=== PATIENT | female | born 1980 | race Caucasian/White ===

== ENCOUNTER 2020-05-28 09:29 | Outpatient (CLI) | payer BC, SELFPAY ==
--- NOTE | ~2020-05-28 | XR_ITS ---
EXAMINATION: XR knee RT min 4V DATE: 05/28/2020 09:55 INDICATION: Right knee pain TECHNIQUE: Four views of the right knee were obtained. COMPARISON: None. FINDINGS: Alignment is normal. No fracture or osteochondral lesion. There is mild tricompartmental os teoarthritis characterized by tiny marginal osteophytes. No joint effusion/synovitis. Soft tissues a re unremarkable. IMPRESSION: 1. No acute osseous abnormality. Reviewed, dictated and finalized at location A.
[2020-05-28 09:49] LABS: Basophils Absolute Auto 0.04 K/mm3 (0.00-0.10); Basophils Percent Auto 0.5 % (0.0-1.0); Eosinophils Absolute Auto 0.14 K/mm3 (0.02-0.50); Eosinophils Percent Auto 1.9 % (1.0-6.0); Hematocrit 36.4 % (35.0-49.0); Hemoglobin 12.1 g/dL (12.0-15.0); Immature Granulocyte Absolute 0.03 K/mm3 (0.00-0.00); Immature Granulocyte Percent A 0.4 % (0.0-0.0); Lymphocytes Absolute Auto 2.71 K/mm3 (1.10-4.50); Lymphocytes Percent Auto 36.5 % (18.0-42.0); Mean Corpuscular HGB Conc 33.2 g/dL (32.0-36.0); Mean Corpuscular Volume 81.3 fL (78.0-102.0); Mean Platelet Volume 9.9 fl (9.2-11.8); Monocytes Percent Auto 6.7 % (2.0-11.0); Platelet Count Result 242 K/mm3 (150-420); Red Blood Count 4.48 M/mm3 (4.20-5.40); Red Cell Distribution Width 13.2 % (11.6-14.4); White Blood Count 7.4 K/mm3 (4.8-10.8)
[2020-05-28 11:13] LABS: Alanine Aminotransferase 22 U/L (14-59); Albumin Level 3.8 g/dL (3.4-5.0); Alkaline Phosphatase 83 U/L (46-116); Anion Gap 13.1 mmol/L (7-16); Aspartate Amino Transferase 16 U/L (15-37); Bilirubin,Total 0.5 mg/dL (0.00-1.00); Blood Urea Nitrogen 10 mg/dL (7-18); Calcium 8.5 mg/dL (8.5-10.1); Carbon Dioxide 25 mmol/L (21-32); Chloride 105 mmol/L (98-108); Cholesterol 187 mg/dL (0-200); Estimated Glomerular Filt Rate > 60; Free T3 2.27 pg/mL (2.18-3.98); Free T4 Free Thyroxine 1.13 ng/dL (0.76-1.46); Glucose 104 mg/dL (70-99); HDL Direct 49 mg/dL (40-60); LDL Cholesterol Calculated 118 mg/dL (<130); Osmolality Calculated 287 mOsm/kg (285-295); Potassium 4.1 mmol/L (3.5-5.1); Sodium 139 mmol/L (136-145); Thyroid Stimulating Hormone 1.31 uIU/mL (0.36-3.74); Triglycerides 99 mg/dL (0-150)
== END 2020-05-28 09:30 | disposition home or self-care (01) ==
LOC: CHSLAB 09:35
PROVIDERS: PCP Internal Medicine; Visit Provider Internal Medicine
DX: R53.83 Other fatigue (principal); I10 Essential (primary) hypertension; M25.561 Pain in right knee
CPT/HCPCS: 36415; 73564; 80053; 80061; 84439; 84443; 84481; 85025

== ENCOUNTER 2021-11-07 16:37 | Emergency (ER) | payer BC, SELFPAY ==
[2021-11-07 16:42] VITALS: BP 183/102; PULSE 84; RESP 16; TEMP 37.1; O2SAT 100
--- NOTE | 2021-11-07 16:52 | ED.URI ---
HPI - URI/Sore Throat General Chief Complaint: Upper Respiratory Infection Stated Complaint: SORE THROAT/HEADACHE/FEVER/EARACHE Time Seen by Provider: 11/07/21 16:52 Source: patient and RN notes reviewed Mode of arrival: ambulatory Limitations: no limitations History of Present Illness HPI Narrative: 41-year-old female presents with concern for left ear pain. She reports pressure behind her eyes, sore throat, headache. Reports symptoms started yesterday. She denies [id number] intervention. She denies cough, shortness of breath, body aches, chills, sweats. Reports fever yesterday. MD elicited complaint: cough and sore throat Related Data Allergies Allergy/AdvReac Type Severity Reaction Status Date / Time No Known Allergies Allergy Unverified 07/19/15 12:09 Review of Systems Review of Systems: CONSTITUTIONAL: Denies malaise, chills, sweats. Reports fever yesterday. EYES: Denies visual changes, redness, or discharge. ENT: Denies rhinorrhea, congestion. Reports sinus pain, otalgia and sore throat. CARDIOVASCULAR: Denies chest pain, palpitations, or edema. RESPIRATORY: Denies cough. Denies dyspnea. GASTROINTESTINAL: Denies abdominal pain, nausea, vomiting, diarrhea SKIN: Denies rash or itching. MUSCULOSKELETAL: Denies myalgia. NEUROLOGIC: Reports headache. All systems reviewed & are unremarkable except as noted in HPI and below PMFSH Comments At time of signature, agree with nursing past medical, surgical, social and family history. There is no relevant family history pertinent to the presenting complaint Exam Narrative: GENERAL: Well-appearing, well-nourished, and in no acute distress. HEAD: Normocephalic EYES: PERRLA, conjunctivae clear ENT: Nares clear. Mucous membranes moist. TM pearly valdez with sharp light reflex bilaterally; no tragal tenderness. Oropharynx not erythematous without lesions. Tonsils not enlarged and without exudate, no drooling, no hoarseness, no trismus, uvula midline. NECK: Supple. No lymphadenopathy CHEST: Clear to auscultation, breath sounds equal. No wheezing, rhonchi, rales, or stridor. No respiratory distress, speaks in full sentences. HEART: Regular rate and rhythm. No murmur heard. SKIN: Warm, dry, no rash. NEURO: Alert and oriented x3. PSYCH: Normal mood and affect Course Course Emergency Course: Patient is aware of diagnosis, understands and agrees to treatment plan. Anticipatory guidance given. Patient agrees to follow-up as directed and is aware of reasons to seek care at the emergency department. Portions of this record may have been created with voice recognition software Vital Signs Vital signs: Vital Signs Temperature 98.8 F 11/07/21 16:42 Pulse Rate 84 11/07/21 16:42 Respiratory Rate 16 11/07/21 16:42 Blood Pressure 183/102 H 11/07/21 16:42 Pulse Oximetry 100 11/07/21 16:42 Temperature 98.8 F 11/07/21 16:42 Pulse Rate 84 11/07/21 16:42 Respiratory Rate 16 11/07/21 16:42 Blood Pressure 183/102 H 11/07/21 16:42 Pulse Oximetry 100 11/07/21 16:42 Reviewed. MDM - URI/Sore Throat MDM Narrative Medical decision making narrative: Differential diagnosis considered: Hernandez virus, strep pharyngitis, allergic rhinitis, upper respiratory tract infection, sinusitis, rhinosinusitis, nasopharyngitis. viral pharyngitis, otitis media, otitis externa, pneumonia, bronchitis, viral cough syndrome, viral syndrome, and influenza. Exam findings show no acute concerns or changes; patient is non-toxic appearing and is in no distress. Patient is appropriate for outpatient treatment and follow-up. Lab Data Attestation: I reviewed the patient's lab results. Critical Care Time Critical Care Time Critical Care Time: No Discharge Plan Discharge Clinical Impression: Upper respiratory infection Qualifiers: URI type: unspecified viral URI Qualified Code(s): J06.9 - Acute upper respiratory infection, unspecified Patient Disposition: Home, Self-Care Condit
[2021-11-08 13:33] LABS: SARS-CoV-2 RNA PCR Negative
== END 2021-11-07 17:20 | disposition home or self-care (01) ==
PROVIDERS: Emergency Provider Nurse Practitioner; PCP Internal Medicine
DX: J06.9 Acute upper respiratory infection, unspecified (principal); Z20.822 Contact with and (suspected) exposure to COVID-19
CPT/HCPCS: 87426; 99213; C9803; G0463; U0003; U0005

== ENCOUNTER 2021-12-29 07:26 | Outpatient (CLI) | payer BC, SELFPAY ==
--- NOTE | ~2021-12-29 | MM_ITS ---
EXAMINATION: MM screening julia BI w kalpana HISTORY: Screening TECHNIQUE: Craniocaudal and mediolateral oblique 3-D tomosynthesis images were obtained and synthetic 2-D images were generated. CAD analysis was submitted and interpreted. COMPARISON: No prior mammogram is available for comparison at this institution. BREAST PARENCHYMAL COMPOSITION: There are scattered areas of fibroglandular density. FINDINGS: There is a focal mass in the upper outer quadrant of the left breast posteriorly. There are no suspicious masses, calcifications or architectural distortion in the right breast to suggest vanessa gnancy. IMPRESSION: 1. Focal mass upper outer quadrant of the left breast posteriorly. 2. Additional mammographic views and possible breast ultrasound are recommended. BI-RADS Category 0: Incomplete: Needs additional imaging evaluation. Reviewed, dictated and finalized at location A. CAL RECORDS SUPERVISOR IMPRESSION: 1. Focal mass upper outer quadrant of the left breast posteriorly. 2. Additional mammographic views and possible breast ultrasound are recommended . BI-RADS Category 0: Incomplete: Needs additional imaging evaluation.
== END 2021-12-29 07:27 | disposition home or self-care (01) ==
LOC: CHSIMG 07:27
PROVIDERS: PCP Internal Medicine; Visit Provider Obstetrics & Gynecology
DX: Z12.31 Encounter for screening mammogram for malignant neoplasm of breast (principal)
CPT/HCPCS: 77063; 77067

== ENCOUNTER 2022-01-08 09:40 | Outpatient (CLI) | payer BC, SELFPAY ==
--- NOTE | ~2022-01-08 | MMUS_ITS ---
EXAMINATION: MM diagnostic julia LT w kalpana, US breast LT limited HISTORY: Left breast mass on baseline screening mammogram TECHNIQUE: Additional 3-D tomosynthesis images of the left breast were performed and synthetic 2-D im ages were generated. CAD analysis was submitted and interpreted. High resolution limited left breast ultrasound was performed. COMPARISON: 12/29/2021 FINDINGS: MAMMOGRAPHIC FINDINGS: There is an approximately 11 mm oval, obscured, equal density mass in the outer breast at the 3:00 lo cation 12 cm from the nipple. ULTRASOUND: There is a 9 mm x 5 mm, hypoechoic, irregular mass with indistinct margins at the 2:00 location 8 cm from the nipple with no posterior features or internal vascularity. IMPRESSION: 1. Indeterminate left breast mass. 2. Ultrasound-guided biopsy is recommended. BI-RADS category 4, suspicious findings. Reviewed, dictated and finalized at location A. ENT SERVICE REP IMPRESSION: 1. Indeterminate left breast mass. 2. Ultrasound-guided biopsy is recommended. BI-RADS category 4, suspicious findings.
== END 2022-01-08 09:41 | disposition home or self-care (01) ==
PROVIDERS: PCP Internal Medicine; Visit Provider Obstetrics & Gynecology
DX: R92.8 Other abnormal and inconclusive findings on diagnostic imaging of breast (principal)
CPT/HCPCS: 76642; 77061; 77065; G0279

== ENCOUNTER 2022-02-10 07:33 | Outpatient (CLI) | payer BC, SELFPAY ==
[2022-02-10 07:53] LABS: Basophils Absolute Auto 0.07 K/mm3 (0.00-0.10); Basophils Percent Auto 0.7 % (0.0-1.0); Eosinophils Absolute Auto 0.21 K/mm3 (0.02-0.50); Eosinophils Percent Auto 2.2 % (1.0-6.0); Hematocrit 37.7 % (35.0-49.0); Hemoglobin 11.6 g/dL (12.0-15.0); Immature Granulocyte Absolute 0.03 K/mm3 (0.00-0.00); Immature Granulocyte Percent A 0.3 % (0.0-0.0); Lymphocytes Absolute Auto 3.86 K/mm3 (1.10-4.50); Lymphocytes Percent Auto 40.6 % (18.0-42.0); Mean Corpuscular HGB Conc 30.8 g/dL (32.0-36.0); Mean Corpuscular Hemoglobin 22.9 pg (27.0-31.0); Mean Corpuscular Volume 74.4 fL (78.0-102.0); Mean Platelet Volume 9.6 fl (9.2-11.8); Monocytes Absolute Auto 0.66 K/mm3 (0.10-0.90); Monocytes Percent Auto 6.9 % (2.0-11.0); Neutrophils Absolute Auto 4.7 K/mm3 (1.7-7.2); Neutrophils Percent Auto 49.3 % (50.0-70.0); Platelet Count Result 334 K/mm3 (150-420); Red Blood Count 5.07 M/mm3 (4.20-5.40); White Blood Count 9.5 K/mm3 (4.8-10.8)
[2022-02-10 08:03] LABS: Hemoglobin A1C 6.8 % (<5.7)
[2022-02-10 08:49] LABS: Alanine Aminotransferase 23 U/L (14-59); Albumin Level 3.8 g/dL (3.4-5.0); Alkaline Phosphatase 93 U/L (46-116); Anion Gap 8 mmol/L (8-16); Aspartate Amino Transferase 12 U/L (15-37); Bilirubin,Total 0.3 mg/dL (0.00-1.00); Blood Urea Nitrogen 13 mg/dL (7-18); Calcium 8.9 mg/dL (8.5-10.1); Carbon Dioxide 26 mmol/L (21-32); Chloride 103 mmol/L (98-108); Cholesterol 214 mg/dL (0-200); Estimated Glomerular Filt Rate > 60; Folic Acid 15.7 ng/mL (8.6->20); Glucose 127 mg/dL (70-99); HDL Direct 53 mg/dL (40-60); LDL Cholesterol Calculated 135 mg/dL (<130); Osmolality Calculated 286 mOsm/kg (285-295); Potassium 4.4 mmol/L (3.5-5.1); Sodium 137 mmol/L (136-145); Total Protein 6.9 g/dL (6.4-8.2); Triglycerides 130 mg/dL (0-150); Vitamin B12 269 pg/mL (193-986)
== END 2022-02-10 07:34 | disposition home or self-care (01) ==
LOC: CHSLAB 07:36
PROVIDERS: PCP Internal Medicine; Visit Provider Internal Medicine
DX: E11.9 Type 2 diabetes mellitus without complications (principal); I10 Essential (primary) hypertension
CPT/HCPCS: 36415; 80053; 80061; 82607; 82746; 83036; 85025

== ENCOUNTER 2022-10-06 08:21 | Outpatient (CLI) | payer BC, SELFPAY ==
[2022-10-06 08:56] LABS: Hematocrit 32.6 % (35.0-49.0); Hemoglobin 10.4 g/dL (12.0-15.0); Mean Corpuscular HGB Conc 31.9 g/dL (32.0-36.0); Mean Corpuscular Hemoglobin 24.3 pg (27.0-31.0); Mean Corpuscular Volume 76.2 fL (78.0-102.0); Mean Platelet Volume 9.6 fl (9.2-11.8); Platelet Count Result 250 K/mm3 (150-420); Red Blood Count 4.28 M/mm3 (4.20-5.40); Red Cell Distribution Width 13.8 % (11.6-14.4); White Blood Count 6.7 K/mm3 (4.8-10.8)
[2022-10-06 10:37] LABS: Alanine Aminotransferase 22 U/L (14-59); Albumin Level 3.5 g/dL (3.4-5.0); Alkaline Phosphatase 75 U/L (46-116); Anion Gap 9 mmol/L (8-16); Aspartate Amino Transferase 14 U/L (15-37); Bilirubin,Total 0.5 mg/dL (0.00-1.00); Blood Urea Nitrogen 11 mg/dL (7-18); Calcium 8.6 mg/dL (8.5-10.1); Carbon Dioxide 25 mmol/L (21-32); Chloride 105 mmol/L (98-108); Estimated Glomerular Filt Rate > 60; Ferritin 10 ng/mL (8-252); Folic Acid 11.8 ng/mL (8.6->20); Glucose 99 mg/dL (70-99); Iron 28 ug/dL (50-170); Lipase 114 U/L (73-393); Magnesium 1.8 mg/dL (1.8-2.4); Osmolality Calculated 287 mOsm/kg (285-295); Percent Iron Saturation 6 % (12-57); Potassium 4.2 mmol/L (3.5-5.1); Sodium 139 mmol/L (136-145); Total Protein 6.7 g/dL (6.4-8.2); Vitamin B12 228 pg/mL (193-986)
[2022-10-08 19:30] LABS: Vitamin D 25 Hydroxy 10 ng/mL (30-100)
[2022-10-10 07:44] LABS: Alpha-Tocopherol 8.7 mg/L (5.7-19.9); Beta-Gamma Tocopherol 1.2 mg/L (<=4.3); Vitamin A 28 mcg/dL (38-98)
[2022-10-10 15:10] LABS: Zinc 41 mcg/dL (60-130)
[2022-10-10 15:17] LABS: Vitamin B1 7 nmol/L (8-30)
[2022-10-10 22:29] LABS: Parathyroid Intact 67 pg/mL (14-64)
[2022-10-16 14:37] LABS: Vitamin K1 88 pg/mL (130-1500)
== END 2022-10-06 08:22 | disposition home or self-care (01) ==
LOC: CHSLAB 08:25
PROVIDERS: PCP Internal Medicine
DX: E66.01 Morbid (severe) obesity due to excess calories (principal); Z98.84 Bariatric surgery status; E56.9 Vitamin deficiency, unspecified; E55.9 Vitamin D deficiency, unspecified; K91.2 Postsurgical malabsorption, not elsewhere classified
CPT/HCPCS: 36415; 80053; 82306; 82525; 82607; 82728; 82746; 83540; 83550; 83690; 83735; 83970; 84425; 84446; 84590; 84597; 84630; 85027

== ENCOUNTER 2023-02-05 15:32 | Outpatient (RCR) | payer BC, SELFPAY ==
--- NOTE | 2023-02-05 16:18 | PTOPEVAL1 ---
Assessment and note entered by Db Jensen Evaluation Information Assessment Status Evaluation Diagnosis left elbow pain Onset 05/11/22 Subjective Information Pt. recalls no particular incident that initiated her pain. She describes her pain in the middle 1/ 3 of the left bicep and tricep mm. She describes pain with reaching behind her back to hook her bra . She states that she went to unplug something yesterday and felt sharp pain. she reports that she cannot sleep on the left side due to pain. She states that she also has difficulty lifting the arm away from her body. She will get occasional numbness in the ring and little finger. She reports that she is capable of completing her job despite the pain. She reports that her goal for therapy is to reduce her pain. Reported Pain Level Pain Score 0: Self Report Assessment PT Clinical Summary Pt. is a 42 year old female who enters the clinic with left arm pain. She presents with indication of possible left long head of biceps pathology as well as possibel adhesive capsulitis of the left shoulder. She currently presents with impaired proximal left u.e. strength, decreased ROM and pain. Continued skilled PT is indicated in order to improve these areas to allow for improved IADL performance. Plan of Care Interventions Electrical Stimulation,Hot Pack/Cold Pack,Manual Therapy,Patient/Caregiver Educati,Therapeutic Activities,Therapeutic Exercise,Self-Care/Home Management PT Services Indicated Yes Treatment Frequency and 2x/week x 12 visits Duration These treatments will address the objective and functional deficits as defined above. The patient will be advanced safely and appropriately in order for the patient to progress towards his/her prior level of function. Additional exercises will be introduced and as well as a comprehensive home exercise program upon discharge, if needed, ?to ensure carryover of functional gains achieved in the clinic. This treatment plan has been reviewed and agreement upon by the patient.
== END 2023-02-27 08:46 | disposition home or self-care (01) ==
LOC: CHSPT 15:32
DX: M25.522 Pain in left elbow (principal)
CPT/HCPCS: 97014; 97110; 97140; 97161; G0283

== ENCOUNTER → 2023-03-27 11:26 | Outpatient (CLI) | payer BC, SELFPAY ==
--- NOTE | ~2023-03-27 | MR_ITS ---
MRI of the left shoulder Technique: Axial proton-density fat-sat images, coronal proton density fat-sat and T2 fat-sat images, and sagittal T1-weighted and T2 fat-sat images were acquired. Clinical History: Impingement syndrome Findings: There is no significant degenerative change at the AC joint. No subacromial spur. Coracocla vicular, coracoacromial, coracohumeral ligaments are intact. Supraspinatus and infraspinatus tendons are intact, without partial or full-thickness tear. Subscapul luis alfredo tendon is intact. Tendon of long head of the biceps is intact. No labral tear identified. Inferior glenohumeral ligament is intact, with possible mild thickening. No degenerative change or ef fusion of the glenohumeral joint. No fluid distention of the subacromial/subdeltoid bursa. No muscle atrophy or edema. Impression: Possible mild thickening of inferior glenohumeral ligament. Correlate for possibility of adhesive cap sulitis. No other significant findings. Reviewed, dictated and finalized at [facility]. Impression: Possible mild thickening of inferior glenohumeral ligament. Correlate for possi bility of adhesive capsulitis. No other significant findings.
== END ==
PROVIDERS: PCP Internal Medicine; Visit Provider Physician Assistant Surgical
DX: M75.42 Impingement syndrome of left shoulder (principal)
CPT/HCPCS: 73221

== ENCOUNTER 2023-05-03 14:21 | Outpatient (CLI) | payer BC, SELFPAY ==
--- NOTE | ~2023-05-03 | MM_ITS ---
EXAMINATION: MM screening julia BI w k[place] HISTORY: Screening mammogram TECHNIQUE: Craniocaudal and mediolateral oblique 3-D tomosynthesis images were obtained and synthetic 2-D images were generated. CAD analysis was submitted and interpreted. COMPARISON: diagnostic left mammogram and limited left breast ultrasound 12/29/2021 bilateral screening mammogram BREAST PARENCHYMAL COMPOSITION: There are scattered areas of fibroglandular density. FINDINGS: Interval resolution of previously reported mass in the posterior upper outer left breast si nce December 29, 2021. There is no evidence of suspicious mass, calcification, or architectural disto rtion to suggest malignancy in either breast. There has been no suspicious interval change. IMPRESSION: 1. No mammographic evidence of malignancy. 2. Recommend routine screening mammography in one year. BI-RADS Category 1: Negative Reviewed, dictated and finalized at location A.
== END 2023-05-03 14:22 | disposition home or self-care (01) ==
LOC: CHSIMG 14:22
PROVIDERS: PCP Internal Medicine; Visit Provider Obstetrics & Gynecology
DX: Z12.31 Encounter for screening mammogram for malignant neoplasm of breast (principal)
CPT/HCPCS: 77063; 77067

== ENCOUNTER 2023-07-17 16:16 | Emergency (ER) | payer BC, SELFPAY ==
[2023-07-17 16:20] VITALS: BP 151/98; PULSE 60; RESP 14; TEMP 36.7; O2SAT 100
--- NOTE | 2023-07-17 16:58 | ED.ANIMALBIT ---
HPI - Animal Bite General Chief Complaint: Animal Bite Stated Complaint: cat scratch Time Seen by Provider: 07/17/23 16:58 Source: patient Mode of arrival: ambulatory Limitations: no limitations History of Present Illness HPI narrative: 43-year-old female with a history of hypertension, diabetes mellitus presents to the ER with -- abrasions on her right medial wrist caused by her cat bite. She thinks is more likely to be a bite rather than a scratch. No bleeding. Cat is domesticated. complaint: animal bite Onset (ago): hour(s) ( 8 hours ago) Animal: cat Description of animal: household pet Mechanism: bite Location: other ( wrist) Pain description: other ( no pain) Associated symptoms: none Related Data Home Medications Medication Instructions Recorded Confirmed lisinopril 2.5 mg tablet 2.5 mg PO DAILY 02/22/23 07/17/23 semaglutide 0.25 mg or 0.5 mg (2 0.25 mg subcut WEEKLY 02/22/23 07/17/23 mg/3 mL) subcutaneous pen injector (Ozempic) Allergies Allergy/AdvReac Type Severity Reaction Status Date / Time No Known Allergies Allergy Verified 07/17/23 16:32 Review of Systems Review of Systems: All systems reviewed & are unremarkable except as noted in HPI and below PMFSH Past Medical History Medical History Sensitivity to medication [place] Surgical History Surgical History History of gastric surgery (~2015) Gastric sleeve History of gastric surgery Revision Sleeve History of hysterectomy Family History Family History Other Breast cancer Father Diabetes mellitus Acute myocardial infarction Mother Diabetes mellitus Social History Social History Smoking status: Former smoker Tobacco type: cigarettes Alcohol intake: current Substance use: current Substance use type: other Other substance usage details: Gummies Lack of Transportation: No Lack of Food: Never True Current Housing: I Have Housing Concerned About Future Housing: No Difficulty Paying Gas/Electric Bills: No Difficulty Paying for Meds: No Currently Unemployed: No Education: Associate Degree Difficulty w/ Childcare or Family Care: No Exam Const: General: cooperative, healthy appearing and comfortable HENMT: Head: normal to inspection, No palpable skull fracture present, normocephalic and atraumatic Ears: hearing grossly normal bilaterally, external ears normal and TM's normal bilaterally Face/Nose/Sinus: Normal external nose present, Normal nares present and No nasal polyps present Mouth: Yes Normal oral and palatal mucosa present, Yes lip normal and Yes tongue normal Throat: posterior oropharynx normal, tonsils normal and uvula midline Eyes: General: appearance normal, both eyes and all related structures Visual Contreras: normal visual contreras by confrontation Alignment and Position: alignment normal Periorbital: periorbital findings normal Eyelids: eyelids normal Conjunctivae: conjunctivae normal Sclera: sclerae normal Cornea: corneas normal Pupils: Equal, round and reactive pupils present EOM: EOMs intact bilaterally Direct Ophthalmoscopy: normal light reflex Neck: Neck: normal visual inspection, full ROM, no lymphadenopathy, no meningeal signs and trachea midline Thyroid: thyroid normal Carotids: normal carotid upstroke Lymphatic: no lymphadenopathy noted Chest: Chest palpation & inspection: normal inspection of the chest Resp: Effort & Inspection: normal respiratory effort Auscultation: clear to auscultation bilaterally Cardio: Jugular venous distension: no JVD Palpation: normal PMI Rate: regular rate Rhythm: regular rhythm Heart sounds: S1 normal heart sound present and S2 normal heart sound present GI: Inspection: normal to inspection Other: or
[2023-07-17 17:20] VITALS: BP 125/63; PULSE 79; RESP 16; O2SAT 99
[2023-07-17 18:08] VITALS: BP 136/78; PULSE 62; RESP 16; TEMP 36.5; O2SAT 99
== END 2023-07-17 18:18 | disposition home or self-care (01) ==
PROVIDERS: Emergency Provider Internal Medicine Critical Care Medicine
DX: S61.551A Open bite of right wrist, initial encounter (principal); I10 Essential (primary) hypertension; E11.9 Type 2 diabetes mellitus without complications; Z87.891 Personal history of nicotine dependence; W55.01XA Bitten by cat, initial encounter
CPT/HCPCS: 99283

== ENCOUNTER 2023-08-24 10:53 | Outpatient (CLI) | payer BC, SELFPAY ==
[2023-08-24 11:12] LABS: Basophils Absolute Auto 0.06 K/mm3 (0.00-0.10); Basophils Percent Auto 0.7 % (0.0-1.0); Eosinophils Absolute Auto 0.14 K/mm3 (0.02-0.50); Eosinophils Percent Auto 1.5 % (1.0-6.0); Hemoglobin 11.5 g/dL (12.0-15.0); Immature Granulocyte Absolute 0.04 K/mm3 (0.00-0.00); Immature Granulocyte Percent A 0.4 % (0.0-0.0); Lymphocytes Absolute Auto 3.55 K/mm3 (1.10-4.50); Lymphocytes Percent Auto 38.8 % (18.0-42.0); Mean Corpuscular HGB Conc 31.9 g/dL (32.0-36.0); Mean Corpuscular Hemoglobin 24.5 pg (27.0-31.0); Mean Corpuscular Volume 76.6 fL (78.0-102.0); Mean Platelet Volume 9.2 fl (9.2-11.8); Monocytes Absolute Auto 0.63 K/mm3 (0.10-0.90); Monocytes Percent Auto 6.9 % (2.0-11.0); Neutrophils Absolute Auto 4.7 K/mm3 (1.7-7.2); Neutrophils Percent Auto 51.7 % (50.0-70.0); Platelet Count Result 331 K/mm3 (150-420); White Blood Count 9.2 K/mm3 (4.8-10.8)
[2023-08-24 11:20] LABS: Hemoglobin A1C 5.7 % (<5.7)
[2023-08-24 11:39] LABS: Alanine Aminotransferase 23 U/L (14-59); Albumin Level 3.6 g/dL (3.4-5.0); Alkaline Phosphatase 73 U/L (46-116); Anion Gap 11 mmol/L (8-16); Aspartate Amino Transferase 12 U/L (15-37); Bilirubin,Total 0.5 mg/dL (0.00-1.00); Blood Urea Nitrogen 11 mg/dL (7-18); Calcium 9.1 mg/dL (8.5-10.1); Carbon Dioxide 26 mmol/L (21-32); Chloride 103 mmol/L (98-108); Cholesterol 196 mg/dL (0-200); Estimated Glomerular Filt Rate > 60; Free T3 2.53 pg/mL (2.18-3.98); Free T4 Free Thyroxine 1.34 ng/dL (0.76-1.46); Glucose 101 mg/dL (70-99); HDL Direct 60 mg/dL (40-60); LDL Cholesterol Calculated 115 mg/dL (<130); Osmolality Calculated 289 mOsm/kg (285-295); Potassium 4.1 mmol/L (3.5-5.1); Sodium 140 mmol/L (136-145); Thyroid Stimulating Hormone 0.91 uIU/mL (0.36-3.74); Total Protein 6.5 g/dL (6.4-8.2); Triglycerides 104 mg/dL (0-150)
== END 2023-08-24 10:54 | disposition home or self-care (01) ==
LOC: CHSLAB 10:54
PROVIDERS: PCP Internal Medicine; Visit Provider Internal Medicine
DX: R53.83 Other fatigue (principal); I10 Essential (primary) hypertension; E11.9 Type 2 diabetes mellitus without complications
CPT/HCPCS: 36415; 80053; 80061; 83036; 84439; 84443; 84481; 85025

== ENCOUNTER 2023-11-05 09:46 | Emergency (ER) | payer BC, SELFPAY ==
--- NOTE | ~2023-11-05 | CT_ITS ---
EXAMINATION: CT abdomen pelvis wo con DATE: 11/05/2023 10:36 INDICATION: Right lower quadrant pain TECHNIQUE: Computed tomography (CT) of the abdomen and pelvis was performed without intravenous contr ast. The dose-length product was 842.60 mGy-cm. Automated exposure control and iterative reconstructi on technique were employed. COMPARISON: CT dated 03/17/2019 FINDINGS: There are surgical changes of gastric bypass. There is a surgical anastomosis of multiple s mall bowel segments proximally. It the more distal anastomosis there is intraluminal soft tissue at t he anastomotic line which may represent a soft tissue mass or intussusception. There are cholecystect siria clips. Lung bases are unremarkable. Status post cholecystectomy. The liver, spleen, pancreas, adrenal glands and kidneys are unremarkable. No evidence for appendicitis. Nonobstructive bowel pattern. No free ai r or free fluid. No abnormal pelvic masses or fluid collections. IMPRESSION: 1. Multiple surgical anastomosis of the proximal small bowel. At the distal anastomosis there is intr aluminal soft tissue adjacent to the surgical sutures which may represent soft tissue mass or intussu sception, images 97-109 and coronal images 45-50. Cannot exclude malignancy. Reviewed, dictated and finalized at location L. ICULUM ASSISTANT IMPRESSION: 1. Multiple surgical anastomosis of the proximal small bowel. At the distal nidhi stomosis there is intraluminal soft tissue adjacent to the surgical sutures whi ch may represent soft tissue mass or intussusception, images 97-109 and coronal images 45-50. Cannot exclude malignancy.
--- NOTE | 2023-11-05 09:47 | ED.ABDPAIN ---
HPI - Abdominal Pain General Chief Complaint: Abdominal Pain Stated Complaint: abdominal pain Time Seen by Provider: 11/05/23 09:47 Source: patient Mode of arrival: ambulatory Limitations: no limitations History of Present Illness HPI narrative: Patient is a 43-year-old female with right lower quadrant abdominal pain for the pas day. She has had multiple prior abdominal surgeries. MD elicited complaint: abdominal pain Pertinent past history: other ( recurrent abdominal surgeries and gastric bypass) Onset (ago): day(s) (1) Pain Consistency: constant Location: RLQ Severity: moderate Pain scale (0-10): 5 Quality: sharp Radiation: none Migration to: no migration Exacerbating factors: nothing Relieving factors: nothing Associated symptoms: denies other symptoms Related Data Home Medications Medication Instructions Recorded Confirmed semaglutide 0.25 mg or 0.5 mg (2 0.25 mg subcut WEEKLY 02/22/23 11/05/23 mg/3 mL) subcutaneous pen injector (Ozempic) Allergies Allergy/AdvReac Type Severity Reaction Status Date / Time No Known Allergies Allergy Verified 11/05/23 09:51 Review of Systems Review of Systems: All systems reviewed & are unremarkable except as noted in HPI and below Constitutional: Constitutional: Reports no additional constitutional complaints Eyes: Eyes: Reports no additional eye complaints ENT: Reports system reviewed and no additional complaints, except as documented Cardiovascular: Cardiovascular: Reports no additional cardiovascular complaints Respiratory: Respiratory: Reports no additional respiratory complaints Gastrointestinal: Gastrointestinal: Reports no additional gastrointestinal complaints Genitourinary: Genitourinary: Reports no additional female genitourinary complaints Musculoskeletal: Musculoskeletal: Reports no additional musculoskeletal complaints Integumentary/Breasts: Skin/Breast: Reports system reviewed and no additional complaints, except as docu Neurologic: Reports system reviewed and no additional complaints, except as documented Psychiatric: Psychiatric: Reports no additional psychiatric complaints Endocrine: Endocrine: Reports no additional endocrine complaints Hematologic/Lymphatic: Hematologic/Lymphatic: Reports no additional hematologic/lymphatic complaints Allergic/Immunologic: Allergic/Immunologic: Reports no additional allergic/immunologic complaints PMFSH Past Medical History Medical History Sensitivity to medication [place] Surgical History Surgical History History of gastric surgery (~2015) Gastric sleeve History of gastric surgery Revision Sleeve History of hysterectomy Family History Family History Other Breast cancer Father Diabetes mellitus Acute myocardial infarction Mother Diabetes mellitus Social History Social History Smoking status: Former smoker Tobacco type: cigarettes Alcohol intake: current Substance use: current Substance use type: other Other substance usage details: Gummies Lack of Transportation: No Lack of Food: Never True Current Housing: I Have Housing Concerned About Future Housing: No Difficulty Paying Gas/Electric Bills: No Difficulty Paying for Meds: No Currently Unemployed: No Education: Associate Degree Difficulty w/ Childcare or Family Care: No Exam Const: General: healthy appearing Nutritional Appearance: well nourished Orientation/consciousness: patient oriented x3 HENMT: Head: normal to inspection Ears: external ears normal Face/Nose/Sinus: Normal external nose present Eyes: Conjunctivae: conjunctivae normal Pupils: Equal, round and reactive pupils present EOM: EOMs intact bilaterally Neck: Neck: normal visual inspection Chest: [place]
[2023-11-05 09:50] VITALS: BP 172/118; PULSE 91; RESP 18; TEMP 36.6; O2SAT 98
[2023-11-05 10:03] LABS: Basophils Absolute Auto 0.05 K/mm3 (0.00-0.10); Basophils Percent Auto 0.6 % (0.0-1.0); Eosinophils Absolute Auto 0.15 K/mm3 (0.02-0.50); Eosinophils Percent Auto 1.9 % (1.0-6.0); Hematocrit 37.6 % (35.0-49.0); Hemoglobin 11.7 g/dL (12.0-15.0); Immature Granulocyte Absolute 0.04 K/mm3 (0.00-0.00); Immature Granulocyte Percent A 0.5 % (0.0-0.0); Lymphocytes Absolute Auto 2.71 K/mm3 (1.10-4.50); Lymphocytes Percent Auto 34.7 % (18.0-42.0); Mean Corpuscular HGB Conc 31.1 g/dL (32.0-36.0); Mean Corpuscular Hemoglobin 23.7 pg (27.0-31.0); Mean Corpuscular Volume 76.1 fL (78.0-102.0); Mean Platelet Volume 9.2 fl (9.2-11.8); Monocytes Absolute Auto 0.57 K/mm3 (0.10-0.90); Monocytes Percent Auto 7.3 % (2.0-11.0); Neutrophils Absolute Auto 4.3 K/mm3 (1.7-7.2); Platelet Count Result 334 K/mm3 (150-420); Red Blood Count 4.94 M/mm3 (4.20-5.40); Red Cell Distribution Width 13.2 % (11.6-14.4); White Blood Count 7.8 K/mm3 (4.8-10.8)
[2023-11-05 10:04] LABS: Appearance Urine Clear (Clear); Bilirubin Urine Negative (Negative); Blood Urine Negative (Negative); Color Urine Yellow (Yellow); Glucose Urine UA Negative (Negative); Ketones Urine Trace (Negative); Leukocyte Esterase Ur Trace LEU/UL (Negative); Nitrate Urine Negative (Negative); Protein Urine Trace (Negative); Specific Grav Ur >= 1.030 (1.010-1.020); Urobilinogen Urine 0.2 mg/dL (0.2-1.0)
[2023-11-05 10:06] LABS: Add Urine Microscopic? YES; Bacteria Urine Trace /hpf; RBC Urine None seen /hpf (0-2); Squamous Epithelial Cell Urine Moderate /hpf (Few); WBC Urine 0-3 /hpf (0-3)
[2023-11-05 10:26] LABS: Alanine Aminotransferase 21 U/L (14-59); Albumin Level 3.5 g/dL (3.4-5.0); Alkaline Phosphatase 70 U/L (46-116); Anion Gap 9 mmol/L (8-16); Aspartate Amino Transferase 11 U/L (15-37); Bilirubin,Total 0.5 mg/dL (0.00-1.00); Blood Urea Nitrogen 8 mg/dL (7-18); Calcium 8.9 mg/dL (8.5-10.1); Carbon Dioxide 28 mmol/L (21-32); Chloride 98 mmol/L (98-108); Estimated CRCL calculation 87 ml/min; Estimated Glomerular Filt Rate > 60; Glucose 95 mg/dL (70-99); Lipase 44 U/L (16-77); Osmolality Calculated 278 mOsm/kg (285-295); Potassium 3.9 mmol/L (3.5-5.1); Sodium 135 mmol/L (136-145)
--- NOTE | 2023-11-05 11:00 | PC.NURSE ---
PT DENIES ANY NEEDS OR COMPLAINTS AT THIS TIME. PT IS AWAITING RETURN CALL FROM SURGEON AT [facility]. WILL CONTINUE TO MONITOR.
[2023-11-05 11:37] LABS: Lactic Acid Reflex 1.2 mmol/L (0.4-2.0)
--- NOTE | 2023-11-05 12:11 | PC.NURSE ---
AT 1142, THIS RN CALLS DR RODRIGUEZ'S OFFICE AND WAS INFORMED THE INNOVATION MANAGER FROM [facility] WAS ON THE OTHER LINE PLACING THE CONSULT TO DR RODRIGUEZ. DR RODRIGUEZ CALLED BACK AND PT IS TO BE FOLLOWED UP OUT PT IN HIS OFFICE.
[2023-11-05] MEDS: KETOROLAC (*BKC) 60 MG/2 ML VIAL IM (12:18)
[2023-11-05 12:30] VITALS: BP 170/98; PULSE 88; RESP 18; O2SAT 98
== END 2023-11-05 12:30 | disposition home or self-care (01) ==
PROVIDERS: Emergency Provider Emergency Medicine; PCP Internal Medicine
DX: R10.31 Right lower quadrant pain (principal); Z87.891 Personal history of nicotine dependence
CPT/HCPCS: 36415; 74176; 80053; 81001; 83605; 83690; 85025; 96372; 99284; J1885

== ENCOUNTER 2024-09-12 08:41 | Outpatient (CLI) | payer BC, SELFPAY ==
[2024-09-12 08:56] LABS: Basophils Absolute Auto 0.08 K/mm3 (0.00-0.10); Basophils Percent Auto 0.8 % (0.0-1.0); Eosinophils Absolute Auto 0.17 K/mm3 (0.02-0.50); Eosinophils Percent Auto 1.6 % (1.0-6.0); Hematocrit 40.4 % (35.0-49.0); Hemoglobin 13.9 g/dL (12.0-15.0); Immature Granulocyte Absolute 0.04 K/mm3 (0.00-0.00); Immature Granulocyte Percent A 0.4 % (0.0-0.0); Lymphocytes Absolute Auto 4.45 K/mm3 (1.10-4.50); Lymphocytes Percent Auto 41.9 % (18.0-42.0); Mean Corpuscular HGB Conc 34.4 g/dL (32-36); Mean Corpuscular Hemoglobin 29.6 pg (27.0-31.0); Mean Corpuscular Volume 86.1 fL (78.0-102.0); Mean Platelet Volume 9.8 fl (9.2-11.8); Monocytes Absolute Auto 0.72 K/mm3 (0.10-0.90); Monocytes Percent Auto 6.8 % (2.0-11.0); Neutrophils Absolute Auto 5.15 K/mm3 (1.70-7.20); Neutrophils Percent Auto 48.5 % (50.0-70.0); Platelet Count Result 305 K/mm3 (150-420); Red Blood Count 4.69 M/mm3 (4.20-5.40); Red Cell Distribution Width 12.4 % (11.6-14.4); White Blood Count 10.6 K/mm3 (4.8-10.8)
[2024-09-12 09:12] LABS: Hemoglobin A1C 4.7 % (<5.7)
[2024-09-12 09:39] LABS: Alanine Aminotransferase 29 U/L (14-59); Albumin Level 3.8 g/dL (3.4-5.0); Alkaline Phosphatase 70 U/L (46-116); Anion Gap 11 mmol/L (4-12); Aspartate Amino Transferase 16 U/L (15-37); Bilirubin,Total 0.6 mg/dL (0.00-1.00); Blood Urea Nitrogen 9 mg/dL (7-18); Calcium 9.1 mg/dL (8.5-10.1); Carbon Dioxide 28 mmol/L (21-32); Chloride 102 mmol/L (98-108); Cholesterol 170 mg/dL (0-200); Estimated Glomerular Filt Rate > 60; Free T3 2.35 pg/mL (2.18-3.98); Free T4 Free Thyroxine 1.16 ng/dL (0.76-1.46); Glucose 93 mg/dL (70-99); HDL Direct 50 mg/dL (40-60); LDL Cholesterol Calculated 88 mg/dL (<130); Osmolality Calculated 290 mOsm/kg (285-295); Potassium 3.8 mmol/L (3.5-5.1); Sodium 141 mmol/L (136-145); Thyroid Stimulating Hormone 0.87 uIU/mL (0.36-3.74); Total Protein 6.9 g/dL (6.4-8.2); Triglycerides 161 mg/dL (0-150)
== END 2024-09-12 08:42 | disposition home or self-care (01) ==
LOC: CHSLAB 08:43
PROVIDERS: PCP Internal Medicine; Visit Provider Internal Medicine
DX: I10 Essential (primary) hypertension (principal); R73.03 Prediabetes
CPT/HCPCS: 36415; 80053; 80061; 83036; 84439; 84443; 84481; 85025

== ENCOUNTER 2025-01-04 11:49 | Outpatient (RCR) | payer BC, SELFPAY ==
--- NOTE | 2025-01-04 13:02 | OPREHPOC ---
Outpatient Therapy Plan of Care This is a Multidisciplinary Plan of Care that may contain components documented by all disciplines (PT, OT, and ST.) PT Problem 1 PT Problem #1 Knowledge Deficit PT Goal 1 Goal / Goal Update Independent with HEP. Target Visit 2 PT Problem 2 PT Problem #2 Pain PT Goal 1 Goal / Goal Update Pt to note no more than 3/10 pain when performing stairs. Target Visit 4 PT Problem 3 PT Problem #3 Impaired Strength PT Goal 1 Goal / Goal Update Pt to improve gross lower extremity strength to 5/ 5. Pt to improve gross lower extremity strength to 5/ 5 for improved dynamic stability around the knee for performing stairs. Target Visit 4
--- NOTE | 2025-01-04 13:02 | PTOPEVAL1 ---
Assessment and note entered by Chel Daigle, PT Evaluation Information Assessment Status Evaluation Diagnosis Chondromalacia, R knee ICD-10 Condition Codes (PT) Pain in right knee M25.561 Other ICD-10 Condition Codes ( M94.261 PT) Onset 09/11/24 Subjective Information Mrs. Cox reports she was going down stairs in September when she heard her knee pop, and since then she's continued to have trouble going down stairs. Going up the stairs actually hurts worse than going down, and pain is also increased with standing after prolonged sitting. 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 She reports a sharp shooting pain in the knee, however she got a steroid shot one week ago and has been pain-free since. She did get an x-ray which showed her kneecap is shifted to the right . Reported Pain Level Pain Score 0: Self Report Assessment PT Clinical Summary Mrs. Cox is a 44 year old female with complaints of R knee pain after going down stairs in September. She is not painful at this time due to receiving a steroid shot one week ago, but prior to the shot she noted sharp pain in the knee when going up>down stairs and upon standing up after a period of prolonged sitting, and her pain has been interfering with her ability to work. She demonstrates slight deficits in lower extremity strength as well as pain with patellar mobilizations and quad activation. She will benefit from skilled therapy intervention to improve on these deficits and return to prior level of function. Plan of Care Interventions Electrical Stimulation,Gait Training,Hot Pack/Cold Pack,Intermittent Compression Pump,Manual Therapy ,Neuro Re-education,Patient/Caregiver Education, Therapeutic Activities,Therapeutic Exercise,Self- Care/Home Management PT Services Indicated Yes Treatment Frequency and 1x/week for 4 visits Duration These treatments will address the objective and functional deficits as defined above. The patient will be advanced safely and appropriately in order for the patient to progress towards his/her prior level of function. Additional exercises will be introduced and as well as a comprehensive home exercise program upon discharge, if needed, ?to ensure carryover of functional gains achieved in the clinic. This treatment plan has been reviewed and agreement upon by the patient.
--- NOTE | 2025-02-12 13:33 | PTOPDC ---
Assessment and note entered by Chel Daigle, PT Evaluation Information Assessment Status Discharge - Pt Not Present Diagnosis Chondromalacia, R knee ICD-10 Condition Codes (PT) Pain in right knee M25.561 Other ICD-10 Condition Codes ( M94.261 PT) Onset 09/11/24 Subjective Information Mrs. Cox reports she was going down stairs in September when she heard her knee pop, and since then she's continued to have trouble going down stairs. Going up the stairs actually hurts worse than going down, and pain is also increased with standing after prolonged sitting. 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 She reports a sharp shooting pain in the knee, however she got a steroid shot one week ago and has been pain-free since. She did get an x-ray which showed her kneecap is shifted to the right . Assessment PT Clinical Summary Mrs. Melina Cox has attended 3 total skilled physical therapy visits addressing R knee pain due to chondromalacia. She reports she is feeling improved and would like to be discharged from PT at this time. Plan of Care PT Services Indicated Yes
--- NOTE | 2025-02-12 13:35 | PTOPDC ---
Assessment and note entered by Chel Daigle, PT Evaluation Information Assessment Status Discharge - Pt Not Present Diagnosis Chondromalacia, R knee ICD-10 Condition Codes (PT) Pain in right knee M25.561 Other ICD-10 Condition Codes ( M94.261 PT) Onset 09/11/24 Subjective Information Mrs. Cox reports she was going down stairs in September when she heard her knee pop, and since then she's continued to have trouble going down stairs. Going up the stairs actually hurts worse than going down, and pain is also increased with standing after prolonged sitting. 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 She reports a sharp shooting pain in the knee, however she got a steroid shot one week ago and has been pain-free since. She did get an x-ray which showed her kneecap is shifted to the right . Assessment PT Clinical Summary Mrs. Melina Cox has attended 3 total skilled physical therapy visits addressing R knee pain due to chondromalacia. She reports she is feeling improved and would like to be discharged from PT at this time. Plan of Care PT Services Indicated Yes
== END 2025-01-18 20:00 | disposition home or self-care (01) ==
LOC: CHSPT 11:49
PROVIDERS: Visit Provider Physician Assistant Surgical
DX: M94.261 Chondromalacia, right knee (principal)
CPT/HCPCS: 97110; 97112; 97161; 97530

== ENCOUNTER 2025-02-19 14:49 | Outpatient (CLI) | payer BC, SELFPAY ==
--- NOTE | ~2025-02-19 | MM_ITS ---
EXAMINATION: MM screening julia BI w kalpana HISTORY: Screening TECHNIQUE: Craniocaudal and mediolateral oblique 3-D tomosynthesis images were obtained and synthetic 2-D images were generated. CAD analysis was submitted and interpreted. COMPARISON: Comparison to multiple prior studies sequentially, with oldest reviewed study dated 12/29. BREAST PARENCHYMAL COMPOSITION: Not dense: There are scattered areas of fibroglandular density. FINDINGS: There is no evidence of suspicious mass, calcification, or architectural distortion to sugg est malignancy in either breast. There has been no suspicious interval change. IMPRESSION: 1. No mammographic evidence of malignancy. 2. Recommend routine screening mammography in one year. BI-RADS Category 1: Negative Reviewed, dictated and finalized at location A.
--- OUTSIDE RECORDS SUMMARY | 2025-02-19 14:51 | XMS_ITS | Clinical Summary ---
Author Organization [facility] Address [facility] [place] [address] Care Team Providers Care Risk Control Analyst Name Role Phone Unavailable Primary Care Provider Unavailabl e Social History Tobacco Use Types Packs/Day Years Used Date Smoking Tobacco: Never Assessed Comments Unknown Sex and Gender Information Value Date Recorded Sex Assigned at Not on file Legal Sex Female 4:36 PM CDT Gender Identity Not on file Sexual Orientation Not on file Plan of Treatment Health Maintenance Due Date Last Done Comments Cervical Cancer Screening Pa p Smear (Age 30 to 64) Every 3 Years 1980 Colorectal Cancer Screening Colonoscopy (10 Years) 1980 Annual Physical 02/15/1983 Hepatitis C 02/15/1998 DTaP, Tdap and Td Vaccines ( 1 - Tdap) 02/15/1999 Hepatitis B Vaccines (1 of 3 - 19+ 3-dose series) 02/15/1999 Cervical Cancer Screening Pa p with HPV Testing (Age 30 to 64) Every 5 Years 02/15/2010 Cervical Cancer Screening with HPV 02/15/2010 Mammogram Screening 2020 COVID-19 Vaccine (2023-2 5 season) 2024 HPV Vaccines Aged Out No longer eligi ble based on patient's age to complete this topic Meningococcal B Vaccine Aged Out No l onger eligible based on patient's age to complete this topic Meningococcal Vaccine Aged Out No phil layla eligible based on patient's age to complete this topic Pneumococcal Vaccine: Pediat rics (0 to 5 Years) and At-Risk Patients (6 to 64 Years) Aged Out No longer eligible b ased on patient's age to complete this topic RSV Immunizations Under 20 Months Aged Out No longer eligible based on patient's age to complete this topic
--- OUTSIDE RECORDS SUMMARY | 2025-02-19 14:52 | XMS_ITS | Clinical Summary ---
Author Organization [facility] Address [address] [facility] [address] [place] [address] Phone Care Team Providers Care Winter Sports Manager Name Role Phone Db Liz MD Primary Care Provider [phone] Allergies Active Allergy Reactions Criticality Noted Date Comments Nsaids (Non-Steroidal Anti-Inflammatory Drug) Other (See Comments) 10/28/2019 Gastric bypass surgery Medications lisinopriL (PRINIVIL) 10 mg tablet Take 10 mg by mouth daily. Active HYDROcodone-alan taminophen (NORCO) 5-325 mg tabletIndicatio ns:Breast mass, left Take 1 Tablet by mouth every 4 hours as needed for Pain, Moderate. Max Daily Amount: 6 Tablets 6 Tablet 03/02/2022 2:18 PM CDT 03/02/2022 Active Active Problems Problem Noted Date Diagnosed Date Breast mass, left 03/02/2022 Immunizations Immunization Administration Dates Next Due Influenza Seasonal Unspecified Formulation IM Family History Medical History Relation Name Comments Diabetes Father Hypertension Father Breast Cancer Maternal Aunt Diabetes Mother Relation Name Status Comments Father Alive Maternal Aunt Mother Alive Social History Tobacco Use Types Packs/Day Years Used Date Smoking Tobacco: Former Cigarettes 0.3 5 0 06/09/1996 - 06/09/2001 Smokeless Tobacco: Never Alcohol Use Standard Drinks/Week Comments Yes 0 (1 standard drink = 0.6 oz pur e alcohol) 1/month Comments No Sex and Gender Information Value Date Recorded Sex Assigned at Not on file Legal Sex Female 2:42 PM CDT Gender Identity Not on file Sexual Orientation Not on file Last Filed Vital Signs Vital Sign Reading Time Taken Comments Blood Pressure 119/76 03/02/2022 2:01 PM CDT Pulse 69 03/02/2022 2:01 PM CDT Temperature 35.9 C (96.7 F) 03/02/2022 2:01 PM CDT Respiratory Rate 18 03/02/2022 2:01 PM CDT Oxygen Saturation 98% 03/02/2022 2:01 PM CDT Inhaled Oxygen Concentration - - Weight 103.3 kg (227 lb 10.6 oz) 2021 11:18 AM CDT Height 160 cm (5' 3 ) 03/02/2022 11:18 AM CDT Body Mass Index 40.33 03/02/2022 11:18 AM CDT Plan of Treatment Health Maintenance Due Date Last Done Comments PNEUMOCOCCAL VACCINE 0-49 YEARS (1 of 2 - PCV) 02/15/1986 DIABETES ANNUAL FOOT EXAM 02/15/1998 DIABETES ANNUAL RETINAL EXAM 02/15/1998 DIABETES MICROALBUMIN ANNUAL SCREEN 02/15/1998 LDL CHOLESTEROL ANNUAL 02/15/1998 DTAP/TDAP/TD VACCINES (1 - Tdap) 02/15/1999 HEPATITIS B VACCINES (1 of 3 - 19+ 3-dose series) 02/15/1999 PAP SMEAR 02/15/2010 BREAST CANCER SCREENING 01/08/2023 01/08/20 22, 12/29/2021 DIABETES HBA1C Q 6 MONTHS 05/28/2024 11/28/2023 INFLUENZA VACCINE (#1) 2024 7, 09/09/2013 COLORECTAL SCREENING 02/15/2025 Colorectal Cancer Screening 02/15/2025 FIT-DNA Q 3 years 02/15/2025 FIT/FOBT Q 1 year 02/15/2025 Flex Sig/CT Colonography Q 5 years 02/15/2025 HPV VACCINES Aged Out No longer eligi ble based on patient's age to complete this topic Procedures Procedure Name Priority Date/Time Associated Diagnosis Comments MAMMO DIAG UNI LEFT 3D JAVAN W OR WO CAD Routine 01/08/2022 from Last 3 Months or Most Recently Relevant to Health Maintenance Results * MAMMO DIAG UNI LEFT 3D JAVAN W OR WO CAD (01/08/2022) Anatomical Region Laterality Modality Breast Left Mammography us Abstract Provider MAMMO ORDERABLES Edited Result - Final from Last 3 Months or Most Recently Relevant to Health Maintenance Insurance BCBS BLUE ACCESS/TRUE BLUE PPO [employer] * Guarantor: [employer] MED [facility] (OM) Account Type Relation to Patient Date of Phone Billing Address Corporate Other [address] [address] * Guarantor: [id number] Account Type Relation to Patient Date of Phone Billing Address Workers Comp Employer * Guarantor: [id number] Account Type Relation to Patient Date of Phone Billing Address Workers Comp Employer Advance Directives For more information, please contact: [phone] * Full Code (Latest Code Status on File) Date Activated Date Inactivated Comments 09/24/2018 4:10 PM 09/25/2018 4:49 PM * Full Code Date Activated Date Inactivated Comments 06/17/2015 7:08 AM 06/17/2015 10:28 AM * Full Code Date Activated Date Inactivated Comments 06/17/2015 6:01 AM 06/17/2015 7:08 AM Care Teams Winter Sports Manager Relationship Specialty [place] [address] [place] [id number] PCP - General Internal Medicine 06/15/15
--- OUTSIDE RECORDS SUMMARY | 2025-02-19 14:52 | XMS_ITS | Clinical Summary ---
Author Organization [facility] Address [address] [place] [place] [address] Care Team Providers Care Care Management Assistant Name Role Phone Db Liz MD Primary Care Provider [phone] Source Comments [facility],non-owned Affiliates and Associated Physician Practices is amultiple site organization consisting of ambulatory clinics and hospital sitesin [place], [place], [place] and [place]. This disclosure is being madepursuant to the Care Everywhere program and may not contain all information available regarding this patient. Last updated 18.[facility] Allergies Active Allergy Reactions Criticality Noted Date Comments Hydrocodone-Acetaminophen Vomiting Low 11/27/2023 Tramadol works best Nsaids Other Low 10/28/2019 Gastric bypass surgery Medications * Be aware that medications may not be up to date on this document. Alwaysverify current medications with the patient. Medication Sig Dispensed Refills Start Date End Date Status lisinopril (Prinivil; Zestril) 10 MG tablet Take 1 (one) tablet by mouth once daily 07/06/2022 Active omeprazole (PriLOSEC) 20 MG capsule Take 1 (one) capsule by mouth daily before breakfast Active vitamin D, ergocalciferol, (Drisdol) 1.25 MG (69292 UT) capsule Take 1 (one) capsule by mouth every 7 days 12 capsule 02/17/2024 Active Active Problems Problem Noted Date Diagnosed Date Iron deficiency anemia 12/13/2023 Complications of gastric bypass surgery 11/27/19 24 S/P gastric bypass 02/03/2019 Encounters Date Type Department Care Team Description 01/19/2025 Refill [facility] [address] [place] [address], [address] [place] [address] Maryse Griffin, TOWER HOIST OPERATOR-STAMP ANALYST Refill Request from Last 3 Months Immunizations Name Administration Dates Next Due Angie Steven primary monovalent 12+ yr 0.5mL ,01/18/2021 Family History Medical History Relation Name Comments Diabetes - Type 2 Father Hypertension Father CAD (Coronary Artery Disease) Maternal Grandmother CVA Maternal Grandmother Diabetes - Type 2 Mother Hypertension Mother Relation Name Status Comments Father Maternal Grandmother Mother Social History Tobacco Use Types Packs/Day Years Used Date Smoking Tobacco: Former Cigarettes 0.5 3 1 998 - 2000 Smokeless Tobacco: Never Tobacco Cessation:Counseling Given: Not Answered Alcohol Use Standard Drinks/Week Comments Yes 0 (1 standard drink = 0.6 oz pur e alcohol) rare AUDIT-C Answer Date Recorded Q1: How often do you have a drink containing alc ohol? Monthly or less 11/27/2023 Q2: How many drinks containi ng alcohol do you have on a typical day when you are drinking? 1 or 2 11/27/2023 Q3: How often do you have si x or more drinks on one occasion? Never 11/27/2023 Sex and Gender Information Value Date Recorded Sex Assigned at Not on file Gender Identity Not on file Sexual Orientation Not on file Last Filed Vital Signs Vital Sign Reading Time Taken Comments Blood Pressure 123/71 01/16/2024 2:29 PM FAN BLADE TRUER Pulse 79 01/16/2024 2:29 PM FAN BLADE TRUER Temperature 36.6 C (97.8 F) 01/16/2024 2:29 PM FAN BLADE TRUER Respiratory Rate 18 01/16/2024 2:29 PM FAN BLADE TRUER Oxygen Saturation 100% 01/16/2024 2:29 PM FAN BLADE TRUER Inhaled Oxygen Concentration - - Weight 91 kg (200 lb 9.6 oz) 12/25/2023 11:58 AM FAN BLADE TRUER Height 160 cm (5' 3 ) 12/25/2023 11:58 AM FAN BLADE TRUER Body Mass Index 35.53 12/25/2023 11:58 AM FAN BLADE TRUER Plan of Treatment Health Maintenance Due Date Last Done Comments COLOGUARD (AGES 45-75) - COLON CA SCREENING 1980 COLON MONITORING 1980 COLONOSCOPY - COLON CA SCREENING 1980 CT COLONOGRAPHY - COLON CA SCREENING 1980 Colorectal Cancer Screening 1980 FIT - COLON CA SCREENING 1980 FLEX SIG - COLON CA SCREENING 1980 LIPID TESTING 1980 PAP SMEAR 1980 HIV SCREENING 02/15/1995 HEPATITIS C SCREENING 02/11/1998 DTAP/TDAP/TD VACCINES (1 - Tdap) 02/15/1999 HEPATITIS B VACCINE (1 of 3 - 19+ 3-dose series) 02/15/1999 MAMMOGRAM 01/08/2024 01/08/2022 COVID-19 VACCINE ( - season) 2024 09/12/2021, 02/17/2021, 01/18/2021 DEPRESSION SCREENING 11/11/2024 INFLUENZA VACCINE (Season Ended) 2025 08/21/2022, 09/21/2017, 09/09/2013 SCREENING FOR DIABETES 02/09/2027 , 11/28/2023, 11/28/2023, Additional history exists ZOSTER VACCINE (1 of 2) 02/15/2030 HIB VACCINE Aged Out No longer eligi ble based on patient's age to complete this topic HPV VACCINE Aged Out No longer eligi ble based on patient's age to complete this topic MENINGOCOCCAL (Group B) VACCINE SHARED DECISION-MAKING Aged Out No longer eligible based on patient's age to complete this topic MENINGOCOCCAL GROUPS A/C/Y/W VACCINE Aged Out No longer eligible based on patient's age to complete this topic PNEUMOCOCCAL VACCINE Aged Out No long er eligible based on patient's age to complete this topic Procedures Procedure Name Priority Date/Time Associated Diagnosis Comments COMPREHENSIVE METABOLIC PANEL Routine 02/10/2024 2:32 PM CDT Bariatric surgery status Morbid obesity Vitamin deficiency Vitamin D deficiency Postsurgical malabsorption from Last 3 Months or Most Recently Relevant to Health Maintenance Results * (ABNORMAL) COMPREHENSIVE METABOLIC PANEL (02/10/2024 2:32 PM CDT) Glucose 80 70 - 99 mg/dL [facility] ACCOUNT BILL BUN 10 6 - 24 mg/dL [facility] ACCOUNT BILL Creatinine 0.65 0.57 - 1.00 mg/dL [facility] ACCOUNT BILL eGFR by CKD-EPI 112 >59 mL/min/1.7 3 [facility] ACCOUNT BILL BUN/Creatinine Ratio 15 9 - 23 [facility] ACCOUNT BILL Sodium 141 134 - 144 mmol/L [facility] ACCOUNT BILL Potassium 4.3 3.5 - 5.2 mmol/L [facility] ACCOUNT BILL Chloride 107(H) 96 - 106 mmol/L [facility] ACCOUNT BILL CO2 20 20 - 29 mmol/L [facility] ACCOUNT BILL Calcium 9.0 8.7 - 10.2 mg/dL [facility] ACCOUNT BILL Protein Total 6.4 6.0 - 8.5 g/dL [facility] ACCOUNT BILL Albumin 4.2 3.9 - 4.9 g/dL [facility] ACCOUNT BILL Globulin Total 2.2 1.5 - 4.5 g/dL [facility] ACCOUNT BILL Albumin/Globulin Ratio 1.9 1.2 - 2.2 [facility] ACCOUNT BILL Bilirubin Total 0.3 0.0 - 1.2 mg/dL [facility] ACCOUNT BILL Alkaline Phosphatase 69 44 - 121 IU/L [facility] ACCOUNT BILL AST 15 0 - 40 IU/L [facility] ACCOUNT BILL ALT 14 0 - 32 IU/L [facility] ACCOUNT BILL Blood BLOOD SPECIMEN / Unknown 02/10/2024 2:32 PM CDT 02/10/2024 Narrative Resulting Agency Comment Lab Testing performed at: [facility] [address] [facility] [id number] Maryse [facility] - CHEMIS TRY ORDERABLES [facility] ACCOUNT BILL [address] [place] [address] from Last 3 Months or Most Recently Relevant to Health Maintenance Advance Directives * Full Code (Latest Code Status on File) Date Activated Date Inactivated Comments 11/27/2023 11:07 AM 11/28/2023 7:20 PM * Full Code Date Activated Date Inactivated Comments 02/03/2019 2:42 PM 02/05/2019 1:48 PM Care Teams Care Management Assistant Relationship Specialty Start Date End Date Db Liz MD PCP - General Internal Medicine 07/17/18
--- OUTSIDE RECORDS SUMMARY | 2025-02-19 14:52 | XMS_ITS | Data Portability ---
Author Organization [facility] Address [address] [place] [address] Care Team Providers Care Displayer Merchandise Name Role Phone RYNE LIZ Primary Care Provider Unavailabl e Assessment Encounter Date Assessment Date Assessment LastModified by Organization Details LastModified Time 02/10/2024 02/10/2024 Will continue with current therapy I will see her back in 6 months she will let me know how she responds to the iron. 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 Diagnosis have been discussed continue current therapy blood work reviewed follow up in 4-6 months [email or web address] Not available 11/12/2024 18:30:27 Plan of Treatment Reminders Order Date Submit Date Provider Last Modified By Organization Details Last Modified Time Details Appointments ANY 15 2024 02:30P Jaqueline Liz MD Not available Not available Not available Lab HbA1c (hemoglob in A1c), blood 2023 024 VITALIY [facility], [address] [address], [place], [address], 09/14/2024 17:25:23 T3, free, serum or plasma 2023 024 [email or web address] [facility], [address], [place], [address], 09/21/2024 12:19:49 CMP, serum or plasma 2023 024 VITALIY [facility], [address], [place], [address], 09/12/2024 13:05:30 CBC w/ auto diff 2023 024 [place] [facility], [address], [place], [address], 09/14/2024 17:25:23 lipid panel, serum 2023 024 [email or web address] [facility], [address], [place], [address], 09/14/2024 17:25:23 TSH + free T4, serum 2023 024 [place] [facility], [address], [place], [address], 09/14/2024 17:25:23 Referral None recorded. Procedures None recorded. Surgeries None recorded. Imaging None recorded. Medication Orders Mounjaro 15 mg/0.5 mL subcutane ous pen injector [email or web address] [facility], [address] [place] [address], [address], 10/15/2024 11:42:12 lisinopri l 20 mg tablet [email or web address] [facility], [address] [place] [address], [id number], 08/31/2024 18:22:10 Zoloft 25 mg tablet 2023 024 finesse [facility] #[id number], [address] [place], [address], 01/20/2025 09:20:57 Patient TargetsNo targets recorded. Patient Instructions Encounter Date Encounter Id Patient Instructions Last Modified By Organization Details Last Modified Time 08/31/2024 [id number] A healthy lifestyle: care instructions Not available 08/31/2024 18:22:10 10/12/2024 [id number] A healthy lifestyle: care instructions [email or web address] Not available 10/12/2024 16:05:36 Reason for Referral None Reported. Results Created Date Observation Date Name Description Value Unit Range Abnormal Flag Note LastModifiedBy Organization Detail LastModifiedTime 12/30/1912/28/2024 XR, knee No observ ation record ed. [email or web address] Not Available 2024 23:41:19 Result Notes None recorded. Problems Name Problem SNOMED Code Status Onset Date Resolution Date Notes Provider Name and Address Organization Details Recorded Time Essential hypertension 44437539 Active 2023 Ryne Liz MD Attn: Jhony trevino,[address] [place], [address], [place] [facility] 4 13:39:42 Iron deficiency anemia 07307038 Active 2023 Ryne Liz MD Attn: Jhony trevino,[address] [place], [address], [place] [facility] 4 13:39:44 History of bariatric surgical procedure 342151542 Active 2023 Ryne Liz MD Attn: Jhony trevino,[address] [place], [address], [place] [facility] 4 13:39:45 Type 2 diabetes mellitus 22654946 Active 2023 Ryne Liz MD Attn: Jhony trevino,[address] [facility], [place], [address], [place] [facility] 4 13:39:46 Hyperlipidemia 74834739 Active 2023 Ryne Liz MD Attn: Jhony trevino,[address] [facility], [place], [address], [place] [facility] 13:39:57 Anxiety 59148314 Active 2024 Ryne Liz MD Attn: Jhony trevino,[address] [facility], [place], [address], [facility] 18:29:51 Problem Notes None recorded. Procedures Surgical History Date Name Laterality Status Provider Name and Address Organization Details Recorded Time Appendectomy completed Deneen Kennedy [facility] 02/10/2024 14:25:35 Gastric Bypass completed Deneen Kennedy MA [facility] 02/10/2024 14:25:44 ligation of bilateral fallopian tubes completed Deneen Kennedy [facility] 02/10/2024 14:25:58 partial hysterectomy completed Deneen Kennedy MA [facility] 02/10/2024 14:26:12 Imaging Results Imaging Date Name Status LastModified by Organiz ation Details LastModified Time 12/28/2024 XR, knee completed [email or web address] Information no t available 12/31/2024 23:41:19 Procedure Notes None recorded. Medical Equipment None Reported. Allergies No known drug allergies Medications Name Sig Start Date Stop Date Status Note LastModified by Organization Details LastModified Time Prescript ion - Prior Authoriza tion Request active Not Available Not Available Not Available BD Luer-Rebeca Syringe 3 mL 23 x 1 USE 3 SYRINGES ONCE DAILY FOR 3 DAYS active Not Available Not Available No t Available tizanidin e 4 mg tablet TAKE 1 TABLET BY MOUTH EVERYDAY AT BEDTIME 02/09 completed Not Available Not Available Not Available lisinopri l 20 mg tablet TAKE 1 TABLET DAILY active Not Available Not Available No t Available oxycodone 5 mg/5 mL oral solution 02/09 completed Not Available Not Available Not Available tramadol 50 mg tablet TAKE 1 TABLET BY MOUTH EVERY 6 HOURS NEEDED FOR PAIN (1-2 TABLETS PER DOSE) 02/09 completed Not Available Not Available Not Available benzonata te 100 mg capsule TAKE 1 CAPSULE BY MOUTH THREE TIMES A DAY FOR 7 DAYS 02/09 completed Not Available Not Available Not Available cyanocoba tito (vit B-12) 1,000 mcg/mL injection solution INJECT 1 ML INTO MUSCLE ONCE DAILY FOR 3 DAYS 08/31 completed Not Available Not Available Not Available lisinopri l 10 mg tablet Take 1 tablet every day by oral route. 08/31 completed changed to 20mg by Dr Liz at visit 08/31/24 Not Available Not Available Not Available sertralin e 25 mg tablet TAKE 1 TABLET BY MOUTH EVERY DAY active Not Available Not Available No t Available omeprazol e 20 mg capsule,d elayed release TAKE 1 CAPSULE BY MOUTH EVERY DAY active Not Available Not Available No t Available ergocalci ferol (vitamin D2) 1,250 mcg (50,000 unit) capsule TAKE 1 CAPSULE BY MOUTH EVERY 7 DAYS 08/31 completed Not Available Not Available Not Available ondansetr on 4 mg disintegr ating tablet DISSOLVE 1 TABLET ON THE TONGUE EVERY 6 HOURS NEEDED FOR NAUSEA AND VOMITING 02/09 completed Not Available Not Available Not Available sertralin e 50 mg tablet TAKE 1 TABLET DAILY 2024 active Not Available Not Available Not Avai lable amoxicill in 875 mg-potass ium clavulana te 125 mg tablet TAKE 1 TABLET BY MOUTH EVERY 12 HOURS 02/09 completed Not Available Not Available Not Available Flowflex COVID-19 Antigen Home Test kit 02/09 completed Not Available Not Available Not Available Ozempic 2 mg/dose (8 mg/3 mL) subcutane ous pen injector 02/09 completed Not Available Not Available Not Available Mounjaro 7.5 mg/0.5 mL subcutane ous pen injector INJECT 7.5 MG UNDER THE SKIN EVERY WEEK 10/05 completed pt is taking 12.5mg now. Not Available Not Available Not Available Mounjaro 5 mg/0.5 mL subcutane ous pen injector INJECT 5MG SUBCUTAN EOUSLY WEEKLY FOR 4 WEEKS 02/09 completed Not Available Not Available Not Available Mounjaro 15 mg/0.5 mL subcutane ous pen injector 15mg subcutan eously every week 2023 active Pt notified . Not Available Not Available Not Available Mounjaro 10 mg/0.5 mL subcutane ous pen injector inject 10mg weekly for 4wks then go to 12.5mg weekly for 4wks 10/05 completed pt is taking 12.5mg now. Not Available Not Available Not Available Mounjaro 12.5 mg/0.5 mL subcutane ous pen injector INJECT 12.5MG SUBCUTAN EOUSLY WEEKLY active Not Available Not Available No t Available Mounjaro 2.5 mg/0.5 mL subcutane ous pen injector INJECT 2.5MG WEEKLY FOR 4WKS THEN GO TO 5MG WEEKLY FOR 4WKS 02/09 completed Not Available Not Available Not Available Vitals Date Recorded Body weight Body mass index (BMI) Body height Oxygen saturation Oxygen saturation in Arterial blood by Pulse oximetry Heart rate Systolic blood pressure Diastolic blood pressure Provider Name and Address Organization Details Last Updated DateTime 4 00550.4 7 g 35.4 kg/m2 160.02 cm 98 % 98 % 80 /min 134 mm[Hg] 84 mm[Hg] Deneen Kennedy MA [facility] 4 14:31:33 Date Recorded Body height Body mass index (BMI) Body weight Heart rate Oxygen saturation Oxygen saturation in Arterial blood by Pulse oximetry Systolic blood pressure Diastolic blood pressure Provider Name and Address Organization Details Last Updated DateTime 4 160.02 cm 35.6 kg/m2 31602.0 7 g 72 /min 97 % 97 % 150 mm[Hg] 92 mm[Hg] Shila Fischer MA [facility] 4 15:11:33 Date Recorded Body height Body mass index (BMI) Body weight Heart rate Oxygen saturation Oxygen saturation in Arterial blood by Pulse oximetry Systolic blood pressure Diastolic blood pressure Provider Name and Address Organization Details Last Updated DateTime 4 160.02 cm 35.9 kg/m2 10047.8 9 g 77 /min 98 % 98 % 132 mm[Hg] 70 mm[Hg] Judi Goins MA [facility] 4 15:36:11 Social History Question Answer Notes LastModified by Organizat ion Details LastModified Time Tobacco Smoking Status Former Smoker Deneen Kennedy MA [facility], [facility] 02/10/2024 14:24:43 Do You Have An Advance Directive? No Information not available 02/10/2024 What Is Your Level Of Alcohol Consumption? Occasional Information not available 02/10/2024 Are You Blind Or Do You Have Difficulty Seeing? No Information not available 02/10/2024 What Is Your Level Of Caffeine Consumption? Moderate Information not available 02/10/2024 In The 14 Days Before Symptom Onset, Have You Had Close Contact With A Laboratory-confir med COVID-19 While That Case Was Ill? No Information not available 08/31/2024 In The 14 Days Before Symptom Onset, Have You Had Close Contact With A Person Who Is Under Investigation For COVID-19 While That Person Was Ill? No Information not available 08/31/2024 Have You Been To An Area Known To Be High Risk For COVID-19? No Information not available 08/31/2024 Are You Currently Employed? Yes Information not available 08/31/2024 Are You Deaf Or Do You Have Serious Difficulty Hearing? No Information not available 02/10/2024 What Type Of Diet Are You Following? REGULAR Information not available 02/10/2024 What Was The Date Of Your Most Recent Tobacco Screening? 10/12/2024 [email or web address] Information not available 10/12/2024 What Is Your Current Pack Years? 10-19packyears Information not available 02/10/2024 What Is Your Relationship Status? Information not available 02/10/2024 Do You Use Your Seat Belt Or Car Seat Routinely? Yes Information not available 02/10/2024 Do You Have Smoke And Carbon Monoxide Detectors In Your Home? Yes Information not available 02/10/2024 How Much Tobacco Do You Smoke? 1 PPW Information not available 02/10/2024 Do You Feel Stressed (tense, Restless, Nervous, Or Anxious, Or Unable To Sleep At Night)? [id number] Information not available 02/10/2024 Do You Use Any Illicit Or Recreational Drugs? No Information not available 02/10/2024 Do You Use Sunscreen Routinely? No Information not available 02/10/2024 Has Tobacco Cessation Counseling Been Provided? No Information not available 02/10/2024 How Many Years Have You Smoked Tobacco? 5 Information not available 02/10/2024 Do You Or Have You Ever Used Any Other Forms Of Tobacco Or Nicotine? No Information not available 02/10/2024 Sex: Female Functional Status Question Answer Note LastModified by Organizat ion Details LastModified Time Are you able to care for yourself? Yes Information not available 02/10/2024 What is your exercise level? Occasional Information not available 02/10/2024 Mental Status None recorded. Family History Relationship Description Onset Age of this Age Resolved Age Notes LastModified by Organization Details LastModified Time Brother Depressive disorder [email or web address] Not available 11/2023 14:23:08 Mother Diabetes mellitus [email or web address] Not available 11/2023 14:23:23 Mother Disorder of thyroid gland [email or web address] Not available 11/2023 14:23:29 Mother Hypertensive disorder [email or web address] Not available 11/2023 14:23:48 Father Diabetes mellitus [email or web address] Not available 11/2023 14:23:23 Father Heart disease [email or web address] Not available 11/2023 14:23:37 Father Hypertensive disorder [email or web address] Not available 11/2023 14:23:48 Father Hypercholest erolemia [email or web address] Not available 11/2023 14:23:54 Medical History Condition Response Coronary Artery Disease N Other N Atrial Fibrillation N High Blood Pressure Y Depression N COPD N Blood Clots N Anxiety Disorder N Muscle, Joint, or Bone Problems N Acid Reflux (GERD) N Cancer N Stroke N High Cholesterol Y Liver Disease N Headaches N Kidney or Bladder Problems N Thyroid Problems N GI Problems N Have you had a mammogram in the last yea r? Y Skin Problems N Anemia Y Heart Attack (AR) N Diabetes Y Seizures/Epilepsy N Have you had a colonoscopy in the last 1 0 years? N Asthma N Allergies N Hepatitis N Heart Failure N Osteoporosis N Gynecological HistoryNo gynecological history recorded. Obstetrics History GPAL:G 0 P 0 0 0 0 Immunizations Vaccine Type Date Status Note Provider Nam e and Address Organization Details Recorded Time Influenza, split virus, quadrivalent, preservative 2 completed Nilay Maldonado [place], [place] [facility] 04/10/2024 16:42:31 Influenza, split virus, quadrivalent, preservative 7 completed ROBB Saunders, [place] [facility] 04/10/2024 16:42:31 Influenza, MDCK, quadrivalent, PF 3 completed Nilay Maldonado [place], [place] [facility] 04/10/2024 16:42:31 COVID-19, mRNA, LNP-S, PF, 100 mcg/0.5mL dose or 50 mcg/0.25mL dose 1 completed ROBB [place], [place] [facility] 04/10/2024 16:42:31 COVID-19, mRNA, LNP-S, PF, 100 mcg/0.5mL dose or 50 mcg/0.25mL dose 1 completed ROBB [place] [facility] 04/10/2024 16:42:31 COVID-19, mRNA, LNP-S, PF, 30 mcg/0.3 mL dose 1 completed ROBB [place] [facility] 04/10/2024 16:42:31 COVID-19, mRNA, LNP-S, PF, 30 mcg/0.3 mL dose 1 completed ROBB [place]undres[place] [facility] 04/10/2024 16:42:31 COVID-19, mRNA, LNP-S, bivalent, PF, 30 mcg/0.3 mL dose 2 completed ROBB [place] [facility] 04/10/2024 16:42:31 COVID-19, mRNA, LNP-S, PF, verna-sucrose, 30 mcg/0.3 mL 3 completed Nilay Maldonado [place] [facility] 04/10/2024 16:42:31 Influenza, split virus, quadrivalent, PF 0 completed ROBB [place]unders[place] [facility] 04/10/2024 16:42:31 Past Encounters Encounter ID Performer Location Encounter Start Date Encounter Closed Date Diagnosis/Indication Diagnosis SNOMED-CT Code Diagnosis ICD10 Code Diagnosis Note [id number] Ryne Liz MD [facility] - [facility] Rodriguez [address] [place] [address] 02/10/2024 14:10:14 02/10/2024 15:18:21 Essential hypertension 09918302 I10 Iron defic iency anemia 20173572 D50.9 History of bariatric surgical procedure 894797217 Z98.84 Type 2 andi betes mellitus 00424013 E11.9 Hyperlipidemia 84373619 E78.5 [id number] Ryne Liz MD [facility] [employer] [address] [place] [address] 08/31/2024 14:54:34 08/31/2024 15:52:05 Obesity 134259133 E66.9 Anxiety 41332210 F41.9 Essential hypertension 24906806 I10 Prediabetes 308515217 R7 3.03 Hyperlipidemia 79768640 E78.5 [id number] Ryne Liz MD [facility] [employer] [address] [place] [address] 10/12/2024 15:22:15 10/12/2024 16:02:00 Obesity 597921190 E66.9 Type 2 andi betes mellitus 69199699 E11.9 Essential hypertension 12338012 I10 Hyperlipidemia 47103658 E78.5 Health Concerns Section Related Observation LastModified by Organization Detai ls LastModified Time None Recorded Concern Status LastModified by Organization Details LastModified Time None Recorded Advance Directives Directive N: Payers Encounter Date Sequence Insurance Name Policy Number Policy Huber Covered Member ID Huber Member ID Guarantor Name 02/10/2024 1 [place] [id number] Regulo Cox [id number] Melina Cox 08/31/2024 1 [place] [id number] Regulo Cxo [id number] Melina Cox 10/12/2024 1 [place] [id number] Regulo Cox [id number] Melina Cox Notes Date Note Type Note Provider Name and Address Organization Details Recorded Time 02/10/2024 text/html Intussusception abdominal surgery stable bariatric surgery found to have severe iron deficiency anemia getting iron injections and she was symptomatic from that. Her diabetes and high cholesterol have been better since her bariatric surgery she is maintained on lisinopril she continues to take a GLP-1 Ryne Liz MD Attn: Accounting,[address] [facility], [place], [address], [facility] 02/11/2024 13:51:07 08/31/2024 text/html hypertension no headache or dizzinessanxiety is bothering bit no depression no SI SIdiabetes she needs an A1c Ryne Liz MD Attn: Accounting,[address] [facility], [place], [address], [facility] 09/12/2024 22:48:41 10/12/2024 text/html hypertension no headache no dizziness no shortness a breath 132/70. Obesity doing well weight loss on the GLP 1 no side effects hyperlipidemia blood work reviewed. Anxiety has been doing well Ryne Liz MD Attn: Accounting,[address] [facility], [place], [address], [facility] 11/12/2024 18:30:44 OBGyn Episode No OBEpisode recorded.
== END 2025-02-19 14:50 | disposition home or self-care (01) ==
PROVIDERS: PCP Internal Medicine; Visit Provider Obstetrics & Gynecology
DX: Z12.31 Encounter for screening mammogram for malignant neoplasm of breast (principal)
CPT/HCPCS: 77063; 77067

== ENCOUNTER 2025-05-15 09:02 | Outpatient (CLI) | payer BC, SELFPAY ==
--- OUTSIDE RECORDS SUMMARY | 2025-05-15 09:07 | XMS_ITS | Clinical Summary ---
Author Organization [facility] Address [facility] [place] [address] Care Team Providers Care Family Protection Specialist Name Role Phone Unavailable Primary Care Provider [...] 5 Years) and At-Risk Patients (6 to 49 Years) Aged Out No longer eligible b ased on patient's age to complete this topic RSV Immunizations Under 20 Months Aged Out No longer eligible based on patient's age to complete this topic
--- OUTSIDE RECORDS SUMMARY | 2025-05-15 09:08 | XMS_ITS | Clinical Summary ---
Author Organization [facility] Address [address] [facility] [address] [address] [place] [place] [address] Phone Care Team Providers Care Stand Up Comedian Name Role Phone Db Liz MD Primary Care Provider [phone] Allergies Active Allergy Reactions Criticality Noted Date [...] 11:18 AM CDT Height 160 cm (5' 3) 03/02/2022 11:18 AM CDT Body Mass Index 40.33 03/02/2022 11:18 AM CDT Plan of Treatment Health Maintenance Due Date Last Done Comments DIABETES ANNUAL FOOT EXAM 02/15/1998 DIABETES ANNUAL RETINAL EXAM 02/15/1998 DIABETES MICROALBUMIN ANNUAL SCREEN 02/15/1998 LDL CHOLESTEROL ANNUAL 02/15/1998 DTAP/TDAP/TD VACCINES (1 - Tdap) 02/15/1999 HEPATITIS B VACCINES (1 of 3 - 19+ 3-dose series) 02/15/1999 BREAST CANCER SCREENING 01/08/2023 01/08/20 22, 12/29/2021 DIABETES HBA1C Q 6 MONTHS 05/28/2024 11/28/2023 COLORECTAL SCREENING 02/15/2025 Colorectal Cancer Screening 02/15/2025 FIT-DNA Q 3 years 02/15/2025 FIT/FOBT Q 1 year 02/15/2025 Flex Sig/CT Colonography Q 5 years 02/15/2025 INFLUENZA VACCINE (#1) 2025 7, 09/09/2013 HPV VACCINES Aged Out No longer eligi [...] [employer] * Guarantor: [facility] [facility] MED [facility] ([facility]) Account Type Relation to Patient Date of Phone Billing Address Corporate Other [address] [facility] [address] [address] * Guarantor: [id number] Account Type Relation to Patient Date of Phone Billing Address Workers Comp Employer * Guarantor: [id number] Account Type Relation to Patient Date of Phone Billing Address Workers Comp Employer Advance Directives For more information, please contact: [phone] * Full Code (Latest Code Status on File) Date Activated Date Inactivated Comments 09/24/2018 4:10 PM 09/25/2018 4:49 PM * Full Code Date Activated Date Inactivated Comments 06/17/2015 7:08 AM 06/17/2015 10:28 AM * Full Code Date Activated Date Inactivated Comments 06/17/2015 6:01 AM 06/17/2015 7:08 AM Care Teams Stand Up Comedian Relationship Specialty Start Date End Date Db Liz MD [address] [place] [address] PCP - General Internal Medicine 06/15/15
--- OUTSIDE RECORDS SUMMARY | 2025-05-15 09:08 | XMS_ITS | Data Portability ---
Author Organization [facility] Nafisa [facility] Address [address] [place] [address] Care Team Providers Care [employer] Operator Name Role Phone RYNE LIZ Primary Care Provider Unavailabl e Assessment Encounter Date Assessment Date Assessment LastModified by Organization Details LastModified Time 02/10/2024 02/10/2024 Will continue with current therapy I will see her back in 6 months she will let me know how she responds to the iron. Hypertension lisinopril obesity says that she is taking the injectable GLP-1 without any side effects [email or web address] Not available 02/11/2024 13:50:56 08/31/2024 08/31/2024 obtain records from ict programmer for Pap smear increase lisinopril to 20 mg a day healthy lifestyle care instructions blood work continue with her GLP 1 see me in 6 weeks [email or web address] Not available 09/12/2024 22:48:12 10/12/2024 10/12/2024 her blood work has been reviewed we will continue with her GLP 1 agent. Diagnosis have been discussed continue current therapy blood work reviewed follow up in 4-6 months [email or web address] Not available 11/12/2024 18:30:27 05/10/2025 05/10/2025 We will continue current therapy healthy lifestyle care instructions blood work has been ordered to include urinary microalbumin start rosuvastatin 5 mg daily see me back in [address] Woodward her review of her Pap smears get set up with diabetic eye exam and diabetic foot exam [email or web address] Not available 05/10/2025 21:26:25 Plan of Treatment Reminders Order Date Submit Date Provider Last Modified By Organization Details Last Modified Time Details Appointments ANY 15 2024 10:00A Jaqueline Liz MD Not available Not available Not available Lab HbA1c (hemoglob in A1c), blood 2024 025 [facility], [address], [place], [address], 05/10/2025 16:53:08 albumin/c reatinine , mass ratio, urine 2024 025 [facility], [address], [place], [address], 05/10/2025 16:53:08 lipid panel, serum 2024 025 jun [facility], [address], [place], [address], 05/10/2025 16:53:08 CMP, serum or plasma 2024 025 jun Yuen, [address], [place], [address], 05/10/2025 16:53:08 CBC w/ auto diff 2024 025 [email or web address] [facility], [address], [place], [address], 05/10/2025 16:53:08 HbA1c (hemoglob in A1c), blood 2023 024 V[facility], [address], [place], [address], 09/14/2024 17:25:23 T3, free, serum or plasma 2023 024 [email or web address] [facility], [address], [place], [address], 09/21/2024 12:19:49 CMP, serum or plasma 2023 024 VITAL[facility]Y [facility], [address], [place], [address], 09/12/2024 13:05:30 CBC w/ auto diff 2023 024 [place], [address], [place], [address], 09/14/2024 17:25:23 lipid panel, serum 2023 024 [place], [address], [place], [address], 09/14/2024 17:25:23 TSH + free T4, serum 2023 024 [facility], [address], [place], [address], 09/14/2024 17:25:23 Referral None recorded. Procedures None recorded. Surgeries None recorded. Imaging None recorded. Medication Orders rosuvasta tin 5 mg tablet 2024 025 [email or web address] [facility], [address] [place] [address], [id number], 05/10/2025 16:53:08 Mounjaro 15 mg/0.5 mL subcutane ous pen injector 2023 024 [email or web address] [facility], [address] [place] [address], [id number], 10/15/2024 11:42:12 lisinopri l 20 mg tablet 2023 024 [email or web address] [facility], [address] [place] [address], [id number], 08/31/2024 18:22:10 Zoloft 25 mg tablet 2023 024 [facility]se [facility] #[id number], [address] [place], [address], 01/20/2025 09:20:57 Patient TargetsNo targets recorded. Patient Instructions Encounter Date Encounter Id Patient Instructions Last Modified By Organization Details Last Modified Time 08/31/2024 [id number] A healthy lifestyle: care instructions [email or web address] Not available 08/31/2024 18:22:10 10/12/2024 [id number] A healthy lifestyle: care instructions [email or web address] Not available 10/12/2024 16:05:36 05/10/2025 [id number] A healthy lifestyle: care instructions [email or web address] Not available 05/10/2025 16:53:08 Reason for Referral None Reported. Results Created Date Observation Date Name Description Value Unit Range Abnormal Flag Note LastModifiedBy Organization Detail LastModifiedTime 02/10/20 24 02/11/2024 Compr ehens aravind metab olic 2000 panel - Serum or Plasm a glucose [mass/volume ] in serum or plasma 80 mg/dL low: 70mg/d Lhigh: 99mg/d L Gluco se 80 70 - 99 mg/dL [facility] RP ACCOU NT BILL Not Available Not Available 02/25/2025 10:43:09 02/10/20 24 02/11/2024 Compr ehens aravind metab olic 2000 panel - Serum or Plasm a BUN 10 mg/dL low: 6mg/dL high: 24mg/d L BUN 10 6 - 24 mg/dL [facility] ACCOU NT BILL Not Available Not Available 02/25/2025 10:43:09 02/10/20 24 02/11/2024 Compr ehens aravind metab olic 2000 panel - Serum or Plasm a creatinine [mass/volume ] in serum or plasma 0.65 mg/dL low: 0.57mg /dLhig h: 1mg/dL Creat inine 0.65 0.57 - 1.00 mg/dL [facility] ACCOU NT BILL Not Available Not Available 02/25/2025 10:43:09 02/10/20 24 02/11/2024 Compr ehens aravind metab olic 2000 panel - Serum or Plasm a glomerular filtration rate [volume rate/area] in serum, plasma or blood by creatinine-b ased formula (CKD-epi)/1. 73 sq M 112 mL/mi n/1.7 3 low: 59mL/m in/1.7 3 eGFR by CKD-E PI 112 >59 mL/mi n/1.7 3 [facility] ACCOU NT BILL Not Available Not Available 02/25/2025 10:43:09 02/10/20 24 02/11/2024 Compr ehens aravind metab olic 2000 panel - Serum or Plasm a BUN/creatini ne ratio 15 low: 9high: 23 BUN/C reati nine Ratio 15 9 - 23 [facility] ACCOU NT BILL Not Available Not Available 02/25/2025 10:43:09 02/10/20 24 02/11/2024 Compr ehens aravind metab olic 2000 panel - Serum or Plasm a sodium 141 mmol/ L low: 134mmo l/Lhig h: 144mmo l/L Sodiu m 141 134 - 144 mmol/ L [facility] ACCOU NT BILL Not Available Not Available 02/25/2025 10:43:09 02/10/20 24 02/11/2024 Compr ehens aravind metab olic 2000 panel - Serum or Plasm a potassium 4.3 mmol/ L low: 3.5mmo l/Lhig h: 5.2mmo l/L Potas sium 4.3 3.5 - 5.2 mmol/ L [facility] ACCOU NT BILL Not Available Not Available 02/25/2025 10:43:09 02/10/20 24 02/11/2024 Compr ehens aravind metab olic 2000 panel - Serum or Plasm a chloride 107 mmol/ L low: 96mmol /Lhigh : 106mmo l/L high Chlor luz maria 107 (H) 96 - 106 mmol/ L [facility] ACCOU NT BILL Not Available Not Available 02/25/2025 10:43:09 02/10/20 24 02/11/2024 Compr ehens aravind metab olic 2000 panel - Serum or Plasm a CO2 20 mmol/ L low: 20mmol /Lhigh : 29mmol /L CO2 20 20 - 29 mmol/ L [facility] ACCOU NT BILL Not Available Not Available 02/25/2025 10:43:09 02/10/20 24 02/11/2024 Compr ehens aravind metab olic 2000 panel - Serum or Plasm a calcium 9 mg/dL low: 8.7mg/ dLhigh : 10.2mg /dL Calci um 9.0 8.7 - 10.2 mg/dL [facility] ACCOU NT BILL Not Available Not Available 02/25/2025 10:43:09 02/10/20 24 02/11/2024 Compr ehens aravind metab olic 2000 panel - Serum or Plasm a protein total 6.4 g/dL low: 6g/dLh igh: 8.5g/d L Prote in Total 6.4 6.0 - 8.5 g/dL [facility] ACCOU NT BILL Not Available Not Available 02/25/2025 10:43:09 02/10/20 24 02/11/2024 Compr ehens aravind metab olic 2000 panel - Serum or Plasm a albumin 4.2 g/dL low: 3.9g/d Lhigh: 4.9g/d L Album in 4.2 3.9 - 4.9 g/dL [facility] ACCOU NT BILL Not Available Not Available 02/25/2025 10:43:09 02/10/20 24 02/11/2024 Compr ehens aravind metab olic 2000 panel - Serum or Plasm a globulin total 2.2 g/dL low: 1.5g/d Lhigh: 4.5g/d L Globu ambika Total 2.2 1.5 - 4.5 g/dL [facility] ACCOU NT BILL Not Available Not Available 02/25/2025 10:43:09 02/10/20 24 02/11/2024 Compr ehens aravind metab olic 2000 panel - Serum or Plasm a albumin/glob ulin ratio 1.9 low: 1.2hig h: 2.2 Album in/Gl obuli n Ratio 1.9 1.2 - 2.2 [facility] ACCOU NT BILL Not Available Not Available 02/25/2025 10:43:09 02/10/20 24 02/11/2024 Compr ehens aravind metab olic 2000 panel - Serum or Plasm a bilirubin total 0.3 mg/dL low: 0mg/dL high: 1.2mg/ dL Bilir ubin Total 0.3 0.0 - 1.2 mg/dL [facility] ACCOU NT BILL Not Available Not Available 02/25/2025 10:43:09 02/10/20 24 02/11/2024 Compr ehens aravind metab olic 2000 panel - Serum or Plasm a alkaline phosphatase 69 text: 44 - 121 IU/L Alkal ine Phosp hatas e 69 44 - 121 IU/L [facility] ACCOU NT BILL Not Available Not Available 02/25/2025 10:43:09 02/10/20 24 02/11/2024 Compr ehens aravind metab olic 2000 panel - Serum or Plasm a AST 15 text: 0 - 40 IU/L AST 15 0 - 40 IU/L [facility] ACCOU NT BILL Not Available Not Available 02/25/2025 10:43:09 02/10/20 24 02/11/2024 Compr ehens aravind metab olic 2000 panel - Serum or Plasm a ALT 14 text: 0 - 32 IU/L ALT 14 0 - 32 IU/L [facility] ACCOU NT BILL Not Available Not Available 02/25/2025 10:43:09 02/10/20 24 02/11/2024 Compr ehens aravind metab olic 2000 panel - Serum or Plasm a Unknown Analyte Lab Testin g perfor med at: [facility] [address] [facility] [id number] Lab Testi ng perfo rmed at: [facility] [address] [place] [address] [facility] [address] Not Available Not Available 02/25/2025 10:43:09 02/10/20 24 02/11/2024 Compr ehens aravind metab olic 2000 panel - Serum or Plasm a interpretati on and review of laboratory results Abnorm al Not Available Not Available 10:43:09 12/30/19 25 12/28/2024 XR, knee No observ ation record ed. Not Available 2024 23:41:19 02/20/20 25 02/19/2025 MAMMO , scree mateus, digit al, bilat eral No observ ation record ed. [facility] [address] [place], [address], 02/22/2025 10:50:30 Result Notes None recorded. Problems Name Problem SNOMED Code Status Onset Date Resolution Date Notes Provider Name and Address Organization Details Recorded Time Essential hypertension 99617669 Active 2023 Ryne Liz MD Attn: Jhony g,[address] [facility], [place], [address], [place] [facility] 4 13:39:42 Iron deficiency anemia 05786558 Active 2023 Ryne Liz MD Attn: Nataliecarlie trevino,[address] [facility], [place], [address], [place] [facility] 4 13:39:44 History of bariatric surgical procedure 803560860 Active 2023 Ryne Liz MD Attn: Jhony uriel,[address] [facility], [place], [address], [place] [facility] 4 13:39:45 Type 2 diabetes mellitus 10761666 Active 2023 Ryne Liz MD Attn: Jhony uriel,[address] [facility], [place], [address], [place] [facility] 4 13:39:46 Hyperlipidemia 95668045 Active 2023 Ryne Liz MD Attn: Jhony uriel,[address] [facility], [place], [address], [place] [facility] 4 13:39:57 Anxiety 83374219 Active 2024 Ryne Liz MD Attn: Nataliecarlie trevino,[address] [facility], [place], [address], [place] [facility] 5 18:29:51 Problem Notes None recorded. Procedures Surgical History Date Name Laterality Status Provider Name and Address Organization Details Recorded Time Appendectomy completed Deneen Kennedy MA [facility] 02/10/2024 14:25:35 Gastric Bypass completed Deneen Kennedy MA [facility] 02/10/2024 14:25:44 ligation of bilateral fallopian tubes completed Deneen Kennedy MA [facility] 02/10/2024 14:25:58 partial hysterectomy completed Deneen Kennedy MA [facility] 02/10/2024 14:26:12 Imaging Results None recorded. Procedure Notes None recorded. Medical Equipment None [...] 20 mg tablet TAKE 1 TABLET DAILY 2024 active Not Available Not Available Not Avai lable oxycodone 5 mg/5 mL oral solution 02/09 [...] TAKE 1 TABLET BY MOUTH EVERY DAY 01/20 completed see pt case she has been changed to 50mg Not Available Not Available Not Available omeprazol e 20 mg capsule,d elayed [...] completed Not Available Not Available Not Available rosuvasta tin 5 mg tablet Take 1 tablet every day by oral route. 2024 active Not Available Not Available Not Melinda wang [employer] COVID-19 Antigen Home Test kit 02/09 [...] 15 mg/0.5 mL subcutane ous pen injector INJECT 15 MG UNDER THE SKIN EVERY WEEK 2024 active Not Available Not Available Not Melinda wang Mounjaro 10 mg/0.5 mL subcutane ous pen [...] blood by Pulse oximetry Heart rate Systolic And Diastolic Provider Name and Address Organization Details Last Updated DateTime 4 35848.4 7 g 35.4 kg/m2 160.02 cm 98 % 98 % 80 /min 134/84 mm[Hg] Deneen Kennedy [place] [facility] 4 14:31:33 Date Recorded Body height Body mass index (BMI) Body weight Heart rate Oxygen saturation Oxygen saturation in Arterial blood by Pulse oximetry Systolic And Diastolic Provider Name and Address Organization Details Last Updated DateTime 5 160.02 cm 35.3 kg/m2 54660.8 8 g 85 /min 98 % 98 % 120/82 mm[Hg] Judi Goins MA [facility] 5 15:40:27 Date Recorded Body height Body mass index (BMI) Body weight Heart rate Oxygen saturation Oxygen saturation in Arterial blood by Pulse oximetry Systolic And Diastolic Provider Name and Address Organization Details Last Updated DateTime 4 160.02 cm 35.6 kg/m2 92191.0 7 g 72 /min 97 % 97 % 150/92 mm[Hg] Shila Fischer MA [facility] 4 15:11:33 Date Recorded Body height Body mass index (BMI) Body weight Heart rate Oxygen saturation Oxygen saturation in Arterial blood by Pulse oximetry Systolic And Diastolic Provider Name and Address Organization Details Last Updated DateTime 4 160.02 cm 35.9 kg/m2 63235.8 9 g 77 /min 98 % 98 % 132/70 mm[Hg] Judi Goins MA [facility] 4 15:36:11 Social History Question Answer Notes LastModified by Organizat ion Details LastModified Time Tobacco Smoking Status Former Smoker Deneen Kennedy MA [facility] 02/10/2024 14:24:43 Do You Have An Advance Directive? No Information n ot available 02/10/2024 Are You Blind Or Do You Have Difficulty Seeing? No Information n ot available 02/10/2024 What Is Your Level Of Caffeine Consumption? Moderate Information not available 02/10/2024 In The 14 Days Before Symptom Onset, Have You Had Close Contact With A Laboratory-confirm ed COVID-19 While That Case Was Ill? No Information n ot available 08/31/2024 In The 14 Days Before Symptom Onset, Have You Had Close Contact With A Person Who Is Under Investigation For COVID-19 While That Person Was Ill? No Information not available 08/31/2024 Have You Been To An Area Known To Be High Risk For COVID-19? No Information not available 08/31/2024 Are You Deaf Or Do You Have Serious Difficulty Hearing? No Information not available 02/10/2024 What Type Of Diet Are You Following? REGULAR Information n ot available 02/10/2024 What Was The Date Of Your Most Recent Tobacco Screening? 05/10/2025 [email or web address] Information not available 05/10/2025 What Is Your Current Pack Years? 10-19packyear s Information not available 02/10/2024 What Is Your Relationship Status? Information not available 02/10/2024 Do You Use Your Seat Belt Or Car Seat Routinely? Yes Information not available 02/10/2024 Do You Have Smoke And Carbon Monoxide Detectors In Your Home? Yes Information not available 02/10/2024 How Much Tobacco Do You Smoke? 1 PPW Information not available 02/10/2024 Do You Use Sunscreen Routinely? No Information not available 02/10/2024 Has Tobacco Cessation Counseling Been Provided? No Information not available 02/10/2024 How Many Years Have You Smoked Tobacco? 5 Information not available 02/10/2024 Sex: Female Functional Status Question Answer Note LastModified by Organizat ion Details LastModified Time Do you use any illicit or recreational drugs? No Information not available 02/10/2024 Do you or have you ever used any other forms of tobacco or nicotine? No Information not available 02/10/2024 What is your level of alcohol consumption? Occasional Information not available 02/10/2024 Are you currently employed? Yes Information not available 08/31/2024 Are you able to care for yourself? Yes Information n ot available 02/10/2024 What is your exercise level? Occasional Information not available 02/10/2024 Mental Status Question Answer Note LastModified by Organization D etails LastModified Time Do you feel stressed (tense, restless, nervous, or anxious, or unable to sleep at night)? [id number] Information not available 02/10/2024 Family History Relationship Description Onset Age of [...] Response Coronary Artery Disease N Other N High Blood Pressure Y Atrial Fibrillation N Kidney or Bladder Problems N Thyroid Problems N GI Problems N Depression N COPD N Blood Clots N Have you had a mammogram in the last yea r? Y Skin Problems N Anemia Y Heart Attack (TN) N Anxiety Disorder N Diabetes Y Muscle, Joint, or Bone Problems N Seizures/Epilepsy N Have you had a colonoscopy in the last 1 0 years? N Acid Reflux (GERD) N Cancer N Stroke N Asthma N Allergies N High Cholesterol Y Hepatitis N Liver Disease N Headaches N Osteoporosis N Heart Failure N Gynecological HistoryNo gynecological history recorded. Obstetrics History GPAL:G 0 P 0 0 0 0 Immunizations Vaccine Type Date Status Note Provider Nam e and Address Organization Details Recorded Time Influenza, split virus, quadrivalent, preservative 2 completed ROBB Saunders, [place] [facility] 04/10/2024 16:42:31 Influenza, split virus, quadrivalent, preservative 7 completed ROBB [place], [place] [facility] 04/10/2024 16:42:31 Influenza, MDCK, quadrivalent, PF 3 completed ROBB [place], [place] [facility] 04/10/2024 16:42:31 COVID-19, mRNA, LNP-S, PF, 100 mcg/0.5mL dose or 50 mcg/0.25mL dose 1 maty Maldonado, [place] null, [place] [facility] 04/10/2024 16:42:31 [...] PF, verna-sucrose, 30 mcg/0.3 mL 3 completed ROBB [place]unders, [place] [facility] 04/10/2024 16:42:31 Influenza, split virus, quadrivalent, PF 0 completed ROBB [place]unders, [place] [facility] 04/10/2024 16:42:31 Past Encounters Encounter ID Performer Location Encounter Start Date Encounter Closed Date Diagnosis/Indication Diagnosis SNOMED-CT Code Diagnosis ICD10 Code Diagnosis Note [id number] Ryne Liz MD [facility] [place] [address] [place] [employer] [place] [address] 02/10/2024 14:10:14 02/10/2024 15:18:21 Essential hypertension 63096142 I10 Iron defic iency anemia 90658617 D50.9 History of bariatric surgical procedure 357247211 Z98.84 Type 2 andi betes mellitus 63088777 E11.9 Hyperlipidemia 34746503 E78.5 [id number] Ryne Liz MD [facility] [employer] [facility] [place] [address] [place] [address] 08/31/2024 14:54:34 08/31/2024 15:52:05 Obesity 566200686 E66.9 Anxiety 37077049 F41.9 Essential hypertension 43666807 I10 Prediabetes 203726670 R7 3.03 Hyperlipidemia 52718887 E78.5 [id number] Ryne Liz MD [facility] [place] [address] [place] [address] 10/12/2024 15:22:15 10/12/2024 16:02:00 Obesity 942229161 E66.9 Type 2 andi betes mellitus 72107408 E11.9 Essential hypertension 28931950 I10 Hyperlipidemia 46262845 E78.5 [id number] Ryne Liz MD [facility] [place] [address] [place] [address] 05/10/2025 15:28:46 05/10/2025 16:10:03 Obese class II 9881329141 68127 E66.812 BMI 35.3 Essential hypertension 42954304 I10 Type 2 andi betes mellitus 45689905 E11.9 Hyperlipidemia 69491590 E78.5 Anxiety 16274847 F41.9 Iron defic iency anemia 32072599 D50.9 Health Concerns Section Related Observation LastModified by Organization Detai ls LastModified Time None Recorded Concern Status LastModified by Organization Details LastModified Time None Recorded Advance Directives Directive N: Payers Insurance Date Sequence Insurance Name Policy Number Policy Huber Covered Member ID Huber Member ID Guarantor Name 05/11/2025 1 [place] [id number] Regulo Cox [id number] Melina Cox 02/10/2024 1 *SELF PAY* Hortencia Cox Notes Date Note Type Note Provider [...] GLP-1 Ryne Liz MD Attn: Accounting,[address] [facility], [place], [address], [place] [facility] 02/11/2024 13:51:07 08/31/2024 text/html hypertension no headache or dizzinessanxiety is bothering bit no depression no SI SIdiabetes she needs an A1c Ryne Liz MD Attn: Accounting,[address] [facility], [place], [address], [facility] - [facility] 09/12/2024 22:48:41 10/12/2024 text/html hypertension no headache no dizziness no shortness a breath 132/70. Obesity doing well weight loss on the GLP 1 no side effects hyperlipidemia blood work reviewed. Anxiety has been doing well Ryne Liz MD Attn: Accounting,[address] [facility], [place], [address], [place] [facility] 11/12/2024 18:30:44 05/10/2025 text/html Anxiety doing fi ne diabetes no polyphagia or polydipsia tolerating medications. Dyslipidemia needs to follow a low-fat diet her obesity is doing a lot better Ryne Liz MD Attn: Accounting,[address] [facility], [place], [address], [place] [facility] 05/10/2025 21:26:43 OBGyn Episode No OBEpisode recorded.
--- OUTSIDE RECORDS SUMMARY | 2025-05-15 09:08 | XMS_ITS | Clinical Summary ---
Author Organization [facility] [employer] Address [address] [place] [address] Care Team Providers Care [employer] Information [employer] Officer Name Role Phone Db Liz MD Primary Care Provider [phone] Source Comments [facility] [employer],non-owned Affiliates and Associated Physician Practices is amultiple site organization consisting of ambulatory clinics and hospital sitesin [place], [place], [place] and [place]. This disclosure is being madepursuant to the Care Everywhere program and may not contain all information available regarding this patient. Last updated 18.[employer] Allergies Active Allergy Reactions Criticality Noted Date Comments Hydrocodone-Acetaminophen Vomiting Low 11/27/2023 Tramadol works best Nsaids Other Low 10/28/2019 Gastric bypass surgery Medications * Be aware that medications may not be up to date on this document. Alwaysverify current medications with the patient. lisinopril (Prinivil; Zestril) 10 MG tablet Take 1 (one) tablet by mouth once daily 2 Active omeprazole (PriLOSEC) 20 MG capsule Take 1 (one) capsule by mouth daily before breakfast Active vitamin D, ergocalciferol, (Drisdol) 1.25 MG (57583 UT) capsule Take 1 (one) capsule by mouth every 7 days 12 capsule 4 Active Active Problems Problem Noted Date Diagnosed Date Iron deficiency anemia 12/13/2023 Complications of gastric bypass surgery 11/27/19 24 S/P gastric bypass 02/03/2019 Immunizations Immunization Administration Dates Next Due Covid Moderna primary monovalent 12+ yr 0.5mL ,01/18/2021 Family History Medical History Relation Name Comments Diabetes - Type 2 Father Hypertension Father CAD (Coronary Artery Disease) Maternal Grandmother CVA Maternal Grandmother Diabetes - Type 2 Mother Hypertension Mother Relation Name Status Comments Father Maternal Grandmother Mother Social History Tobacco Use Types Packs/Day Years Used Date Smoking Tobacco: Former Cigarettes 0.5 3 1 998 - 2001 Smokeless Tobacco: Never Tobacco Cessation:Counseling Given: Not [...] more drinks on one occasion? 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 Pulse 79 01/16/2024 2:29 PM SHEARING MACHINE OPERATOR Temperature 36.6 C (97.8 F) 01/16/2024 2:29 PM SHEARING MACHINE OPERATOR Respiratory Rate 18 01/16/2024 2:29 PM SHEARING MACHINE OPERATOR Oxygen Saturation 100% 01/16/2024 2:29 PM SHEARING MACHINE OPERATOR Inhaled Oxygen Concentration - - Weight 91 kg (200 lb 9.6 oz) 12/25/2023 11:58 AM SHEARING MACHINE OPERATOR Height 160 cm (5' 3) 12/25/2023 11:58 AM SHEARING MACHINE OPERATOR Body Mass Index 35.53 12/25/2023 11:58 AM SHEARING MACHINE OPERATOR Plan of Treatment Health Maintenance Due Date Last Done Comments COLOGUARD (AGES 45-75) - COLON CA SCREENING 1980 COLON MONITORING 1980 COLONOSCOPY - COLON CA SCREENING 1980 CT COLONOGRAPHY - COLON CA SCREENING 1980 Colorectal Cancer Screening 1980 FIT - COLON CA SCREENING 1980 FLEX SIG - COLON CA SCREENING 1980 LIPID TESTING 1980 HIV SCREENING 02/15/1995 HEPATITIS C SCREENING 02/11/1998 DTAP/TDAP/TD VACCINES (1 - Tdap) 02/15/1999 HEPATITIS B VACCINE (1 of 3 - 19+ 3-dose series) 02/15/1999 PAP SMEAR 02/15/2001 MAMMOGRAM 01/08/2024 01/08/2022 COVID-19 VACCINE (4 - season) 2024 09/12/2021, 02/17/2021, 01/18/2021 DEPRESSION SCREENING 11/11/2024 INFLUENZA VACCINE (#1) 2025 2, 09/21/2017, 09/09/2013 SCREENING FOR DIABETES 02/09/2027 4, 11/28/2023, 11/28/2023, Additional history exists ZOSTER VACCINE [...] Agency Comment Lab Testing performed at: [facility] [address] [id number] Maryse Griffin EQUIPMENT VALIDATION SPECIALIST-PATTERN REPAIR PERSON LAB - CHEMISTRY TRISTAN OLIVIER Final Result [facility] ACCOUNT [facility]ILL [address] [place] [address] from Last 3 Months or Most Recently Relevant to Health Maintenance Insurance [facility] Address: [facility] [id number] [place] [address] Advance Directives * Full Code (Latest Code Status on File) Date Activated Date Inactivated Comments 11/27/2023 11:07 AM 11/28/2023 7:20 PM * Full Code Date Activated Date Inactivated Comments 02/03/2019 2:42 PM 02/05/2019 1:48 PM Care Teams [employer] Information [employer] Officer Relationship Specialty Start Date End Date Db Liz MD PCP - General Internal Medicine 07/17/18
--- OUTSIDE RECORDS SUMMARY | 2025-05-15 09:08 | XMS_ITS | Data Portability ---
Author Organization [place] [facility], Main Office Address [address] [place] [address] Care Team Providers Care Machine Tool Builder Name Role Phone RYNE LIZ Primary Care Provider RYNE LIZ Referring Provider [phone] AMADOU FORD Patient Services Technician [phone] Assessment Encounter Date Assessment Date Assessment LastModified by Organization Details LastModified Time 01/17/2023 01/17/2023 I have Orthopedics take a look at her x-ray humerus keep her regular follow-up [email or web address] Not available 01/17/2023 22:05:52 01/25/2023 01/25/2023 42-year-old female presenting for her left shoulder and arm. She has had pain since last May, without any acute injury. Is been getting worse recently. The pain is located in the shoulder and it bothers her with overhead activity and repetitive motion. She also has pain which radiates from her elbow into her ring and small fingers. This is Especially bothersome at night. She has not had any treatments including therapy or medications. She did get an EMG, which was negative. She is right-hand dominant. 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 Review of systems per patient questionnaire Physical exam she has some soreness diffusely over the anterolateral shoulder. Range of motion 140/30/lower lumbar. She has 5/5 strength rotator cuff testing, some discomfort with resisted external rotation and resisted elevation. Negative Trumbull's. Positive Neer, Gonzalez. Negative Speed, Yergason's. She has subjectively diminished sensation over the ring and pinky fingers. Two-point discrimination is intact, less than 5 mm. She has a mild Tinel's over the cubital tunnel. No ulnar nerve subluxation. X-rays of the shoulder were reviewed, demonstrating no acute bony abnormality. Previous EMG report was also reviewed, demonstrating no abnormalities. Given she has not had previous treatment, we will begin her with a course of anti-inflammator ies and physical therapy. An order for PT was given and she can work on both her shoulder and her elbow. We also recommended a pillow brace for at night. She will follow-up in 4-6 weeks after course of therapy. [email or web address] Not available 01/25/2023 18:28:53 07/09/2023 07/09/2023 Continue current therapy blood work ordered follow-up in 4 months [email or web address] Not available 07/09/2023 13:00:52 Plan of Treatment Reminders Order Date Submit Date Provider Last Modified By Organization Details Last Modified Time Details Appointments None recorded. Lab HbA1c (hemoglobin A1c), blood 2022 023 [facility] (Lab), [address] [place] [address], [id number], 3 15:03:02 lipid panel, serum 2022 023 [facility] (Lab), [address] [place] [address], [address], 3 16:54:40 TSH, serum or plasma 2022 023 [facility] (Lab), [address] [place] [address], [address], 3 08:58:26 T3, free, serum or plasma 2022 023 [facility] (Lab), [address] [place] [address], [address], 3 08:58:25 T4, free, serum 2022 023 [facility] (Lab), [address] [place] [address], [address], 3 08:58:25 CBC w/ auto diff 2022 023 [facility] (Lab), [address] [place] [address], [address], 3 15:03:02 CMP, serum or plasma 2022 023 [facility] (Lab), [address] [place] [address], [address], 3 16:37:17 Referral physical therapist referral - Please contact pt to schedule apt for L shoulder and L elbow. Thanks 2022 023 [facility], [address] [place], [address], 3 17:54:03 orthopedic surgeon referral 2022 023 [email or web address] Jordan Simon MD, [address] [place] [address] [address], [place], [address], 4 10:06:26 Procedures None recorded. Surgeries None recorded. Imaging XR, humerus 2022 023 [facility] (Imaging), [address] [place] [address], [address], 3 10:45:55 Medication Orders None recorded. Patient TargetsNo targets recorded. Patient InstructionsNo instructions recorded. Reason for Referral Orthopedic Surgeon Referral for Pain in left arm Referring Physician: Ryne Liz, Internal Medicine, Encounter Date: 01/17/2023 Physical Therapist Referral for Pain of left elbow joint L elbow and L shoulder Please contact pt to schedule apt for L shoulder and L elbow. Thanks Referring Physician: Edd Anderson, Orthopedic Surgery, Encounter Date: 01/25/2023 Results Created Date Observation Date Name Description Value Unit Range Abnormal Flag Note LastModifiedBy Organization Detail LastModifiedTime 08/28/20 22 08/28/2022 HEMOG LOBIN A1C HA1C 5.5 % 4.0-6. 0 Diabe tay Scree mateus Crite randall: <5.7% Consi stent with absen ce of diabe tay 5.7-6 .4% Consi stent with incre ased risk for diabe tay (pred iabet es) >OR=6 .5% Consi stent with diabe tay REFER ENCE: Diabe tya Care 2016, 39(Rincon ppl.1 ):s13 -s22 Not Available [facility] [place] [facility] (Lab) [address] [place], [address], 08/28/2022 21:40:12 08/28/20 22 08/28/2022 LIPID PANEL cholesterol 188 mg/dL 140-19 9 NIH JAYJAY NSUS RECOM MENDA TION FOR LUZ STERO L: ADULT CHILD LOW RISK: <200 <170 BORDE RLINE : <200- 239 ----- HIGH RISK: >240 >200 Not Available [facility] [place] [facility] (Lab) [address] [place], [address], 08/28/2022 20:04:07 08/28/2008/28/2022 LIPID PANEL triglyceride s 183 mg/dL 0-150 high NIH JAYJAY NSUS REPOR T RECOM MENDA TION FOR TRIGL YCERI DOMENIC: ADULT CHILD LOW RISK: <150 ----- BODER LINE: 150-1 99 ----- HIGH RISK: >200 ----- Not Available [facility] [place] [facility] (Lab) [address] [place], [address], 08/28/2022 20:04:07 08/28/20 22 08/28/2022 LIPID PANEL HDL cholesterol 48 mg/dL 40- Not Available [facility] [place] [facility] (Lab) [address] [place], [address], 08/28/2022 20:04:07 08/28/2008/28/2022 LIPID PANEL LDL cholesterol, calculated 103 mg/dL 0-130 NIH JAYJAY NSUS REPOR T RECOM MENDA TIONS FOR LDL: ADULT CHILD LOW RISK <130 <110 (OPTI MAL LDL) <100 ----- BORDE RLINE : 130-1 59 ----- HIGH RISK: >160 >130 A TRIGL YCERI DE RESUL T >400 INVAL IDATE S THE CALCU LATIO N FOR LDL FRACT IONAT ION - THE LDL RESUL T WILL NOT BE REPOR SHAUN. Not Available [facility] [place] [facility] (Lab) [address] [place], [address], 08/28/2022 20:04:07 08/28/20 22 08/28/2022 COMPR EHENS EV METAB OLIC PANEL sodium 138 mmol/ L 137-14 5 Not Available [facility] [place] [facility] (Lab) [address] [place], [address], 08/28/2022 20:04:02 08/28/2008/28/2022 COMPR EHENS EV METAB OLIC PANEL potassium 4.1 mmol/ L 3.5-5. 1 Not Available [facility] [place] [facility] (Lab) [address] [place], [address], 08/28/2022 20:04:02 08/28/20 22 08/28/2022 COMPR EHENS EV METAB OLIC PANEL chloride 107 mmol/ L 98-107 Not Available [facility] [place] [facility] (Lab) [address] [place], [address], 08/28/2022 20:04:02 08/28/20 22 08/28/2022 COMPR EHENS EV METAB OLIC PANEL carbon dioxide 22 mmol/ L 22-30 Not Available [facility] [place] [facility] (Lab) [address] [place], [address], 08/28/2022 20:04:02 08/28/20 22 08/28/2022 COMPR EHENS EV METAB OLIC PANEL anion gap 13.1 mmol/ L 14-22 low Not Available [facility] [place] [facility] (Lab) [address] [place], [address], 08/28/2022 20:04:02 08/28/20 22 08/28/2022 COMPR EHENS EV METAB OLIC PANEL glucose 95 mg/dL 70-99 Not Available [facility] [place] [facility] (Lab) [address] [place], [address], 08/28/2022 20:04:02 08/28/20 22 08/28/2022 COMPR EHENS EV METAB OLIC PANEL BUN 12 mg/dL 8-19 Not Available [facility] [place] [facility] (Lab) [address] [place], [address], 08/28/2022 20:04:02 08/28/20 22 08/28/2022 COMPR EHENS EV METAB OLIC PANEL creatinine 0.81 mg/dL 0.66-1 .25 Not Available [facility] [place] [facility] (Lab) [address] [place], [address], 08/28/2022 20:04:02 08/28/20 22 08/28/2022 COMPR EHENS EV METAB OLIC PANEL GFR >60 Refer ence Range : [place] ge GFR Healt hy Adult : >60 mL/mi n/1.7 3 m2 Chron ic Kidne y Disea se: 15-60 mL/mi n/1.7 3 m2 Kidne y Failu re: <15/m L/min /1.73 m2 www.n iddk. nih.g ov The MDRD study equat ion has not been valid ated in child rosa <18 years of age; pregn ant women ; the elder ly >85 years of age; or in some racia l or ethni c subgr oups, such as Hisct nics. Outsi de the valid ated samm eters , estim ated GFR is less accur ate, requi ring clini karin judgm ent on a case- by-ca se basis . Clini karin inter preta tion for other races and ages must be made by the clini farnaz. The MDRD study equat ion has not been valid ated for the evalu ation of serum creat inine relat ed to nutri cammy l statu s or medic ation usage . For perso ns <18 years of age, a pedia tric GFR calcu lator is avail able on the [facility] websi te: https ://ww w.kid david.jenny garcia/pr ofess ional s/kdo qi/gf r_cal culat or Not Available [facility] [place] [facility] (Lab) [address] [place], [address], 08/28/2022 20:04:02 08/28/20 22 08/28/2022 COMPR EHENS EV METAB OLIC PANEL alkaline phosphatase 82 U/L 38-126 Not Available [facility] [place] [facility] (Lab) [address] [place], [address], 08/28/2022 20:04:02 08/28/20 22 08/28/2022 COMPR EHENS EV METAB OLIC PANEL alanine aminotransfe rase 20 U/L 0-35 Not Available [facility] (Lab) [address] [place], [address], 08/28/2022 20:04:02 08/28/20 22 08/28/2022 COMPR EHENS EV METAB OLIC PANEL aspartate aminotransfe rase 21 U/L 15-37 Not Available [facility] (Lab) [address] [place], [address], 08/28/2022 20:04:02 08/28/20 22 08/28/2022 COMPR EHENS EV METAB OLIC PANEL bilirubin, total 0.50 mg/dL 0.20-1 .30 Not Available [facility] [place] [facility] (Lab) [address] [place], [address], 08/28/2022 20:04:02 08/28/20 22 08/28/2022 COMPR EHENS EV METAB OLIC PANEL calcium 9.2 mg/dL 8.4-10 .2 Not Available [facility] [place] [facility] (Lab) [address] [place], [address], 08/28/2022 20:04:02 08/28/20 22 08/28/2022 COMPR EHENS EV METAB OLIC PANEL total protein 7.2 g/dL 6.3-8. 2 Not Available [facility] [place] [facility] (Lab) [address] [place], [address], 08/28/2022 20:04:02 08/28/20 22 08/28/2022 COMPR EHENS EV METAB OLIC PANEL albumin 4.3 g/dL 3.4-5. 0 Not Available [facility] [place] [facility] (Lab) [address] [place], [address], 08/28/2022 20:04:02 08/28/20 22 08/28/2022 COMPR EHENS EV METAB OLIC PANEL globulin 2.9 g/dL 2.6-4. 2 Not Available [facility] [place] [facility] (Lab) [address] [place], [address], 08/28/2022 20:04:02 08/28/2008/28/2022 COMPR EHENS EV METAB OLIC PANEL A/G ratio 1.5 ratio 1.0-2. 0 Not Available [facility] [place] [facility] (Lab) [address] [place], [address], 08/28/2022 20:04:02 01/17/20 23 12/27/2022 nerve condu ction study No observ ation record ed. Not Available 01/09 10:00:22 01/18/20 23 XR, humer us [facility] [address] [place] [address] [phone] Patien t Name: IFEOMA EASLEY Access ion #: [id number] Sex: F : 1979 9 Locati on: RA2 Attend ing Physic amy: ZORAIDA LIZ Orderi Physic amy: ZORAIDA LIZ Exam Date: 01/18/20 23 3:51 PM Exam Name: XR HUMERU S LT Admitt ing Diagno sis(es ): RADIOL OGY REPORT - FINAL EXAM: XR HUMERU S LT HISTOR Y: pain COMPAR JEFRY: None Availa ble. TECHNI QUE: AP and latera l views of the left humeru s were perfor med. FINDIN GS: No fractu re is identi fied about the left humeru s. The should er and elbow are grossl y normal . IMPRES DIANE: No fractu re or acute osseou s abnorm ality about the left humeru s. Page 1 of 2 [facility] Pati t Name: IFEOMA EASLEY ion #: [id number] Sex: F : 1979 9 Exam Date: 01/18/20 3:51 PM Exam Name: XR HUMERU S LT Admitt ing Diagno sis(es ): Create d and electr onical ly signed by: Farhad landin MD Signed Date: 01/18/20 4:43 PM (CT) Dictat ed by: Farhad landin MD (CT) (CT) Page 2 of [email or web address] [place] [address] (Imaging) [address] [place], [address], 07/09/2023 15:07:44 02/26/20 23 02/22/2023 XR, elbow No observ ation record ed. [address], [place], [address], 05/15/2023 14:10:44 03/27/20 23 03/27/2023 MRI, shoul erasto, w/o contr ast No observ ation record ed. [place] [id number] [facility] [address], [place], [address], 05/15/2023 14:35:11 03/27/20 23 03/27/2023 MRI, shoul erasto, w/o contr ast No observ ation record ed. [facility] [address] [facility] [address], [address], 05/15/2023 14:34:37 05/03/20 23 05/03/2023 MAMMO , scree mateus, digit al, bilat eral No observ ation record ed. [facility] [address] [place], [address], 05/15/2023 14:14:53 05/15/20 XR, shoul erasto No observ ation record ed. [facility] [address], [place], [address], 05/15/2023 14:10:44 11/05/2011/05/2023 CT, abdom en + pelvi s, w/o contr ast No observ ation record ed. [facility] [address] [place], [address], 11/15/2023 08:36:15 Result Notes Documentation Provider Name and Address Organization Details Recorded Time Xr, Humerus : [address] [id number] Patient Name: IFEOMA COX Sex: F : 1980 Location: [facility] Attending Physician: RYNE LIZ Ordering Physician: RYNE LIZ Exam Date: 01/17/2023 3:51 PM Exam Name: XR HUMERUS LT Admitting Diagnosis(es): RADIOLOGY REPORT - FINAL EXAM: XR HUMERUS LT HISTORY: pain COMPARISON: None Available. TECHNIQUE: AP and lateral views of the left humerus were performed. FINDINGS: No fracture is identified about the left humerus. The shoulder and elbow are grossly normal. IMPRESSION: No fracture or acute osseous abnormality about the left humerus. Page 1 of 2 [facility] Patient Name: IFEOMA COX Sex: F : 1980 Exam Date: 01/17/2023 3:51 PM Exam Name: XR HUMERUS LT Admitting Diagnosis(es): Created and electronically signed by: Farhad Ireland MD Signed Date: 01/17/2023 4:43 PM (CT) Dictated by: Farhad Ireland MD (CT) (CT) Page 2 of 2 AMEENA Luna, [place] - [facility] [employer] [facility] 07/09/2023 15:07:44 Problems Name Problem SNOMED Code Status Onset Date Resolution Date Notes Provider Name and Address Organization Details Recorded Time Pneumonia 782929009 Active Not Available [facility] 3 11:53:33 Overweight 507377704 Active Not Available [facility] 3 11:53:33 Pure hyperchole sterolemia 958526368 Active Not Available [facility] 3 11:53:33 Proteinuri a 63591870 Active Not Available [facility] 3 11:53:33 Type 2 diabetes mellitus without complicati on 839654450 Active 2021 Not Available [facility] 3 11:53:33 Obesity 313501790 Active Not Available [facility] 3 11:53:33 Upper respirator y infection 89041530 Active 2021 Not Available [facility] 3 11:53:33 Essential hypertensi on 51293360 Active Not Available [facility] 3 11:53:33 Diabetes mellitus 26008813 Active Not Available [facility] 3 11:53:33 Hyperglyce mariola 65264141 Active Not Available [facility] 3 11:53:33 Leukopenia 31838718 Active Not Available [facility] 3 11:53:33 Paresthesi a 45349803 Active 2022 Not Available [facility] 3 11:53:33 Pain in left arm 946399190 Active 2022 Not Available [facility] 3 11:53:33 Pain of left elbow joint 7224601438959 9104 Active 2022 Not Available [facility] 3 11:53:33 Impingemen t syndrome of left shoulder region 1404297182261 04 Active 2022 Not Available [facility] 3 11:53:33 Neuritis of left ulnar nerve 9591936897799 9100 Active 2022 Not Available [facility] 3 11:53:33 Neck pain 24598672 Active 2022 Not Available [facility] 3 11:53:33 Muscle pain 95904178 Active 2022 Not Available [facility] 3 11:53:33 Fatigue 19881284 Active 2022 AMEENA Saunders, [facility] [employer] [facility] 3 12:37:14 Cough 92402706 Active 2022 AILEEN Oconnor, [facility] [employer] [facility] 3 16:49:55 Problem Notes None recorded. Procedures Surgical History Date Name Laterality Status Provider Name and Address Organization Details Recorded Time 01/26/20 22 Breast Biopsy completed Not Available [facility] 2022 14:44:56 02/04/20 19 Gastric Bypass completed Not Available [facility] 01/09 14:44:56 08/08/20 16 laparoscopic sleeve gastrectomy completed Not Available [facility] 01/09/2023 14:44:56 Imaging Results None recorded. Procedure Notes None recorded. Medical Equipment None Reported. Allergies Allergen ID Allergen Name Allergen Category Reaction Reaction Severity Criticality Documentation Date Start Date Code Code System Note Provider Name and Address Organization Details Recorded Time 51466 Non-stero idal anti-infl ammatory agent (product) medicatio n Not available Not available Not available 01/25/2023 36919 005 SNOMED AMEENA Daly, [facility] [employer] [facility] 3 11:33:38 Medications Name Sig Start Date Stop Date Status Note LastModified by Organization Details LastModified Time cyclobenz aprine 10 mg tablet 03/06 completed Not Available Not Available Not Available amoxicill in 500 mg capsule Take 1 capsule every 8 hours by oral route for 7 days. 05/29 completed Not Available Not Available Not Available bupropion HCl SR 150 mg tablet,12 hr sustained -release TAKE 1 TABLET BY MOUTH TWICE A DAY 01/30 completed Not Available Not Available Not Available atorvasta tin 10 mg tablet 1/2 tab on Saturday, Sat, and 04/26 completed Not Available Not Available Not Available azithromy rodolfo 250 mg tablet TAKE 2 TABLETS BY MOUTH TODAY, THEN TAKE 1 TABLET DAILY FOR 4 DAYS 06/26 completed Not Available Not Available Not Available tizanidin e 4 mg tablet TAKE 1 TABLET BY MOUTH EVERYDAY AT BEDTIME 07/09 completed Not Available Not Available Not Available hydrocodo ne 5 mg-acetam inophen 325 mg tablet TAKE 1 (ONE) TABLET BY MOUTH EVERY 6 HOURS NEEDED FOR PAIN 04/24 completed Not Available Not Available Not Available meloxicam 15 mg tablet Take 1 tablet every day by oral route. active Not Available Not Available No t Available prednison e 20 mg tablet Take 2 tablets every day by oral route for 7 days. 01/17 completed Not Available Not Available Not Available permethri n 5 % topical cream 05/29 completed Not Available Not Available Not Available phentermi ne 15 mg capsule TAKE 1 (ONE) CAPSULE BY MOUTH DAILY BEFORE BREAKFAS T 01/30 completed Not Available Not Available Not Available oxycodone 5 mg/5 mL oral solution active Not Available Not Available Not Available topiramat e 25 mg tablet TAKE 1 TABLET BY MOUTH DAILY FOR 2 WEEKS, THEN INCREASE TO 1 TABLET TWICE DAILY 01/30 completed Not Available Not Available Not Available phentermi ne 37.5 mg tablet take 1 tablet 2 hours after breakfas tneeds appt next month active Not Available Not Available No t Available tramadol 50 mg tablet TAKE 1 TABLET BY MOUTH EVERY 6 HOURS NEEDED FOR PAIN (1-2 TABLETS PER DOSE) active Not Available Not Available No t Available ondansetr on 8 mg disintegr ating tablet 10/25 completed Not Available Not Available Not Available hydrocort isone acetate 25 mg rectal supposito ry Insert 1 supposit ory twice a day by rectal route for 10 days. active Not Available Not Available No t Available oxycodone -acetamin ophen 5 mg-325 mg tablet 03/06 completed Not Available Not Available Not Available OneTouch Ultra Test strips 02/18 completed Not Available Not Available Not Available benzonata te 100 mg capsule TAKE 1 CAPSULE BY MOUTH THREE TIMES A DAY FOR 7 DAYS active Not Available Not Available No t Available cyanocoba tito (vit B-12) 1,000 mcg/mL injection solution INJECT 1,000 (ONE THOUSAND ) MCG INTO MUSCLE ONCE DAILY FOR 3 DAYS 01/30 completed Not Available Not Available Not Available fluoxetin e 20 mg tablet Take 1 tablet every day by oral route. 03/05 completed Not Available Not Available Not Available lisinopri l 10 mg tablet active Not Available Not Available Not Available sertralin e 25 mg tablet active Not Available Not Available Not Available omeprazol e 20 mg capsule,d elayed release TAKE 1 CAPSULE BY MOUTH EVERY DAY active Not Available Not Available No t Available ergocalci ferol (vitamin D2) 1,250 mcg (50,000 unit) capsule TAKE 1 (ONE) CAPSULE BY MOUTH EVERY 7 DAYS 07/09 completed Not Available Not Available Not Available clobetaso l 0.05 % topical ointment 03/06 completed Not Available Not Available Not Available ondansetr on 4 mg disintegr ating tablet DISSOLVE 1 TABLET ON THE TONGUE EVERY 6 HOURS NEEDED FOR NAUSEA AND VOMITING active Not Available Not Available No t Available fluoxetin e 20 mg capsule 02/18 completed Not Available Not Available Not Available phentermi ne 37.5 mg capsule Take 1 capsule every day by oral route for 30 days. active Not Available Not Available No t Available amoxicill in 875 mg-potass ium clavulana te 125 mg tablet TAKE 1 TABLET BY MOUTH EVERY 12 HOURS active Not Available Not Available No t Available amoxicill in 500 mg-potass ium clavulana te 125 mg tablet 08/23 completed Not Available Not Available Not Available Crestor 10 mg tablet Take 1 tablet every day by oral route. active Not Available Not Available No t Available hydrocodo ne 7.5 mg-acetam inophen 325 mg/15 mL oral solution 03/06 completed Not Available Not Available Not Available nitrofura ntoin monohydra te/macroc rystals 100 mg capsule TAKE 1 CAPSULE BY MOUTH EVERY 12 HOURS FOR 5 DAYS 03/26 completed Not Available Not Available Not Available BD Integra Syringe 3 mL 23 gauge x 1 USE 3 SYRINGES ONCE DAILY FOR 3 DAYS 01/30 completed Not Available Not Available Not Available omeprazol e 10/30 completed Not Available Not Available Not Available OneTouch Ultra2 Meter kit 02/18 completed Not Available Not Available Not Available BD Ultra-Fin e Short Pen Needle 31 gauge x 5/16 07/02 completed Not Available Not Available Not Available Janumet 50 mg-500 mg tablet Take 1 tablet twice a day by oral route for 90 days. 10/25 completed Not Available Not Available Not Available Lantus Solostar U-100 Insulin 100 unit/mL (3 mL) subcutane ous pen Inject 12 units every day by subcutan eous route. active Not Available Not Available No t Available OneTouch Delica Lancets 33 gauge 02/18 completed Not Available Not Available Not Available Ozempic 0.25 mg or 0.5 mg (2 mg/1.5 mL) subcutane ous pen injector INJECT 1 mg subq weekly 08/28 completed changed to 1mg Not Available Not Available Not Available Fluzone Quad (PF) 60 mcg (15 mcg x 4)/0.5 mL IM syringe PHARMACY ADMINIST ERED active Not Available Not Available No t Available Ozempic 1 mg/dose (4 mg/3 mL) subcutane ous pen injector inject 1mg weekly 01/17 completed Not Available Not Available Not Available Flowflex COVID-19 Antigen Home Test kit 01/25 completed Not Available Not Available Not Available Ozempic 2 mg/dose (8 mg/3 mL) subcutane ous pen injector INJECT 2 MG UNDER THE SKIN EVERY WEEK active Not Available Not Available No t Available Mounjaro 7.5 mg/0.5 mL subcutane ous pen injector INJECT 7.5 MG SUBCUTAN EOUSLY ONE TIME PER WEEK FOR 28 DAYS active Not Available Not Available No t Available Mounjaro 5 mg/0.5 mL subcutane ous pen injector INJECT 5MG SUBCUTAN EOUSLY WEEKLY FOR 4 WEEKS active Not Available Not Available No t Available Mounjaro 15 mg/0.5 mL subcutane ous pen injector active Not Available Not Available Not Available Mounjaro 10 mg/0.5 mL subcutane ous pen injector active Not Available Not Available Not Available Mounjaro 12.5 mg/0.5 mL subcutane ous pen injector active Not Available Not Available Not Available Mounjaro 2.5 mg/0.5 mL subcutane ous pen injector INJECT 2.5MG WEEKLY FOR 4WKS THEN GO TO 5MG WEEKLY FOR 4WKS active Not Available Not Available No t Available Vitals Date Recorded Body mass index (BMI) Body height Heart rate Body temperature Body weight Systolic And Diastolic Provider Name and Address Organization Details Last Updated DateTime 3 36.4 kg/m2 162.56 cm 89 /min 99 [degF] 49116.5 8 g 130/80 mm[Hg] Not Available [facility] 3 14:45:30 Date Recorded Body height Body mass index (BMI) Body weight Body temperature Heart rate Systolic And Diastolic Provider Name and Address Organization Details Last Updated DateTime 3 162.56 cm 35.4 kg/m2 26824.0 3 g 97.4 [degF] 69 /min 146/88 mm[Hg] Virgen Alfredo Batool [facility] [employer] [facility] 3 15:32:03 Date Recorded Body height Body mass index (BMI) Body weight Provider Name and Address Organization Details Last Updated DateTime 01/25/2023 162.56 cm 34.3 kg/m2 27160.47 g Arjun Dey Batool [facility] [employer] [facility] 01/25/2023 11:33:24 Date Recorded Body height Body mass index (BMI) Body weight Body temperature Heart rate Systolic And Diastolic Provider Name and Address Organization Details Last Updated DateTime 3 162.56 cm 34.5 kg/m2 52615.0 7 g 97.5 [degF] 84 /min 126/82 mm[Hg] Tori pitt RN [facility] [email or web address] [facility] 3 11:26:03 Date Recorded Body mass index (BMI) Body height Heart rate Body temperature Body weight Systolic And Diastolic Provider Name and Address Organization Details Last Updated DateTime 2 37.2 kg/m2 162.56 cm 90 /min 97.8 [degF] 29424.5 4 g 124/84 mm[Hg] Not Available [facility] 3 14:45:29 Social History Question Answer Notes LastModified by Organization Details LastModified Time Tobacco Smoking Status Former Smoker quit 2000 AMEENA Saunders, [facility] [employer] [employer] 07/09/2023 11:05:27 Do You Have An Advance Directive? No [id number] Information not available 01/09/2023 What Is Your Level Of Caffeine Consumption? Heavy [id number] Information not available 01/09/2023 In The 14 Days Before Symptom Onset, Have You Had Close Contact With A Laboratory-conf irmed COVID-19 While That Case Was Ill? No Information not available 07/09/2023 In The 14 Days Before Symptom Onset, Have You Had Close Contact With A Person Who Is Under Investigation For COVID-19 While That Person Was Ill? No Information not available 07/09/2023 What Type Of Diet Are You Following? REGULAR [id number] Information not available 01/09/2023 Which Illicit Or Recreational Drugs Have You Used? Edibles Occasionally Information not available 07/09/2023 What Is The Highest Grade Or Level Of School You Have Completed Or The Highest Degree You Have Received? [id number] Information not available 07/09/2023 Have There Been Any Changes To Your Family Or Social Situation? No Information not available 07/09/2023 What Is The Fluoride Status Of Your Home? Unknown Information not available 07/09/2023 When Did You Quit Smoking? 16+yearssincelast cigarette Information not available 07/09/2023 Are There Any Guns Present In Your Home? Yes Information not available 07/09/2023 Do You Use Insect Repellent Routinely? Yes Information not available 07/09/2023 Where Do You Live? [facility] Information not available 07/09/2023 Do You Have A Medical Power Of Bore Mill Operator? No Information not available 07/09/2023 What Was The Date Of Your Most Recent Tobacco Screening? 07/09/2023 [email or web address] Information not available 07/09/2023 Have You Ever Been Counseled For Unhealthy Alcohol Use? No Information not available 07/09/2023 Do You Have Any Pets? Yes Information not available 07/09/2023 What Is Your Relationship Status? [id number] Information not available 01/09/2023 Do You Use Your Seat Belt Or Car Seat Routinely? Yes Information not available 07/09/2023 Do You Have Smoke And Carbon Monoxide Detectors In Your Home? Yes Information not available 07/09/2023 Are You Passively Exposed To Smoke? Yes Information not available 07/09/2023 Are There Any Smokers In Your House? Yes Information not available 07/09/2023 What Types Of Sporting Activities Do You Participate In? None Information not available 07/09/2023 Do You Use Sunscreen Routinely? Yes Information not available 07/09/2023 Has Tobacco Cessation Counseling Been Provided? No Information not available 07/09/2023 Have You Recently Traveled Abroad? No Information not available 07/09/2023 Have You Used IV Drugs? No Information not available 07/09/2023 Do You Have Any Dietary Restrictions? No Information not available 07/09/2023 Sex: Female Functional Status Question Answer Note LastModified by Organizat ion Details LastModified Time Do you use any illicit or recreational drugs? Yes Information not available 07/09/2023 Do you or have you ever used any other forms of tobacco or nicotine? No Information not available 07/09/2023 What is your level of alcohol consumption? 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 Occasional [id number] Information not available 01/09/2023 Mental Status Question Answer Note LastModified by Organization D etails LastModified Time Do you feel stressed (tense, restless, nervous, or anxious, or unable to sleep at night)? [id number] Information not available 07/09/2023 Family History Relationship Description Onset Age of this Age Resolved Age Notes LastModified by Organization Details LastModified Time Mother Diabetes mellitus [id number] Not available 01/09/2023 14:44:56 Mother Disorder of thyroid gland [id number] [id number] Not available 01/09/2023 14:44:56 Father Diabetes mellitus [id number].148 [id number] Not available 01/09/2023 14:44:56 Father Hypertensive disorder [id number].963 [id number] Not available 01/09/2023 14:44:56 Maternal Grandmother Hypertensive disorder [id number] [id number] Not available 01/09/2023 14:44:56 Maternal Grandmother Dementia cyahl Not available 07/09 11:05:26 Maternal Grandmother Cerebrovascu lar accident cyahl Not available 11:05:26 Maternal Aunt Malignant tumor of breast cyahl Not available 2022 11:05:26 Maternal Aunt Family history of malignant neoplasm cyahl Not available 2022 11:05:26 Father Heart disease [email or web address] Not available 2022 11:34:16 Medical History Condition Response NERVE DISEASE N BLINDNESS N RHEUMATIC FEVER N KIDNEY STONES N BLADDER PROBLEMS N MRSA N OTHER # 1 Y POLIO N LUNG DISEASE/DISORDER N HISTORY OF DRUG ABUSE N RADIATION / CHEMOTHERAPY N COPD N Other # 2 N BLOOD DISEASES N EAR OR HEARING PROBLEMS N MUMPS N SHINGLES N DEPRESSION (INCLUDING POST ) N BOWEL PROBLEMS N STROKE/TIA N ULCERS N BENIGN PROSTATIC HYPERPLASIA N MEASLES N HYPOTENSION N MYOCARDIAL INFARCTION N OBESITY Y GERD/NAUSEA N ANEURYSM N URINARY/BLADDER/KIDNEY PROBLEMS Y CORONARY ARTERY DISEASE (CAD) N ADDICTION CONCERNS N Impotence N ENDOMETRIOSIS N USE OF BLOOD THINNERS N SKIN PROBLEMS N GASTROINTESTINAL DISORDER N PERIPHERAL VASCULAR DISEASE N MUSCLE,JOINT OR BONE PROBLEMS N GASTROINTESTINAL BLEEDING N BLOOD CLOTS N ASTHMA N CATARACTS N ERECTILE DYSFUNCTION N VARICOSITIES N GI PROBLEMS N Low Testosterone N INFERTILITY N AIDS/HIV N CHEMOTHERAPY / RADIATION N LIVER DISEASE N MALE HYPOGONADISM N HYPERTENSION Y Deficiency N TOURETTE'S N ANXIETY DISORDER N BLOOD TRANSFUSION N ANEMIA/BLOOD DISORDER N CHRONIC EAR INFECTIONS N BRONCHITIS N TUBERCULOSIS N GLAUCOMA N FOOT PROBLEM N DIVERTICULITIS N SLEEP APNEA N CHICKENPOX N INFECTIOUS DISEASE N PROSTATE N HEART ARRHYTHMIA N INSOMNIA N HIGH CHOLESTEROL / HYPERLIPIDEMIA Y EYE PROBLEMS N HYPERTHYROIDISM N EDEMA N CHRONIC PAIN SYNDROME N HYPOTHYROIDISM N CAROTID BLOCKAGE N CONSTIPATION N BACK / NECK PROBLEMS N HAVE YOU BEEN HOSPITALIZED OR SEEN IN [facility] IN THE PAST YEAR ? N ATHEROSCLEROSIS N BREAST PROBLEMS N DIALYSIS N ECZEMA N OSTEOPOROSIS N ARTHRITIS N APPENDICITIS N DIABETES, TYPE Y BAD TEETH N ENT N HEARTBURN / REFLUX N AUTISM SPECTRUM DISORDER (ASD) N HEPATITIS / LIVER DISEASE N GOUT N SLEEP DISORDER N ALZHEIMER'S DISEASE N Brain Problems N DEMENTIA N HERPES N SEIZURES/EPILEPSY N HEADACHES/MIGRAINES N VASCULAR DISEASE N PACEMAKER N Blood Disorder N DIZZINESS N HEART DISEASE/HEART PROBLEMS N KIDNEY DISEASE N MULTIPLE SCLEROSIS N CANCER: SPECIFY N CARDIAC ARRHYTHMIA N ATRIAL FIBRILLATION N Gall Stones N PULMONARY EMBOLISM N AUTOIMMUNE DISEASE N Gynecological HistoryNo gynecological history recorded. Obstetrics History GPAL:G 0 P 0 0 0 0 Immunizations Vaccine Type Date Status Note Provider Nam e and Address Organization Details Recorded Time COVID-19, mRNA, LNP-S, PF, 30 mcg/0.3 mL dose 1 completed Not Available [facility] 04[facility]2023 11:53:33 COVID-19, mRNA, LNP-S, PF, 100 mcg/0.5mL dose or 50 mcg/0.25mL dose 1 completed Not Available [facility] 04/05/2023 11:53:33 COVID-19, mRNA, LNP-S, PF, 100 mcg/0.5mL dose or 50 mcg/0.25mL dose 1 completed Not Available [facility] 04/05/2023 11:53:33 Influenza, split virus, quadrivalent, preservative 2 completed Not Available [facility] 04/05/2023 11:53:33 Influenza, split virus, quadrivalent, preservative 7 completed Not Available [facility] 04/05/2023 11:53:33 Past Encounters Encounter ID Performer Location Encounter Start Date Encounter Closed Date Diagnosis/Indication Diagnosis SNOMED-CT Code Diagnosis ICD10 Code Diagnosis Note [id number] [facility] [place] [address] [place] [address] [place] [address] [address] 01/30/2022 00:00:00 01/30/2022 22:27:28 [id number] [facility] [place] [address] [facility] [place] [address] 04/24/2022 00:00:00 05/25/2022 20:21:30 [id number] [facility] [place] [address] [place] [address] [place] [address] 06/26/2022 00:00:00 07/01/2022 17:23:52 [id number] Ryne Liz MD [facility] [place] [address] [place] [address] [place] [address] 08/28/2022 00:00:00 08/28/2022 21:33:58 [id number] Ryne Liz MD [facility] [place] [address] [place] [address] [place] [address] 11/15/2022 00:00:00 11/15/2022 23:26:47 [id number] Ryne Liz MD [facility] [place] [address] [place] [address] [place] [address] 01/17/2023 15:20:45 01/17/2023 16:54:02 Pain in left arm 972195835 M79.602 [id number] Edd Anderson MD [facility] [place] 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 4429757970 3903110 G56.22 [id number] Ryne Liz MD [facility] [place] [address] [place] [address] [place] [address] 07/09/2023 11:04:49 07/09/2023 12:36:38 Essential hypertension 19651543 I10 Diabetes mellitus 669670 09 E11.9 Fatigue 08932670 R53.83 Health Concerns Section Related Observation LastModified by Organization Detai ls LastModified Time None Recorded Concern Status LastModified by Organization Details LastModified Time None Recorded Advance Directives Directive N: Payers Insurance Date Sequence Insurance Name Policy Number Policy Huber Covered Member ID Huber Member ID Guarantor Name 07/06/2023 1 [facility] [id number] Regulo Gipson Brooke [id number] Ifeoma Cox 07/03/2023 [facility] Ifeoma Cox Notes Date Note Type Note Provider Name and Address Organization Details Recorded Time 01/17/2023 text/html Nerve conduction unremarkable still having pain in her left arm worse when she tries to bring the arm behind her back. No neck pain. Ryne Liz MD [address], [place], [address], [employer] 01/17/2023 22:06:10 07/09/2023 text/html hypertension no headache no dizziness. Diabetes try to follow a low-fat diet she is taking the Ozempic has lost about 30 lb. And she has had some fatigue. Ryne Liz MD [address], [place], [address], [employer] 07/09/2023 13:01:25 OBGyn Episode No OBEpisode recorded.
[2025-05-15 09:20] LABS: Hematocrit 39.1 % (35.0-49.0); Hemoglobin 13.1 g/dL (12.0-15.0); Immature Granulocyte Percent A 0.4 % (0.0-0.0); Lymphocytes Absolute Auto 3.58 K/mm3 (1.10-4.50); Mean Corpuscular HGB Conc 33.5 g/dL (32-36); Mean Corpuscular Hemoglobin 28.7 pg (27.0-31.0); Mean Corpuscular Volume 85.6 fL (78.0-102.0); Nucleated Red Blood Cells Absolute Auto 0.00 K/mm3 (0.00-0.00); Nucleated Red Blood Cells Perc 0.0 % (0-0.0); Platelet Count Result 278 K/mm3 (150-420); Red Blood Count 4.57 M/mm3 (4.20-5.40); White Blood Count 9.7 K/mm3 (4.8-10.8)
[2025-05-15 09:32] LABS: MALB Creatinine Ratio 5.6 mg/g (0-30)
[2025-05-15 09:56] LABS: Hemoglobin A1C 4.8 % (<5.7)
[2025-05-15 10:06] LABS: Alanine Aminotransferase 17 U/L (6-35); Albumin Level 4.2 g/dL (3.5-5.1); Alkaline Phosphatase 51 U/L (38-126); Anion Gap 4 mmol/L (4-12); Aspartate Amino Transferase 22 U/L (14-36); Bilirubin,Total 0.6 mg/dL (0.2-1.3); Blood Urea Nitrogen 11 mg/dL (7-17); Calcium 9.0 mg/dL (8.4-10.2); Carbon Dioxide 24 mmol/L (22-30); Chloride 108 mmol/L (98-107); Cholesterol 183 mg/dL (0-200); Estimated Glomerular Filt Rate > 60; Glucose 95 mg/dL (65-110); HDL Direct 51 mg/dL; Osmolality Calculated 281 mOsm/kg (285-295); Potassium 4.3 mmol/L (3.4-5.0); Sodium 136 mmol/L (137-145); Total Protein 6.6 g/dL (6.3-8.2); Triglycerides 114 mg/dL (<150)
== END 2025-05-15 09:03 | disposition home or self-care (01) ==
LOC: CHSLAB 09:04
PROVIDERS: PCP Internal Medicine; Visit Provider Internal Medicine
DX: I10 Essential (primary) hypertension (principal); E11.9 Type 2 diabetes mellitus without complications
CPT/HCPCS: 36415; 80053; 80061; 82043; 83036; 85025

== ENCOUNTER 2025-08-12 00:30 | Day surgery (SDC) | payer BC, SELFPAY ==
[2025-07-29 13:22] VITALS: BMI 32.9
--- OUTSIDE RECORDS SUMMARY | 2025-08-12 00:33 | XMS_ITS | Clinical Summary ---
Author Organization [facility] Address [address] [address] Phone Care Team Providers Care Change Director Name Role Phone Db Liz MD Primary Care Provider [phone] Allergies Active Allergy Reactions Criticality Noted Date [...] of 3 - 19+ 3-dose series) 02/15/1999 HPV VACCINES (1 - 3-dose SCDM series) 02/15/2007 BREAST CANCER SCREENING 01/08/2023 01/08/2022, 12/29 DIABETES HBA1C Q 6 MONTHS 05/28/2024 11/28/2023 COLORECTAL SCREENING 02/15/2025 Colorectal Cancer Screening 02/15/2025 FIT-DNA Q 3 years 02/15/2025 FIT/FOBT Q 1 year 02/15/2025 Flex Sig/CT Colonography Q 5 years 02/15/2025 INFLUENZA VACCINE (#1) 2025 09/21/2017, 2012 Procedures Procedure Name Priority Date/Time Associated Diagnosis [...] [facility] * Guarantor: [facility]LD [facility] (OM) Account Type Relation to Patient Date of Phone Billing Address Corporate Other [id number] [address] * Guarantor: [id number] Account Type Relation to Patient Date of Phone Billing Address Workers Comp Employer * Guarantor: [id number] Account Type Relation to Patient Date of Phone Billing Address Workers Comp Employer Advance Directives For more information, please contact: [phone] * Full Code (Latest Code Status on File) Date Activated Date Inactivated Comments 09/24/2018 4:10 PM 09/25/2018 4:49 PM * Full Code Date Activated Date Inactivated Comments 06/17/2015 7:08 AM 06/17/2015 10:28 AM * Full Code Date Activated Date Inactivated Comments 06/17/2015 6:01 AM 06/17/2015 7:08 AM Care Teams Change Director Relationship Specialty Start Date End Date Db Liz MD [address] [place] [address] PCP - General Internal Medicine 06/15/15
--- OUTSIDE RECORDS SUMMARY | 2025-08-12 00:33 | XMS_ITS | Clinical Summary ---
Author Organization [facility] Address [facility] [place] [address] Care Team Providers Care Coffee Farmer Name Role Phone Unavailable Primary Care Provider [...] 3 - 19+ 3-dose series) 02/15/1999 HPV Vaccines (1 - 3-dose SCD M series) 02/15/2007 Cervical Cancer Screening Pa p with HPV Testing (Age 30 to 64) Every 5 Years 02/15/2010 Cervical Cancer Screening with HPV 02/15/2010 Mammogram Screening 2020 COVID-19 Vaccine (2023-2 5 season) 2025 Influenza Adult (#1) 2025 Meningococcal B Vaccine Aged Out No l [...]
--- OUTSIDE RECORDS SUMMARY | 2025-08-12 00:33 | XMS_ITS | Data Portability ---
Author Organization [facility] Nafisa [facility] Address [address] [place] [address] Care Team Providers Care Underpresser Hand Name Role Phone RYNE LIZ Primary Care Provider Unavailabl e Assessment Encounter Date Assessment Date Assessment LastModified by Organization Details LastModified Time 02/10/2024 02/10/2024 Will continue with current therapy I will see her back in 6 months she will let me know how she responds to the iron. Hypertension lisinopril obesity says that she is taking the injectable GLP-1 without any side effects [email or web address] Not available 02/11/2024 13:50:56 08/31/2024 08/31/2024 obtain records from complaint coordinator for Pap smear increase lisinopril to 20 mg a day healthy lifestyle care instructions blood work continue with her GLP 1 see me in 6 weeks [email or web address] Not available 09/12/2024 22:48:12 10/12/2024 10/12/2024 her blood work has been reviewed we will continue with her GLP 1 agent. Diagnosis have been discussed continue current therapy blood work reviewed follow up in 4-6 months [email or web address] Not available 11/12/2024 18:30:27 05/10/2025 05/10/2025 We will continue current therapy healthy lifestyle care instructions blood work has been ordered to include urinary microalbumin start rosuvastatin 5 mg daily see me back in [address] Woodward her review of her Pap smears get set up with diabetic eye exam and diabetic foot exam Not available 05/10/2025 21:26:25 Plan of Treatment Reminders Order Date Submit Date Provider Last Modified By Organization Details Last Modified Time Details Appointments ANY 15 2024 10:00A Jaqueline Liz MD Not available Not available Not available Lab HbA1c (hemoglob in A1c), blood 2024 025 [facility], [address], [place], [address], 05/18/2025 11:50:08 albumin/c reatinine , mass ratio, urine 2024 025 [facility], [address], [place], [address], 05/18/2025 11:50:08 lipid panel, serum 2024 025 [facility], [address], [place], [address], 05/18/2025 11:50:08 CMP, serum or plasma 2024 025 [facility], [address], [place], [address], 05/18/2025 11:50:08 CBC w/ auto diff 2024 025 [facility], [address], [place], [address], 05/18/2025 11:50:08 HbA1c (hemoglob in A1c), blood 2023 024 [facility], [address], [place], [address], 09/14/2024 17:25:23 T3, free, serum or plasma 2023 024 [place] [address] [facility], [address], [place], [address], 09/21/2024 12:19:49 CMP, serum or plasma 2023 024 [facility], [address], [place], [address], 09/12/2024 13:05:30 CBC w/ auto diff 2023 024 [facility], [address], [place], [address], 09/14/2024 17:25:23 lipid panel, serum 2023 024 [facility], [address], [place], [address], 09/14/2024 17:25:23 TSH + free T4, serum 2023 024 [facility], [address], [place], [address], 09/14/2024 17:25:23 Referral None recorded. Procedures None recorded. Surgeries None recorded. Imaging None recorded. Medication Orders rosuvasta tin 5 mg tablet 2024 025 [email or web address] [facility], [address] [place] [address], [address], 05/10/2025 16:53:08 Mounjaro 15 mg/0.5 mL subcutane ous pen injector 2023 024 [email or web address] [facility], [address] [place] [address], [address], 10/15/2024 11:42:12 lisinopri l 20 mg tablet 2023 024 [email or web address] [facility], [address] [place] [address], [address], 08/31/2024 18:22:10 Zoloft 25 mg tablet 2023 024 [facility]se [id number], [address] [place], [address], 01/20/2025 09:20:57 Patient TargetsNo targets recorded. Patient Instructions Encounter Date Encounter Id Patient Instructions Last Modified By Organization Details Last Modified Time 08/31/2024 [id number] A healthy lifestyle: care instructions [email or web address] Not available 08/31/2024 18:22:10 10/12/2024 [id number] A healthy lifestyle: care instructions [email or web address] Not available 10/12/2024 16:05:36 05/10/2025 [id number] A healthy lifestyle: care instructions [email or web address] Not available 05/10/2025 16:53:08 Reason for Referral [...] 24 02/11/2024 Compr ehens aravind metab olic 1999 panel - Serum or Plasm a sodium [...] Testin g perfor med at: [facility] [place] [address] [facility] [id number] Lab Testi ng perfo rmed at: [facility] n [address] [facility] [address] 1269 Not Available Not Available 02/25/2025 10:43:09 02/10/20 24 02/11/2024 Compr ehens aravind metab olic 2000 panel - Serum or Plasm a interpretati on and review of laboratory results Abnorm al Not Available Not Available 10:43:09 12/30/19 25 12/28/2024 XR, knee No observ ation record ed. [email or web address] Not Available 2024 23:41:19 02/20/20 25 02/19/2025 MAMMO , scree mateus, digit al, bilat eral No observ ation record ed. [facility] [address] [facility], [place], [address], 02/22/2025 10:50:30 Result Notes None recorded. Problems Name Problem SNOMED Code Status Onset Date Resolution Date Notes Provider Name and Address Organization Details Recorded Time Essential hypertension 52569713 Active 2023 Ryne Liz MD Attn: Jhony g,[address] [facility], [place], [address], [place] [facility] 4 13:39:42 Iron deficiency anemia 65620052 Active 2023 Ryne Liz MD Attn: Nataliecarlie trevino,[address] [facility], [place], [address], [place] [facility] 4 13:39:44 History of bariatric surgical procedure 328375467 Active 2023 Ryne Liz MD Attn: Jhony uriel,[address] [facility], [place], [address], [facility] 4 13:39:45 Type 2 diabetes mellitus 59042815 Active 2023 Ryne Liz MD Attn: Jhony uriel,[address] [facility], [place], [address], [facility] 4 13:39:46 Hyperlipidemia 82629910 Active 2023 Ryne Liz MD Attn: Jhony uriel,[address] [facility], [place], [address], [facility] 4 13:39:57 Anxiety 56263269 Active 2024 Ryne Liz MD Attn: Jhony uriel,[address] [facility], [place], [address], [facility] 5 18:29:51 Problem Notes None recorded. Procedures Surgical History Date Name Laterality Status Provider Name and Address Organization Details Recorded Time Appendectomy completed Deneen Kennedy MA [facility] 02/10/2024 14:25:35 Gastric Bypass completed Deneen Kennedy MA [facility] 02/10/2024 14:25:44 ligation of bilateral fallopian tubes completed Deneen Kennedy MA [facility] 02/10/2024 14:25:58 partial hysterectomy completed Deneen Kennedy MA [facility] 02/10/2024 14:26:12 Imaging Results None recorded. Procedure [...] Not Available rosuvasta tin 5 mg tablet TAKE 1 TABLET DAILY 2024 [...] 15 mg/0.5 mL subcutane ous pen injector Inject 15 mg every week by subcutan eous route. 2024 active Not Available Not Available Not Melinda wang Mounjaro 10 mg/0.5 mL subcutane ous pen injector inject 10mg weekly for 4wks then go to 12.5mg weekly for 4wks 10/05 completed pt is taking 12.5mg now. Not Available Not Available Not Available Mounjaro 12.5 mg/0.5 mL subcutane ous pen injector INJECT 12.5MG SUBCUTAN EOUSLY WEEKLY 05/25 completed Not Available Not Available Not Available [...] Address Organization Details Last Updated DateTime 4 69767.4 7 g 35.4 kg/m2 160.02 cm 98 % 98 % 80 /min 134/84 mm[Hg] Deneen Kennedy [place] - [facility] 4 14:31:33 Date Recorded Body height Body mass index (BMI) Body weight Heart rate Oxygen saturation Oxygen saturation in Arterial blood by Pulse oximetry Systolic And Diastolic Provider Name and Address Organization Details Last Updated DateTime 5 160.02 cm 35.3 kg/m2 27790.8 8 g 85 /min 98 % 98 % 120/82 mm[Hg] Judi Goins MA [facility] 5 15:40:27 Date Recorded Body height Body mass index (BMI) Body weight Heart rate Oxygen saturation Oxygen saturation in Arterial blood by Pulse oximetry Systolic And Diastolic Provider Name and Address Organization Details Last Updated DateTime 4 160.02 cm 35.6 kg/m2 91381.0 7 g 72 /min 97 % 97 % 150/92 mm[Hg] Shila Fischer MA [facility] 4 15:11:33 Date Recorded Body height Body mass index (BMI) Body weight Heart rate Oxygen saturation Oxygen saturation in Arterial blood by Pulse oximetry Systolic And Diastolic Provider Name and Address Organization Details Last Updated DateTime 4 160.02 cm 35.9 kg/m2 09877.8 9 g 77 /min 98 % 98 % 132/70 mm[Hg] Judi Goins MA [facility] 4 15:36:11 Social History Question Answer Notes LastModified by Organizat ion Details LastModified Time Tobacco Smoking Status Former Smoker Deneen Kennedy MA [facility] 02/10/2024 14:24:43 Do You Have An [...] 08/31/2024 Are you able to care for yourself independently? Yes Information not available 02/10/2024 What is your exercise level? Occasional Information not available 02/10/2024 Mental Status Question Answer Note LastModified by Organization D etails LastModified Time Do you feel stressed (tense, restless, nervous, or anxious, or unable to sleep at night)? [id number] Information not available 02/10/2024 Family History Relationship [...] Atrial Fibrillation N High Blood Pressure Y Kidney or Bladder Problems N Thyroid Problems N GI Problems N Depression N COPD N Blood Clots N Have you had a mammogram in the last yea r? Y Skin Problems N Anemia Y Heart Attack (ME) N Anxiety Disorder N Diabetes Y Muscle, Joint, or Bone Problems N Seizures/Epilepsy N Have you had a colonoscopy in the last 1 0 years? N Acid Reflux (GERD) N Cancer N Stroke N Asthma N Allergies N High Cholesterol Y Hepatitis N Liver Disease N Headaches N Heart Failure N Osteoporosis N Gynecological [...] dose or 50 mcg/0.25mL dose 1 completed Nilay Madelindarby [place], [place] [facility] 04/10/2024 16:42:31 COVID-19, mRNA, LNP-S, PF, 30 mcg/0.3 mL dose 1 completed Nilay Maldonado [place], [place] [facility] 04/10/2024 16:42:31 COVID-19, mRNA, LNP-S, PF, 30 mcg/0.3 mL dose 1 completed Nilay Maldonado [place], [place] [facility] 04/10/2024 16:42:31 COVID-19, mRNA, LNP-S, bivalent, PF, 30 mcg/0.3 mL dose 2 completed Nilay Maldonado [place], [place] [facility] 04/10/2024 16:42:31 COVID-19, mRNA, LNP-S, PF, verna-sucrose, 30 mcg/0.3 mL 3 completed Nilay Maldonado [place], [place] [facility] 04/10/2024 16:42:31 Influenza, split virus, quadrivalent, PF 0 completed Nilay Maldonado [place], [place] [facility] 04/10/2024 16:42:31 Past Encounters Encounter ID Performer Location Encounter Start Date Encounter Closed Date Diagnosis/Indication Diagnosis SNOMED-CT Code Diagnosis ICD10 Code Diagnosis IMO Codes Diagnosis Note [id number] Ryne Liz MD [facility] [employer] [address] [place] [address] 02/10/2024 14:10:14 02/10/2024 15:18:21 Essential hypertension 83458055 I10 Iron defic iency anemia 07282141 D50.9 History of bariatric surgical procedure 386966602 Z98.84 Type 2 andi betes mellitus 62044982 E11.9 Hyperlipidemia 01231213 E78.5 [id number] Ryne Liz MD [facility] [place] [address] [place] [address] 08/31/2024 14:54:34 08/31/2024 15:52:05 Obesity 418601352 E66.9 Anxiety 36203319 F41.9 Essential hypertension 88366027 I10 Prediabetes 626345808 R7 3.03 Hyperlipidemia 27710188 E78.5 [id number] Ryne Liz MD [facility] [employer] [facility] [place] [address] [place] [address] 10/12/2024 15:22:15 10/12/2024 16:02:00 Obesity 645337045 E66.9 Type 2 andi betes mellitus 27815655 E11.9 Essential hypertension 53667191 I10 Hyperlipidemia 22419562 E78.5 [id number] Ryne Liz MD [facility] [employer] [facility] [place] [address] [place] [address] 05/10/2025 15:28:46 05/10/2025 16:10:03 Obese class II 6097171693 36823 E66.812 5314518260 BMI 35.3 Essential hypertension 00936512 I10 Type 2 andi betes mellitus 14538932 E11.9 Hyperlipidemia 80134165 E78.5 Anxiety 26049934 F41.9 Iron defic iency anemia 20140111 D50.9 Health Concerns Section Related Observation LastModified by Organization Detai ls LastModified Time None Recorded Concern Status LastModified by Organization Details LastModified Time None Recorded Advance Directives Directive N: Payers Insurance Date Sequence Insurance Name Policy Number Policy Huber Covered Member ID Huber Member ID Guarantor Name 05/11/2025 1 [place] [id number] Regulo Cox [id number] Melina Cox 02/10/2024 1 *SELF PAY* [...] Ryne Liz MD Attn: Accounting,[address] [facility], [place], [address], [place] [facility] 02/11/2024 13:51:07 08/31/2024 text/html hypertension no headache or dizzinessanxiety is bothering bit no depression no SI SIdiabetes she needs an A1c Ryne Liz MD Attn: Accounting,[address] [facility], [place], [address], [place] [facility] 09/12/2024 22:48:41 10/12/2024 text/html hypertension no headache no dizziness no shortness a breath 132/70. Obesity doing well weight loss on the GLP 1 no side effects hyperlipidemia blood work reviewed. Anxiety has been doing well Ryne Liz MD Attn: Accounting,[address] [facility], [place], [address], [place] [facility] 11/12/2024 18:30:44 05/10/2025 text/html Anxiety doing fine diabetes no polyphagia or polydipsia tolerating medications. Dyslipidemia needs to follow a low-fat diet her obesity is doing a lot better Ryne Liz MD Attn: Accounting,[address] [facility], [place], [address], [place] [facility] 05/10/2025 21:26:43 OBGyn Episode No OBEpisode recorded.
--- OUTSIDE RECORDS SUMMARY | 2025-08-12 00:34 | XMS_ITS | Clinical Summary ---
Author Organization [facility] Address [address] [place] [address] Care Team Providers Care Assistant Auto Center Manager Name Role Phone Db Liz MD Primary Care Provider [phone] Source Comments [facility],non-owned Affiliates and Associated Physician Practices is amultiple site organization consisting of ambulatory clinics and hospital sitesin [place], [place], [place] and [place]. This disclosure is being madepursuant to the Care Everywhere program and may not contain all information available regarding this patient. Last updated 18.[facility] Allergies Active Allergy Reactions Criticality Noted Date [...] Active vitamin D, ergocalciferol, (Drisdol) 1.25 MG (54028 UT) capsule Take 1 (one) capsule by [...] Comments Blood Pressure 123/71 01/16/2024 2:29 PM RADIOLOGY SUPERVISOR Pulse 79 01/16/2024 2:29 PM RADIOLOGY SUPERVISOR Temperature 36.6 C (97.8 F) 01/16/2024 2:29 PM RADIOLOGY SUPERVISOR Respiratory Rate 18 01/16/2024 2:29 PM RADIOLOGY SUPERVISOR Oxygen Saturation 100% 01/16/2024 2:29 PM RADIOLOGY SUPERVISOR Inhaled Oxygen Concentration - - Weight 91 kg (200 lb 9.6 oz) 12/25/2023 11:58 AM RADIOLOGY SUPERVISOR Height 160 cm (5' 3) 12/25/2023 11:58 AM RADIOLOGY SUPERVISOR Body Mass Index 35.53 12/25/2023 11:58 AM RADIOLOGY SUPERVISOR Plan of Treatment Health Maintenance Due Date [...] 3 - 19+ 3-dose series) 02/15/1999 HPV VACCINE (1 - 3-dose SCDM series) 02/15/2007 MAMMOGRAM 01/08/2024 01/08/2022 DEPRESSION SCREENING 11/11/2024 COVID-19 VACCINE ( - season) 2025 09/12/2021, 02/17/2021, 01/18/2021 INFLUENZA VACCINE (#1) 2025 2, 09/21/2017, 09/09/2013 [...] Agency Comment Lab Testing performed at: [facility] [place] [address] [facility] [id number] Maryse Griffin [employer] FA[employer] DRIVER LAB - CHEMISTRY TRISTAN OLIVIER Final Result [facility] ACCOUNT BILL [address] [place] [address] from Last 3 Months or Most Recently Relevant to Health Maintenance Insurance ANTH Advance Directives * Full Code (Latest Code Status on File) Date Activated Date Inactivated Comments 11/27/2023 11:07 AM 11/28/2023 7:20 PM * Full Code Date Activated Date Inactivated Comments 02/03/2019 2:42 PM 02/05/2019 1:48 PM Care Teams Assistant Auto Center Manager Relationship Specialty Start Date End Date Db Liz MD PCP - General Internal Medicine 07/17/18
--- NOTE | 2025-08-12 07:14 | WPDANESEPPF ---
Anes - Initial Pre Proc Eval Procedure: Operation Date: 08/12/25 09:30 Proposed Procedures p Diagnostic Colonoscopy - Bruce Brewer MD Date/Time: 08/12/25 07:14 Surgeon: Bruce Brewer MD Pre Op Diagnosis: colon screening Patient Data Age: 45 Gender: F Height: 1.63 m Weight: 87 kg Allergies Allergy/AdvReac Type Severity Reaction Status Date / Time No Known Allergies Allergy Verified 08/12/25 08:18 Home Medications ?Medication ?Instructions ?Recorded ?Confirmed ?Type tirzepatide 15 mg/0.5 mL 15 mg subcut WEEKLY 12/28/24 08/12/25 History subcutaneous pen injector (Rolly) Patient hx anesthesia problems: none Family hx anesthesia problems: none Results Review: All pre-operative results and documents have been reviewed as part of the pre-operative evaluation. [facility] Past Medical History Medical History (Updated 08/12/25 @ 09:16 by Bruce Brewer MD) Colon cancer screening Hypertension Diabetes Sensitivity to medication [place] Surgical History Surgical History History of gastric surgery Revision Sleeve History of hysterectomy History of gastric surgery (~2015) Gastric sleeve Family History Family History Other Breast cancer Father Diabetes mellitus Acute myocardial infarction Mother Diabetes mellitus Social History Social History Smoking packs per day: 0.5 Smoking cigarettes per day: 10.0 Years smoked: 5 Smoking pack-years: 2.50 Smoking status: Former smoker Tobacco type: cigarettes Alcohol intake: current Alcohol use details: socially Substance use: current Substance use type: marijuana and other Other substance usage details: Gummies Lack of Transportation: No Lack of Food: Never True Current Housing: I Have Housing Concerned About Future Housing: No Difficulty Paying Gas/Electric Bills: No Difficulty Paying for Meds: No Currently Unemployed: No Education: Associate Degree Difficulty w/ Childcare or Family Care: No Living arrangements: with family Spiritual care concerns: No Anes - Eval Final PreProcedure Day of Procedure 08/12/25 07:14 Patient weight: obese Heart: regular rate and rhythm Lungs: clear to auscultation Airway: Mallampati scale class II Neurological: alert and oriented Last oral intake: >/= 8 hours ASA classification: III Emergent: no Anesthetic plan: proceed Anesthesia type and monitoring: general GIVS and standard monitoring Results Review: All pre-operative results and documents have been reviewed as part of the pre-operative evaluation. Informed Consent: The patient's anesthetic plan and its attendant risks and benefits were discussed with the patient/family/POA. Questions were solicited and answers provided to the satisfaction of the patient/family/POA.
[2025-08-12 08:10] VITALS: BP 126/88; PULSE 73; RESP 16; TEMP 36.7; O2SAT 99; BMI 34.4
[2025-08-12] MEDS: LACTATED RINGERS 1,000 ML 150 ML IV CONT (08:34)
--- NOTE | 2025-08-12 09:15 | PM.HPGS ---
History of Present Illness History of Present Illness Consent: Risks, benefits, and alternatives have been discussed and questions answered. Patient agrees to proceed with procedure. Chief complaint: colon screening Narrative: Melina Cox is a 45 year old female here for first screening colonoscopy Review of Systems Review of Systems: All systems reviewed & are unremarkable except as noted in HPI and below PMFSH Past Medical History Medical History (Updated 08/12/25 @ 09:16 by Bruce Brewer MD) Colon cancer screening Hypertension Diabetes Sensitivity to medication [place] Surgical History Surgical History History of gastric surgery Revision Sleeve History of hysterectomy History of gastric surgery (~2016) Gastric sleeve Family History Family History Other Breast cancer Father Diabetes mellitus Acute myocardial infarction Mother Diabetes mellitus Social History Social History Smoking packs per day: 0.5 Smoking cigarettes per day: 10.0 Years smoked: 5 Smoking pack-years: 2.50 Smoking status: Former smoker Tobacco type: cigarettes Alcohol intake: current Alcohol use details: socially Substance use: current Substance use type: marijuana and other Other substance usage details: Gummies Lack of Transportation: No Lack of Food: Never True Current Housing: I Have Housing Concerned About Future Housing: No Difficulty Paying Gas/Electric Bills: No Difficulty Paying for Meds: No Currently Unemployed: No Education: Associate Degree Difficulty w/ Childcare or Family Care: No Living arrangements: with family Spiritual care concerns: No Meds Home Medications and Allergies Home Medications ?Medication ?Instructions ?Recorded ?Confirmed ?Type tirzepatide 15 mg/0.5 mL 15 mg subcut WEEKLY 12/28/24 08/12/25 History subcutaneous pen injector (Rolly) Allergies Allergy/AdvReac Type Severity Reaction Status Date / Time No Known Allergies Allergy Verified 08/12/25 08:18 Vital Signs Vital Signs - 24 hr 08/12/25 08:10 Temperature 98.0 F Pulse Rate 73 Respiratory Rate 16 Blood Pressure 126/88 Pulse Oximetry 99 Oxygen Delivery Room Air Exam Const: General: comfortable and no acute distress HENMT: Face/Nose/Sinus: Normal nares present Eyes: General: appearance normal, both eyes and all related structures Neck: Neck: no JVD Resp: Auscultation: clear to auscultation bilaterally Cardio: Rate: regular rate Rhythm: regular rhythm GI: Inspection: non-distended GI Palp: Yes Soft to palpation Skin: General skin exam: normal color Extrem: General: normal to inspection Psych: Mental Status: mental status grossly normal Assessment and Plan Assessment and plan (1) Colon cancer screening: Code(s): Z12.11 - Encounter for screening for malignant neoplasm of colon Status: Acute Assessment and Plan: colonoscopy
--- NOTE | 2025-08-12 09:28 | S_PTH ---
PATIENT: Melina Cox LOC: [facility]#:[id number] AGE/SX: 45/F ROOM: RE08/12/[address]: Bruce Brewer MD : 1980 BED: DIS: 08/12/2025 SPEC #: [id number] RECD: 08/12/25 10:01 STATUS: BRENDA REYamini #: [id number] KOKI: 08/12/25 09:[address]: Bruce Brewer DEPT: [facility] Surgical RECD BY: Katina Zepeda MLT, ([facility]) ENTERED: 08/12/25 10:01 SP TYPE: Surgical OTHR DR: Db LizMD Tissues: A - Colon Polypectomy Procedures: Hematoxylin and Eosin Stain Gross and Microscopic Level 4
[2025-08-12 09:29] VITALS: BP 104/71; PULSE 75; RESP 16; O2SAT 99
[2025-08-12 09:39] VITALS: BP 102/77; PULSE 70; RESP 20; O2SAT 100
[2025-08-12 09:49] VITALS: BP 111/60; PULSE 66; RESP 19; O2SAT 100
== END 2025-08-12 09:58 | disposition home or self-care (01) ==
PROVIDERS: PCP Internal Medicine; Referring Provider Internal Medicine; Visit Provider Internal Medicine Gastroenterology
PROC: 0DJD8ZZ Inspection of Lower Intestinal Tract, Via Natural or Artificial Opening Endoscopic (ICD-10-PCS; CPT 45378; principal; 2025-08-12 09:30)
DX: Z12.11 Encounter for screening for malignant neoplasm of colon (principal); D12.3 Benign neoplasm of transverse colon; K64.8 Other hemorrhoids; Z98.84 Bariatric surgery status; E11.9 Type 2 diabetes mellitus without complications; Z87.891 Personal history of nicotine dependence; F12.90 Cannabis use, unspecified, uncomplicated; E66.9 Obesity, unspecified; Z68.34 Body mass index [BMI] 34.0-34.9, adult
CPT/HCPCS: 45385; 82948; 88305; J2704; J7120

== ENCOUNTER 2025-11-09 07:20 | Outpatient (CLI) | payer BC, SELFPAY ==
--- OUTSIDE RECORDS SUMMARY | 2025-11-09 07:23 | XMS_ITS | Clinical Summary ---
Author Organization [facility] Address [address] [place] [address] Phone Care Team Providers Care Cfo Controller Name Role Phone Db Liz MD Primary Care Provider [phone] Allergies Active Allergy Reactions Criticality Noted Date [...] 3-dose series) 02/15/1999 BREAST CANCER SCREENING 01/08/2023 01/08/2022, 12/29 DIABETES HBA1C Q 6 MONTHS 05/28/2024 11/28/2023 COLORECTAL SCREENING 02/15/2025 Colorectal Cancer Screening 02/15/2025 FIT-DNA Q 3 years 02/15/2025 FIT/FOBT Q 1 year 02/15/2025 Flex Sig/CT Colonography Q 5 years 02/15/2025 INFLUENZA VACCINE (#1) 2025 09/21/2017, 2012 HPV VACCINES (No Doses Required) Completed Procedures Procedure Name Priority Date/Time Associated Diagnosis [...] Maintenance Insurance BCBS BLUE ACCESS/TRUE BLUE PPO Express * Guarantor: OLD ACCT-OCC MED [facility] (OM) Account Type Relation to Patient Date of Phone Billing Address Corporate Other [address] [place] [address] * Guarantor: [id number] Account Type Relation to Patient Date of Phone Billing Address Workers Comp Employer * Guarantor: [id number] Account Type Relation to Patient Date of Phone Billing Address Workers Comp Employer Advance Directives For more information, please contact: [phone] * Full Code (Latest Code Status on File) Date Activated Date Inactivated Comments 09/24/2018 4:10 PM 09/25/2018 4:49 PM * Full Code Date Activated Date Inactivated Comments 06/17/2015 7:08 AM 06/17/2015 10:28 AM * Full Code Date Activated Date Inactivated Comments 06/17/2015 6:01 AM 06/17/2015 7:08 AM Care Teams Cfo Controller Relationship Specialty Start Date End Date Db Liz MD [address] [place] [address] PCP - General Internal Medicine 06/15/15
--- OUTSIDE RECORDS SUMMARY | 2025-11-09 07:23 | XMS_ITS | Clinical Summary ---
Author Organization [facility] Address [address] [facility] [place] [address] Care Team Providers Care Rn Training Name Role Phone Db Liz MD Primary Care Provider [phone] Source Comments [facility],non-owned Affiliates and Associated Physician Practices is amultiple site organization consisting of ambulatory clinics and hospital sitesin [place], [place], [place] and [place]. This disclosure is being madepursuant to the Care Everywhere program and may not contain all information available regarding this patient. Last updated 18.[facility]untr [facility] Allergies Active Allergy Reactions Criticality Noted Date [...] Active vitamin D, ergocalciferol, (Drisdol) 1.25 MG (23153 UT) capsule Take 1 (one) capsule by [...] Comments Blood Pressure 123/71 01/16/2024 2:29 PM RN TRAINING Pulse 79 01/16/2024 2:29 PM RN TRAINING Temperature 36.6 C (97.8 F) 01/16/2024 2:29 PM RN TRAINING Respiratory Rate 18 01/16/2024 2:29 PM RN TRAINING Oxygen Saturation 100% 01/16/2024 2:29 PM RN TRAINING Inhaled Oxygen Concentration - - Weight 91 kg (200 lb 9.6 oz) 12/25/2023 11:58 AM RN TRAINING Height 160 cm (5' 3) 12/25/2023 11:58 AM RN TRAINING Body Mass Index 35.53 12/25/2023 11:58 AM RN TRAINING Plan of Treatment Health Maintenance Due Date [...] Agency Comment Lab Testing performed at: [facility] [place] [address] [facility] [id number] Maryse Griffin [employer] [facility] - CHEMISTRY TRISTAN OLIVIER Final Result [facility] ACCOUNT BILL [address] [place] [address] from Last 3 Months or Most Recently Relevant to Health Maintenance Insurance [facility] SELF PAY NO INSURANCE Member Subscriber Plan / Payer (Ef fective for All Dates) Name:Ifeoma Begum Member ID:Not on file Relation to Subscriber:Not on file Name:IFEOMA BEGUM Subscriber ID:Not on file (Home) Address: [address] [place] [id number] Payer ID:Not on file Group ID:Not on file Type:Self Pay Address: [place], [place] Advance Directives * Full Code (Latest Code Status on File) Date Activated Date Inactivated Comments 11/27/2023 11:07 AM 11/28/2023 7:20 PM * Full Code Date Activated Date Inactivated Comments 02/03/2019 2:42 PM 02/05/2019 1:48 PM Care Teams Rn Training Relationship Specialty Start Date End Date Db Liz MD PCP - General Internal Medicine 07/17/18
--- OUTSIDE RECORDS SUMMARY | 2025-11-09 07:23 | XMS_ITS | Data Portability ---
Author Organization [facility] Address [address] [place] [address] Care Team Providers Care Kosher Dietary Service Manager Name Role Phone RYNE LIZ Primary Care Provider RIKY Byrne Director Of Customer Acquisition [phone] [facility] Ophthalmo logist MILLA GALINDO JR Insulation Foreman [phone] Assessment Encounter Date Assessment Date Assessment LastModified by Organization Details LastModified Time 02/10/2024 02/10/2024 Will continue with current therapy I will see her back in 6 months she will let me know how she responds to the iron. 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 Diagnosis have been discussed continue current therapy blood work reviewed follow up in 4-6 months [email or web address] Not available 11/12/2024 18:30:27 05/10/2025 05/10/2025 We will continue current therapy healthy lifestyle care instructions blood work has been ordered to include urinary microalbumin start rosuvastatin 5 mg daily see me back in [address] Woodward her review of her Pap smears get set up with diabetic eye exam and diabetic foot exam [email or web address] Not available 05/10/2025 21:26:25 Plan of Treatment Reminders Order Date Submit Date Provider Last Modified By Organization Details Last Modified Time Details Appointments ANY 15 2025 10:00A M Ryne Liz MD Not available Not available Not available Lab HbA1c (hemoglob in A1c), blood 2024 025 HERIBERTO [facility], [address], [place], [address], 05/18/2025 11:50:08 albumin/c reatinine , mass ratio, urine 2024 025 HERIBERTO [facility], [address], [place], [address], 05/18/2025 11:50:08 lipid panel, serum 2024 025 HERIBERTO [facility], [address], [place], [address], 05/18/2025 11:50:08 CMP, serum or plasma 2024 025 HERIBERTO [facility], [address], [place], [address], 05/18/2025 11:50:08 CBC w/ auto diff 2024 025 [email or web address] [facility], [address], [place], [address], 05/18/2025 11:50:08 HbA1c (hemoglob in A1c), blood 2023 024 HERIBERTO [facility], [address], [place], [address], 09/14/2024 17:25:23 T3, free, serum or plasma 2023 024 [email or web address] [facility], [address], [place], [address], 09/21/2024 12:19:49 CMP, serum or plasma 2023 024 [facility], [address], [place], [address], 09/12/2024 13:05:30 CBC w/ auto diff 2023 024 [facility], [address], [place], [address], 09/14/2024 17:25:23 lipid panel, serum 2023 024 [facility], [address], [place], [address], 09/14/2024 17:25:23 TSH + free T4, serum 2023 024 [facility], [address], [place], [address], 09/14/2024 17:25:23 Referral None recorded. Procedures None recorded. Surgeries None recorded. Imaging None recorded. Medication Orders rosuvasta tin 5 mg tablet 2024 025 [email or web address] [facility], [address] [place] [address], [address], 05/10/2025 16:53:08 Mounjaro 15 mg/0.5 mL subcutane ous pen injector 2023 024 [email or web address] [email or web address], [address] [place] [address], [address], 10/15/2024 11:42:12 lisinopri l 20 mg tablet 2023 024 [email or web address] [facility], [address] [place] [address], [address], 08/31/2024 18:22:10 Zoloft 25 mg tablet 2023 024 [facility]se [id number], [address] [place], [address], 01/20/2025 09:20:57 Patient TargetsNo targets recorded. Patient Instructions Encounter Date Encounter Id Patient Instructions Last Modified By Organization Details Last Modified Time 08/31/2024 [id number] A healthy lifestyle: care instructions Not available 08/31/2024 18:22:10 10/12/2024 [id number] A healthy lifestyle: care instructions [email or web address] Not available 10/12/2024 16:05:36 05/10/2025 [id number] A healthy lifestyle: care instructions [email or web address] Not available 05/10/2025 16:53:08 Reason for Referral [...] 1999 panel - Serum or Plasm a BUN/creatini [...] 1999 panel - Serum or Plasm a potassium 4.3 mmol/ L low: 3.5mmo l/Lhig h: 5.2mmo l/L Potas sium 4.3 3.5 - 5.2 mmol/ L [facility] ACCOU NT BILL Not Available Not Available 02/25/2025 10:43:09 02/10/20 24 02/11/2024 Compr ehens aravind metab olic 1999 panel - Serum or Plasm a chloride 107 mmol/ L low: 96mmol /Lhigh : 106mmo l/L high Chlor luz maria 107 (H) 96 - 106 mmol/ L [facility] ACCOU NT BILL Not Available Not Available 02/25/2025 10:43:09 02/10/20 24 02/11/2024 Compr ehens aravind metab olic 1999 panel - Serum or Plasm a CO2 20 mmol/ L low: 20mmol /Lhigh : 29mmol /L CO2 20 20 - 29 mmol/ L [facility] ACCOU NT BILL Not Available Not Available 02/25/2025 10:43:09 02/10/20 24 02/11/2024 Compr ens aravind metab olic 1999 panel - Serum or Plasm a calcium 9 mg/dL low: 8.7mg/ dLhigh : 10.2mg /dL Calci um 9.0 8.7 - 10.2 mg/dL [facility] ACC[facility] NT BILL Not Available Not Available 02/25/2025 10:43:09 02/10/20 24 02/11/2024 Compr ens aravind metab olic 1999 panel - Serum or Plasm a protein total 6.4 g/dL low: 6g/dLh igh: 8.5g/d L Prote in Total 6.4 6.0 - 8.5 g/dL [facility] ACCOU NT BILL Not Available Not Available 02/25/2025 10:43:09 02/10/20 24 02/11/2024 Compr ens aravind metab olic 2000 panel - Serum or Plasm a albumin 4.2 g/dL low: 3.9g/d Lhigh: 4.9g/d L Album in 4.2 3.9 - 4.9 g/dL [facility] ACCOU NT BILL Not Available Not Available 02/25/2025 10:43:09 02/10/20 24 02/11/2024 Compr ens aravind metab olic 2000 panel - Serum or Plasm a globulin total 2.2 g/dL low: 1.5g/d Lhigh: 4.5g/d L Globu ambika Total 2.2 1.5 - 4.5 g/dL [facility] ACCOU NT BILL Not Available Not Available 02/25/2025 10:43:09 02/10/20 24 02/11/2024 Compr ens aravind metab olic 2000 panel - Serum or Plasm a albumin/glob ulin ratio 1.9 low: 1.2hig h: 2.2 Album in/Gl obuli n Ratio 1.9 1.2 - 2.2 [facility] ACCOU NT BILL Not Available Not Available 02/25/2025 10:43:09 02/10/20 24 02/11/2024 Compr ens aravind metab olic 2000 panel - Serum [...] Testin g perfor med at: [facility] [address] [facility] [id number] Lab Testi ng perfo rmed at: [facility], [place] [address] [facility] [address] Not Available Not Available 02/25/2025 10:43:09 02/10/20 24 02/11/2024 Compr ehens aravind metab olic 2000 panel - Serum or Plasm a interpretati on and review of laboratory results Abnorm al Not Available Not Available 10:43:09 12/30/19 25 12/28/2024 XR, knee No observ ation record ed. [email or web address] Not Available 2024 23:41:19 02/20/20 25 02/19/2025 MAMMO , scree mateus, digit al, bilat eral No observ ation record ed. [facility] [address] [place], [address], 02/22/2025 10:50:30 Result Notes None recorded. Problems Name Problem SNOMED Code Status Onset Date Resolution Date Notes Provider Name and Address Organization Details Recorded Time Essential hypertension 52163626 Active 2023 Ryne Liz MD Attn: Jhony uriel,[address] [facility], [place], [place], [address] [place] [address] 2, [facility] 4 13:39:42 Iron deficiency anemia 41494356 Active 2023 Ryne Liz MD Attn: Jhony trevino,[address] [facility], [place], [place], [address] [place] [address] 2, [facility] - [facility] 4 13:39:44 History of bariatric surgical procedure 613070685 Active 2023 Ryne Liz MD Attn: Jhony trevino,[address] [facility], [place], [address] [place] [address] 2, [facility] - [facility] 4 13:39:45 Type 2 diabetes mellitus 41287442 Active 2023 Ryne Liz MD Attn: Jhony trevino,[address] [facility], [place], [address], [facility] - [facility] 4 13:39:46 Hyperlipidemia 84242189 Active 2023 Ryne Liz MD Attn: Jhony trevino,[address] [facility], [place], [address] [place] [address] 2, [facility] - [facility] 4 13:39:57 Anxiety 22771091 Active 2024 Ryne Liz MD Attn: Jhony trevino,[address] [facility], [place], [address], [facility] - [facility] 5 18:29:51 Problem Notes None recorded. Procedures Surgical History Date Name Laterality Status Provider Name and Address Organization Details Recorded Time Appendectomy completed Deneen Kennedy MA [facility] 02/10/2024 14:25:35 Gastric Bypass completed Deneen Kennedy MA [facility] 02/10/2024 14:25:44 ligation of bilateral fallopian tubes completed Deneen Kennedy MA [facility] 02/10/2024 14:25:58 partial hysterectomy completed Deneen Kennedy MA [place] - [facility] 02/10/2024 14:26:12 Imaging Results None recorded. Procedure Notes None recorded. Medical Equipment None Reported. Allergies Allergen ID Allergen Name Allergen Category Reaction Reaction Severity Criticality Documentation Date Start Date Code Code System Note Provider Name and Address Organization Details Recorded Time 19850512 Non-stero idal anti-infl ammatory agent (substanc e) medicatio n Not available Not available Not available 08/27/2025 01090 5008 SNOMED Not Available heriberto - External Data Service - prod 10:18:29 Medications Name Sig Start Date Stop Date Status Note LastModified by Organization Details LastModified Time Prescript ion - Prior Authoriza tion Request active Not Available Not Available Not Available BD Luer-Rebeca Syringe 3 mL 23 x 1 USE 3 SYRINGES ONCE DAILY FOR 3 DAYS active Not Available Not Available No t Available buspirone 5 mg tablet TAKE 1 TABLET BY MOUTH TWICE A DAY active Not Available Not Available No [...] TAKE 1 CAPSULE BY MOUTH EVERY DAY 11/01 completed Not Available Not Available Not Available ergocalci ferol (vitamin D2) 1,250 mcg [...] Not Available Not Available Not Avai lable Flowflex COVID-19 Antigen Home Test kit 02/09 [...] Not Available Not Available Not Avai lable Mounjaro 10 mg/0.5 mL subcutane ous pen [...] mass index (BMI) Body height Oxygen saturation Heart rate Systolic And Diastolic Provider Name and Address Organization Details Last Updated DateTime 4 34900.4 7 g 35.4 kg/m2 160.02 cm 98 % 80 /min 134/84 mm[Hg] Deneen Kennedy MA [facility] 4 14:31:33 Date Recorded Body height Body mass index (BMI) Body weight Heart rate Oxygen saturation Systolic And Diastolic Provider Name and Address Organization Details Last Updated DateTime 5 160.02 cm 35.3 kg/m2 88313.8 8 g 85 /min 98 % 120/82 mm[Hg] Judi Goins MA [facility] 5 15:40:27 Date Recorded Body height Body mass index (BMI) Body weight Heart rate Oxygen saturation Systolic And Diastolic Provider Name and Address Organization Details Last Updated DateTime 4 160.02 cm 35.6 kg/m2 14303.0 7 g 72 /min 97 % 150/92 mm[Hg] Shila Fischer MA [facility] 4 15:11:33 Date Recorded Body height Body mass index (BMI) Body weight Heart rate Oxygen saturation Systolic And Diastolic Provider Name and Address Organization Details Last Updated DateTime 4 160.02 cm 35.9 kg/m2 66906.8 9 g 77 /min 98 % 132/70 mm[Hg] Judi Goins MA [facility] 4 15:36:11 Date Recorded Body height Body mass index (BMI) Body weight Heart rate Oxygen saturation Systolic And Diastolic Provider Name and Address Organization Details Last Updated DateTime 5 160.02 cm 36.2 kg/m2 15179.2 g 84 /min 99 % 114/70 mm[Hg] Shila Fischer MA [facility] 5 11:24:25 Social History Question Answer Notes LastModified by Organizat ion Details LastModified Time Tobacco Smoking Status Former Smoker Deneen Kennedy MA [facility], [place] - [facility] 02/10/2024 14:24:43 Do You Have An Advance [...] Date Of Your Most Recent Tobacco Screening? 11/01/2025 Information not available 11/01/2025 What Is Your Current Pack Years? 10-19packyear [...] anxious, or unable to sleep at night)? [id number] Information not available 02/10/2024 Family History Relationship [...] Skin Problems N Anemia Y Heart Attack (OR) N Anxiety Disorder N Diabetes Y Muscle, [...] Influenza, split virus, quadrivalent, preservative 7 completed Nilay Maldonado [place] null, [place] - [facility] 04/10/2024 16:42:31 Influenza, MDCK, quadrivalent, PF 3 completed Nilay Maldon[place] [facility] 04/10/2024 16:42:31 COVID-19, mRNA, LNP-S, PF, 100 mcg/0.5mL dose or 50 mcg/0.25mL dose 1 completed Nilay Maldonado [place], [place] [facility] 04/10/2024 16:42:31 COVID-19, mRNA, LNP-S, PF, 100 mcg/0.5mL dose or 50 mcg/0.25mL dose 1 completed Nilay Maldon[place] [facility] 04/10/2024 16:42:31 COVID-19, mRNA, LNP-S, PF, 30 mcg/0.3 mL dose 1 completed Nilay [place]don[place] [facility] 04/10/2024 16:42:31 COVID-19, mRNA, LNP-S, PF, 30 mcg/0.3 mL dose 1 completed Nilay Maldon[place] [facility] 04/10/2024 16:42:31 COVID-19, mRNA, LNP-S, bivalent, PF, 30 mcg/0.3 mL dose 2 completed Nilay Maldon[place] [facility] 04/10/2024 16:42:31 COVID-19, mRNA, LNP-S, PF, verna-sucrose, 30 mcg/0.3 mL 3 completed Nilay Maldonado [place], [place] [facility] 04/10/2024 16:42:31 Influenza, split virus, quadrivalent, PF 0 completed Nilay Maldonado MA [facility] 04/10/2024 16:42:31 Past Encounters Encounter ID Performer Location Encounter Start Date Encounter Closed Date Diagnosis/Indication Diagnosis SNOMED-CT Code Diagnosis ICD10 Code Diagnosis IMO Codes Diagnosis Note [id number] Ryne Liz MD [facility] [employer] - [place] [address] [place] [address] 02/10/2024 14:10:14 02/10/2024 15:18:21 Essential hypertension 91108693 I10 Iron defic iency anemia 78834070 D50.9 History of bariatric surgical procedure 409783918 Z98.84 Type 2 andi betes mellitus 32243805 E11.9 Hyperlipidemia 92776295 E78.5 [id number] Ryne Liz MD [facility] [employer] [place] [address] [place] [address] 08/31/2024 14:54:34 08/31/2024 15:52:05 Obesity 948191787 E66.9 Anxiety 47763572 F41.9 Essential hypertension 76130873 I10 Prediabetes 335285193 R7 3.03 Hyperlipidemia 75522547 E78.5 [id number] Ryne Liz MD [facility] [employer] [place] [address] [place] [address] 10/12/2024 15:22:15 10/12/2024 16:02:00 Obesity 816275309 E66.9 Type 2 andi betes mellitus 45910922 E11.9 Essential hypertension 40378843 I10 Hyperlipidemia 86951617 E78.5 [id number] Ryne Liz MD [facility] [employer] [place] [address] [place] [address] 05/10/2025 15:28:46 05/10/2025 16:10:03 Obese class II 3230776262 52990 E66.812 6099295971 BMI 35.3 Essential hypertension 86652874 I10 Type 2 andi betes mellitus 26520030 E11.9 Hyperlipidemia 39632821 E78.5 Anxiety 96065581 F41.9 Iron defic iency anemia 98079223 D50.9 [id number] Ryne Liz MD [facility] - [place] Rodriguez [address] [place] [address] 11/01/2025 10:54:15 11/01/2025 12:02:14 Obese class II 5754068791 05062 E66.812 E66.3 9091275093 BMI 36.2 Hyperlipidemia 39047212 E78.5 Type 2 andi betes mellitus 01973407 E11.9 Anxiety 86536137 F41.9 Essential hypertension 62562143 I10 Health Concerns Section Related Observation LastModified by Organization Detai ls LastModified Time None Recorded Concern Status LastModified by Organization Details LastModified Time None Recorded Advance Directives Directive N: Payers Insurance Date Sequence Insurance Name Policy Number Policy Huber Covered Member ID Huber Member ID Guarantor Name 10/29/2025 1 [place] [id number] Regulo Cox [id number] Melina Cox 02/10/2024 1 *SELF PAY* Ca alysia Cox Notes Date Note Type Note Provider [...] GLP-1 Ryne Liz MD Attn: Accounting,[address] [place], [address], [facility] - [facility] 02/11/2024 13:51:07 08/31/2024 text/html hypertension no headache or dizzinessanxiety is bothering bit no depression no SI SIdiabetes she needs an A1c Ryne Liz MD Attn: Accounting[address] [place], [address], [facility] - [facility] 09/12/2024 22:48:41 10/12/2024 text/html hypertension no headache no dizziness no shortness a breath 132/70. Obesity doing well weight loss on the GLP 1 no side effects hyperlipidemia blood work reviewed. Anxiety has been doing well Ryne Liz MD Attn: Accounting,[address], [place], [address], [facility] - [facility] 11/12/2024 18:30:44 05/10/2025 text/html Anxiety doing fine diabetes no polyphagia or polydipsia tolerating medications. Dyslipidemia needs to follow a low-fat diet her obesity is doing a lot better Ryne Liz MD Attn: Accounting,[address] [facility], [place], [address], [facility] - [facility] 05/10/2025 21:26:43 OBGyn Episode No OBEpisode recorded.
[2025-11-09 07:33] LABS: Hematocrit 39.1 % (35.0-49.0); Hemoglobin 13.2 g/dL (12.0-15.0); Immature Granulocyte Percent A 0.4 % (0.0-0.0); Lymphocytes Absolute Auto 2.95 K/mm3 (1.10-4.50); Mean Corpuscular HGB Conc 33.8 g/dL (32-36); Mean Corpuscular Hemoglobin 29.3 pg (27.0-31.0); Mean Corpuscular Volume 86.7 fL (78.0-102.0); Nucleated Red Blood Cells Absolute Auto 0.00 K/mm3 (0.00-0.00); Nucleated Red Blood Cells Perc 0.0 % (0-0.0); Platelet Count Result 293 K/mm3 (150-420); Red Blood Count 4.51 M/mm3 (4.20-5.40); White Blood Count 8.4 K/mm3 (4.8-10.8)
[2025-11-09 07:49] LABS: Hemoglobin A1C 4.7 % (<5.7)
[2025-11-09 08:19] LABS: Alanine Aminotransferase 22 U/L (6-35); Albumin Level 4.6 g/dL (3.5-5.1); Alkaline Phosphatase 69 U/L (38-126); Anion Gap 11 mmol/L (4-12); Aspartate Amino Transferase 25 U/L (14-36); Bilirubin,Total 0.5 mg/dL (0.2-1.3); Blood Urea Nitrogen 12 mg/dL (7-17); Calcium 9.5 mg/dL (8.4-10.2); Carbon Dioxide 22 mmol/L (22-30); Chloride 110 mmol/L (98-107); Cholesterol 166 mg/dL (0-200); Estimated Glomerular Filt Rate > 60; Glucose 99 mg/dL (65-110); HDL Direct 67 mg/dL; Osmolality Calculated 295 mOsm/kg (285-295); Potassium 4.1 mmol/L (3.4-5.0); Sodium 143 mmol/L (137-145); Total Protein 7.2 g/dL (6.3-8.2); Triglycerides 105 mg/dL (<150)
== END 2025-11-09 07:21 | disposition home or self-care (01) ==
LOC: CHSLAB 07:21
PROVIDERS: PCP Internal Medicine; Visit Provider Internal Medicine
DX: E11.9 Type 2 diabetes mellitus without complications (principal); I10 Essential (primary) hypertension
CPT/HCPCS: 36415; 80053; 80061; 83036; 85025